=== PATIENT | female | born 1955 | race Caucasian/White ===

== ENCOUNTER 2020-01-03 10:16 | Outpatient (CLI) | payer MEDICARE, MEDICAID, SELFPAY ==
[2020-01-03 10:30] VITALS: PULSE 86; O2SAT 95
[2020-01-03 10:35] VITALS: PULSE 110; O2SAT 84
[2020-01-03 10:37] VITALS: O2SAT 85
[2020-01-03 10:39] VITALS: PULSE 103; O2SAT 87
[2020-01-03 10:42] VITALS: PULSE 100; O2SAT 93
[2020-01-03 10:55] VITALS: PULSE 82; O2SAT 93
--- NOTE | 2020-01-03 12:49 | HOMEO2EVAL ---
Home Oxygen Evaluation RC: Home Oxygen (O2) Evaluation Start: 01/03/20 12:32 Freq: Status: Active Protocol: RPE Activity Type Activity Date Activity User E-Sign Co-Sign Detail Recorded Client Recorded Date Recorded By Document 01/03/20 10:30 [email or web address] [email or web address] 01/03/20 12:41 DJO Document 01/03/20 10:35 [email or web address] [email or web address] 01/03/20 12:41 DJO Document 01/03/20 10:37 [email or web address] [email or web address] 01/03/20 12:41 DJO Document 01/03/20 10:39 DJO [email or web address] 01/03/20 12:41 DJO Document 01/03/20 10:42 [email or web address] [email or web address] 01/03/20 12:41 DJO Document 01/03/20 10:55 [email or web address] [email or web address] 01/03/20 12:41 DJO 01/03/20 01/03/20 01/03/20 10:30 10:35 10:37 Home O2 Evaluation Test Phase Resting Exercise Exercise Oxygen Delivery Room Air Room Air Nasal Cannula Oxygen Flow Rate (L/min) 1 Pulse Oximetry (90-100 %) 95 84 L 85 L Pulse Rate (60-100 beats/min) 86 110 H Activity Tolerance Fair Rating of Perceived Dyspnea (PD) +3 Moderate Difficulty, But Can Continue Rate of Perceived Exertion (PE) 13 Somewhat Hard Ambulation Distance (feet) 100 Treatment Charges O2 Evaluation 01/03/20 01/03/20 01/03/20 10:39 10:42 10:55 Home O2 Evaluation Test Phase Exercise Exercise Resting Oxygen Delivery Nasal Cannula Nasal Cannula Room Air Oxygen Flow Rate (L/min) 2 3 Pulse Oximetry (90-100 %) 87 L 93 93 Pulse Rate (60-100 beats/min) 103 H 100 82 Activity Tolerance Rating of Perceived Dyspnea (PD) Rate of Perceived Exertion (PE) Ambulation Distance (feet) Treatment Charges
== END 2020-01-03 10:17 | disposition home or self-care (01) ==
LOC: ANHPFT 10:19
PROVIDERS: PCP Internal Medicine; Visit Provider Nurse Practitioner Family
DX: J44.9 Chronic obstructive pulmonary disease, unspecified (principal)
CPT/HCPCS: 94618

== ENCOUNTER 2020-01-10 12:21 | Outpatient (CLI) | payer MEDICARE, MEDICAID, SELFPAY ==
--- NOTE | ~2020-01-10 | CT_ITS ---
EXAMINATION: CT lung screening EXAM DATE: 01/10/2020 12:42 INDICATION: Personal history of nicotine dependence. TECHNIQUE: Spiral low dose CT of the chest without contrast. Axial, coronal and sagittal images were reviewed. The dose-length product (DLP) for this examination was 172.74 mGy-cm. The exposure was t ailored according to patient size (auto mA exposure control), and iterative reconstruction (ASIR) was used as additional dose reduction technique. Comparison is made to prior examination from 12/26/2018. FINDINGS: Previously biopsied left upper lobe nodule has decreased in size, now measures about 1.0 c m. There is another 3 mm left upper lobe nodule also unchanged. Several other smaller left upper lobe nodules, one of which may be new. There is moderate to severe emphysema Tracheobronchial tree is pat ent. There is no mediastinal, hilar or axillary lymphadenopathy. There are no pleural or pericard ial effusions. There is no pneumothorax. Heart normal in size. There is mild coronary arterial calcification, arterial sclerosis. There is small to moderate sliding gastroesophageal hiatal hernia. Upper abdomen is unremarkable. There is thoracic spondylosis without osteoblastic or osteolytic l esions identified. IMPRESSION: Lung-RADS category 2, benign appearance or behavior (<1% chance of malignancy); recommend continued LDCT screening in 1 year. Reviewed, dictated and finalized at location A.
== END 2020-01-10 12:22 | disposition home or self-care (01) ==
PROVIDERS: Visit Provider Nurse Practitioner Family
DX: Z12.2 Encounter for screening for malignant neoplasm of respiratory organs (principal); Z87.891 Personal history of nicotine dependence
CPT/HCPCS: G0297

== ENCOUNTER 2020-08-20 15:05 | Outpatient (CLI) | payer MEDICARE, MEDICAID, SELFPAY | END 2020-08-20 15:06 | disposition home or self-care (01) | DX: Z23 Encounter for immunization (principal) | CPT/HCPCS: 0001A; 91300 ==

== ENCOUNTER 2020-09-10 14:55 | Outpatient (CLI) | payer MEDICARE, MEDICAID, SELFPAY | END 2020-09-10 14:56 | disposition home or self-care (01) | LOC: ANHCOVIDVC 14:55 | DX: Z23 Encounter for immunization (principal) | CPT/HCPCS: 0002A; 91300 ==

== ENCOUNTER 2021-01-30 12:59 | Outpatient (CLI) | payer MEDICARE, MEDICAID, SELFPAY ==
--- NOTE | ~2021-01-30 | CT_ITS ---
EXAMINATION: CT lung screening DATE: 01/30/2021 13:17 INDICATION: Personal history of tobacco dependence, prior smoker with 34 pack year history TECHNIQUE: Computed tomography (CT) of the chest was performed without intravenous contrast. The dose -length product (DLP) was 233.40 mGy-cm. Automated exposure control and iterative reconstruction tech [employer] were employed. COMPARISON: 01/10/2020 FINDINGS: There is moderate emphysema. There are multiple stable pulmonary nodules, the largest of wh ich measures 10 mm in the left upper lobe. No new pulmonary nodules are identified. The lungs are ashanti e of acute opacities. There is no pleural effusion or pneumothorax. No pathologically enlarged thorac ic lymph nodes are identified. The heart size is normal. There is a moderate-sized sliding hiatal her tobin. There is moderate thoracic spondylosis. IMPRESSION: 1. Lung-RADS category 2: Benign appearance or behavior. Continue annual screening with noncontrast lo w-dose chest CT in 12 months. Reviewed, dictated and finalized at location B. IMPRESSION: 1. Lung-RADS category 2: Benign appearance or behavior. Continue annual screeni ng with noncontrast low-dose chest CT in 12 months.
== END 2021-01-30 13:00 | disposition home or self-care (01) ==
LOC: ANHIMG 13:00
PROVIDERS: Visit Provider Nurse Practitioner Family
DX: Z87.891 Personal history of nicotine dependence (principal)
CPT/HCPCS: 71271

== ENCOUNTER 2021-04-01 10:44 | Outpatient (CLI) | payer MEDICARE, MEDICAID, SELFPAY ==
--- NOTE | ~2021-04-01 | MM_ITS ---
EXAMINATION: MM screening sara BI w keiry HISTORY: Screening TECHNIQUE: Craniocaudal and mediolateral oblique 3-D tomosynthesis images were obtained and synthetic 2-D images were generated. CAD analysis was submitted and interpreted. COMPARISON: No prior mammogram is available for comparison at this institution. BREAST PARENCHYMAL COMPOSITION: The breasts are almost entirely fatty. FINDINGS: There is no evidence of suspicious mass, calcification, or architectural distortion to sugg est malignancy in either breast. There has been no suspicious interval change. IMPRESSION: 1. No mammographic evidence of malignancy. 2. Recommend routine screening mammography in one year. BI-RADS Category 1: Negative Reviewed, dictated and finalized at location A.
== END 2021-04-01 10:45 | disposition home or self-care (01) ==
PROVIDERS: Visit Provider Internal Medicine
DX: Z12.31 Encounter for screening mammogram for malignant neoplasm of breast (principal)
CPT/HCPCS: 77063; 77067

== ENCOUNTER 2021-05-22 14:57 | Outpatient (CLI) | payer MEDICARE, MEDICAID, SELFPAY ==
--- NOTE | ~2021-05-22 | DEXA_ITS ---
Bone Density Report Name: Diamante Castro Age: 65 Sex: Female Ethnicity: White Date of : 1955 Indication: postmenopausal; height loss; prior fracture; asthma or emphysema; Referring Provider: IMELDA, NOLAN Callahan Study: Bone densitometry was performed. Exam Date: May 22, 2021 Accession number: [id number] Bone Density: Region BMD T-score Z-score Classification AP Spine (L1, L2, L3) 1.073 0.5 2.4 Normal Femoral Neck (Left) 0.529 -2.9 -1.2 Osteoporosis Total Hip (Left) 0.836 -0.9 0.5 Normal Total Hip Bilateral Avg 0.805 -1.1 0.3 Osteopenia Femoral Neck (Right) 0.588 -2.4 -0.7 Osteopenia Total Hip (Right) 0.773 -1.4 0.0 Osteopenia World Health Organization criteria for BMD impression classify patients as: Normal (T-score at or above -1.0), Osteopenia (T-score between -1.0 and -2.5), or Osteoporosis (T-score at or below -2.5). 10-year Fracture Risk: FRAX not reported because: Some T-score for Spine Total or Hip Total or Femoral Neck at or below -2.5 Treated for osteoporosis Clinical Information Provided by Patient: Has had a low trauma fracture Is being treated for osteoporosis Has used the following medications: Fosamax (i.e. alendronate), Vitamin D Has the following medical conditions: Asthma or Emphysema Patient maximum height was 65 Menopause Age: 48 No regular weight bearing exercise Onset of menses at age 13 Number of children 3 Impression: The patient has established osteoporosis, based on the Left Femoral Neck T-score and the existence of a prior fracture. The patient has risk factors, including: previous fracture. Discussion: It is important to ask patients whether they are taking their medications and to encourage continued and appropriate compliance with their osteoporosis therapies to reduce fracture risk. It is also important to review their risk factors and encourage appropriate calcium and vitamin D intakes, exercise, fall prevention and other lifestyle measures. Follow-Up: Consider a repeat BMD and Vertebral Fracture Assessment (VFA) exam in 2 years or sooner if medically necessary, to reassess this patient's status. Reported by: JAQUI on 05/22/2021 3:17:00 PM. Reviewed, dictated and finalized at location [facility]
== END 2021-05-22 14:58 | disposition home or self-care (01) ==
LOC: ANHIMG 14:59
PROVIDERS: Visit Provider Internal Medicine
DX: M81.0 Age-related osteoporosis without current pathological fracture (principal); M85.851 Other specified disorders of bone density and structure, right thigh
CPT/HCPCS: 77080

== ENCOUNTER 2022-01-22 09:59 | Outpatient (CLI) | payer MEDICARE, MEDICAID, SELFPAY ==
--- NOTE | ~2022-01-22 | CT_ITS ---
EXAMINATION: CT diagnostic chest wo con DATE: 01/22/2022 10:54 INDICATION: Lung nodule follow-up TECHNIQUE: Computed tomography (CT) of the chest was performed without intravenous contrast. Automate d exposure control and iterative reconstruction technique were employed. Exam dose: 223.18 mGy-cm to sia exam DLP. COMPARISON: 01/30/2021 CT lung screening FINDINGS: Prominent emphysematous changes of the lungs. No significant new or enlarging pulmonary mass since 01/30/2021 is detected. No pulmonary infiltrate o r consolidation. No hilar or mediastinal mass lesion or lymphadenopathy. Normal caliber of the thoracic aorta. Normal heart size. Coronary calcifications. Moderate size hiatal hernia. Prominent degenerative disc disease in the lower cervical spine. 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 No suspicious osteolytic or osteoblastic lesions. IMPRESSION: Prominent emphysematous changes of the lungs; no significant new or enlarging pulmonary mass lesion is noted since 01/30/2021 Reviewed, dictated and finalized at Location A. Reviewed, dictated and finalized at location B. IMPRESSION: Prominent emphysematous changes of the lungs; no significant new o r enlarging pulmonary mass lesion is noted since 01/30/2021
== END 2022-01-22 10:00 | disposition home or self-care (01) ==
PROVIDERS: Visit Provider Nurse Practitioner Family
DX: R91.8 Other nonspecific abnormal finding of lung field (principal)
CPT/HCPCS: 71250

== ENCOUNTER 2022-07-22 09:44 | Outpatient (CLI) | payer MEDICARE, MEDICAID, SELFPAY ==
--- NOTE | ~2022-07-22 | MM_ITS ---
EXAMINATION: MM screening sara BI w keiry HISTORY: Screening TECHNIQUE: Craniocaudal and mediolateral oblique 3-D tomosynthesis images were obtained and synthetic 2-D images were generated. CAD analysis was submitted and interpreted. COMPARISON: 04/01/2021 BREAST PARENCHYMAL COMPOSITION: The breasts are almost entirely fatty. FINDINGS: There is no evidence of suspicious mass, calcification, or architectural distortion to sugg est malignancy in either breast. There has been no suspicious interval change. IMPRESSION: 1. No mammographic evidence of malignancy. 2. Recommend routine screening mammography in one year. BI-RADS Category 1: Negative Reviewed, dictated and finalized at location A. [employer]
== END 2022-07-22 09:45 | disposition home or self-care (01) ==
PROVIDERS: Visit Provider Internal Medicine
DX: Z12.31 Encounter for screening mammogram for malignant neoplasm of breast (principal)
CPT/HCPCS: 77063; 77067

== ENCOUNTER 2023-02-02 10:59 | Outpatient (CLI) | payer MEDICARE, MEDICAID, SELFPAY ==
--- NOTE | ~2023-02-02 | XR_ITS ---
EXAMINATION: XR chest 2V DATE: 02/02/2023 11:27 INDICATION: Severe dyspnea with exertion TECHNIQUE: PA and lateral views of the chest were obtained. COMPARISON: Chest CT dated 01/22/2022 and chest radiograph dated 01/08/2019 FINDINGS: Pulmonary vascular congestion which accentuates some increased lucency and architectural distortion i n the upper lung zones consistent with emphysema better appreciated on prior CT. Mild increased inter stitial pattern with some bronchial wall thickening at the posterior lower lung zones. No focal airsp stevenson opacities, pleural effusion or pneumothorax. Heart size is normal. Small hiatal hernia. Moderate thoracic spondylosis. The cardiomediastinal silhouette is normal. Visualized bones and soft tissues a re unremarkable. IMPRESSION: 1. Emphysema with mild increased interstitial pattern and bronchial wall thickening without focal air space opacities in the posterior lower lung zones. Differential would include mild pulmonary edema, b ronchitis or reactive airway disease/asthma. 2. Small hiatal hernia. Reviewed, dictated and finalized at location A. IMPRESSION: 1. Emphysema with mild increased interstitial pattern and bronchial wall thicke baljeet without focal airspace opacities in the posterior lower lung zones. Differ ential would include mild pulmonary edema, bronchitis or reactive airway diseas e/asthma. 2. Small hiatal hernia.
== END 2023-02-02 11:00 | disposition home or self-care (01) ==
PROVIDERS: Visit Provider Nurse Practitioner Family
DX: R06.09 Other forms of dyspnea (principal); K44.9 Diaphragmatic hernia without obstruction or gangrene; J43.9 Emphysema, unspecified
CPT/HCPCS: 71046

== ENCOUNTER 2023-04-29 09:53 | Emergency (ER) | payer MEDICARE, MEDICAID, SELFPAY ==
--- NOTE | ~2023-04-29 | XR_ITS ---
AP view of the pelvis and AP and lateral views of the left hip Clinical history: Pain Findings: No acute fracture or dislocation is seen. Osseous alignment is anatomic. Bilateral hip and SI joint spaces are preserved. Soft tissues are unremarkable. Impression: No significant abnormality is seen. Reviewed, dictated and finalized at [facility]. [employer] Impression: No significant abnormality is seen.
[2023-04-29 10:01] VITALS: BP 161/98; PULSE 89; RESP 16; TEMP 36.8; O2SAT 100
[2023-04-29 10:06] VITALS: BP 161/98; PULSE 89; RESP 18; TEMP 36.8; O2SAT 100
--- NOTE | 2023-04-29 10:28 | ED.LOWEXIN ---
HPI - Extremity Injury (Lower) General Chief Complaint: Extremity Injury, Lower <Amna Walsh PA-C - Last Filed: 04/29/23 11:29> Stated Complaint: groin muscle pain <Amna Walsh PA-C - Last Filed: 04/29/23 11:29> Time Seen by Provider: 04/29/23 10:22 <Amna Walsh PA-C - Last Filed: 04/29/23 11:29> History of Present Illness HPI Narrative: 67-year-old female with a history of COPD who is on 4 L of oxygen via nasal cannula at baseline reports for evaluation for left groin pain x1 day. Patient states yesterday she was in the shower when she slipped, caught herself on the wall and splayed her left legs. States since then, she has had pain in her left groin that is worse with movement and ambulation and better when sitting. She states she did not have any pain in this area prior to the incident in the shower. She did not fall to the ground, hit her head or require any other injury. No redness or overlying rashes. No abdominal pain or back pain. Denies urinary frequency urgency, dysuria or hematuria. <Amna Walsh PA-C - Last Filed: 04/29/23 11:29> Related Data Home Medications: Home Medications Medication Instructions Recorded Confirmed aspirin 81 mg tablet,delayed 81 mg PO DAILY 05/09/19 08/05/22 release (Adult Low Dose Aspirin) atorvastatin 20 mg tablet 20 mg PO DAILY 05/09/19 08/05/22 bupropion HCl 100 mg tablet 100 mg PO BID 05/09/19 08/05/22 cetirizine 10 mg tablet (Zyrtec) 5 mg PO DAILY PRN 05/09/19 08/05/22 citalopram 40 mg tablet 20 mg PO DAILY 05/09/19 08/05/22 levothyroxine 112 mcg tablet 112 mcg PO DAILY 05/09/19 08/05/22 lisinopril 20 mg tablet 20 mg PO DAILY 05/09/19 08/05/22 omeprazole magnesium 20 mg 20 mg PO DAILY 05/09/19 08/05/22 capsule,delayed release tolterodine 4 mg capsule,extended 4 mg PO DAILY 05/09/19 08/05/22 release 24 hr pramipexole 1 mg tablet 1 mg PO TID 07/13/21 08/05/22 trazodone 100 mg tablet 100 mg PO QHS PRN 07/13/21 08/05/22 alendronate 70 mg tablet mg PO 02/02/23 02/02/23 ergocalciferol (vitamin D2) 1,250 1,250 mcg PO 2XW 02/02/23 02/02/23 mcg (50,000 unit) capsule <Amna Walsh PA-C - Last Filed: 04/29/23 11:29> Allergies/Adverse Reactions: Allergies Allergy/AdvReac Type Severity Reaction Status Date / Time No Known Allergies Allergy Verified 04/29/23 10:11 <Amna Walsh PA-C - Last Filed: 04/29/23 11:29> Review of Systems Review of Systems: CONSTITUTIONAL: Denies fever, chills EYES: Denies visual changes, redness, or discharge. ENT: Denies rhinorrhea, congestion, sore throat, or otalgia. CARDIOVASCULAR: Denies chest pain, palpitations, or edema. RESPIRATORY: Denies cough or dyspnea. GASTROINTESTINAL: Denies abdominal pain, nausea, vomiting, or diarrhea. GENITOURINARY: Denies dysuria or hematuria. SKIN: Denies rash or itching. MUSCULOSKELETAL: See HPI NEUROLOGIC: Denies headache, numbness, dizziness, or weakness. PSYCHIATRIC: Denies anxiety or depression. <Amna Walsh PA-C - Last Filed: 04/29/23 11:29> [facility] Surgical History Surgical History: Surgical History Bladder polyps Tonsillectomy planned <Amna Walsh PA-C - Last Filed: 04/29/23 11:29> Family History Family History: Family History Sibling Hypertension Grandparent Hypertension Mother Hypertension Father Hypertension Asthma Daughter Brain injury Malignant neoplastic disease <Amna Walsh PA-C - Last Filed: 04/29/23 11:29> Social History Social History: Social History Smoking packs per day: 1 Smoking cigarettes per day: 20.0 Years smoked: 34 Smoking pack-years: 34.00 Smoking status: Former smoker Tobacco type: cigarettes Smoking end date: 06/20/05 Alcohol intake: current <Amna Walsh
[2023-04-29] MEDS: ACETAMINOPHEN 500 MG TABLET 1000 MG PO (10:32)
[2023-04-29] MEDS: CYCLOBENZAPRINE HCL 10 MG TABLET PO (10:33)
[2023-04-29] MEDS: LIDOCAINE 5% PATCH 1 PATCH TRANSDERM (10:33)
[2023-04-29 11:12] VITALS: BP 159/87; PULSE 83; RESP 20; O2SAT 99
== END 2023-04-29 11:39 | disposition home or self-care (01) ==
PROVIDERS: Emergency Provider Physician Assistant; PCP Internal Medicine
DX: S76.212A Strain of adductor muscle, fascia and tendon of left thigh, initial encounter (principal); J44.9 Chronic obstructive pulmonary disease, unspecified; Z99.81 Dependence on supplemental oxygen; Z87.891 Personal history of nicotine dependence; W18.2XXA Fall in (into) shower or empty bathtub, initial encounter
CPT/HCPCS: 73502; 99283; A9270

== ENCOUNTER 2023-05-21 10:10 | Emergency (ER) | payer MEDICARE, MEDICAID, SELFPAY ==
--- NOTE | 2023-05-21 10:21 | PC.NURSE ---
in br to obtain ua spec.
[2023-05-21 10:30] VITALS: BP 158/90; PULSE 94; RESP 20; TEMP 37.4; O2SAT 96
--- NOTE | 2023-05-21 10:42 | ED.FEMALEGU ---
HPI - Female Genitourinary General Chief complaint: Urogenital-Female Stated complaint: Urinary issue Time Seen by Provider: 05/21/23 10:42 Source: patient Mode of arrival: ambulatory Limitations: no limitations History of Present Illness HPI Narrative: 67-year-old female presents a complaint decreased urine output starting yesterday. Reports she woke up at 2:00 a.m. today with dysuria, continues to have decreased urine output. Is having some mild incontinence. Afebrile. Denies abdominal and back pain. All systems reviewed and negative except as noted above. Related Data Home Medications Medication Instructions Recorded Confirmed aspirin 81 mg tablet,delayed 81 mg PO DAILY 05/09/19 08/05/22 release (Adult Low Dose Aspirin) atorvastatin 20 mg tablet 20 mg PO DAILY 05/09/19 08/05/22 bupropion HCl 100 mg tablet 100 mg PO BID 05/09/19 08/05/22 cetirizine 10 mg tablet (Zyrtec) 5 mg PO DAILY PRN 05/09/19 08/05/22 citalopram 40 mg tablet 20 mg PO DAILY 05/09/19 08/05/22 levothyroxine 112 mcg tablet 112 mcg PO DAILY 05/09/19 08/05/22 lisinopril 20 mg tablet 20 mg PO DAILY 05/09/19 08/05/22 omeprazole magnesium 20 mg 20 mg PO DAILY 05/09/19 08/05/22 capsule,delayed release tolterodine 4 mg capsule,extended 4 mg PO DAILY 05/09/19 08/05/22 release 24 hr pramipexole 1 mg tablet 1 mg PO TID 07/13/21 08/05/22 trazodone 100 mg tablet 100 mg PO QHS PRN 07/13/21 08/05/22 alendronate 70 mg tablet mg PO 02/02/23 02/02/23 ergocalciferol (vitamin D2) 1,250 1,250 mcg PO 2XW 02/02/23 02/02/23 mcg (50,000 unit) capsule 4 L 05/21/23 fluticasone fur. 100 mcg-umeclid inhalation 05/21/23 62.5 mcg-vilant 25 mcg inhalat.powder (Trelegy Ellipta) roflumilast 500 mcg tablet mcg 05/21/23 (Daliresp) Allergies Allergy/AdvReac Type Severity Reaction Status Date / Time No Known Allergies Allergy Verified 05/21/23 10:17 Review of Systems Review of Systems: CONSTITUTIONAL: Denies fever, chills, or sweats. EYES: Denies visual changes, redness, or discharge. ENT: Denies rhinorrhea, congestion, sore throat, or otalgia. CARDIOVASCULAR: Denies chest pain, palpitations, or edema. RESPIRATORY: Denies cough or dyspnea. GASTROINTESTINAL: Denies abdominal pain, nausea, vomiting, or diarrhea. GENITOURINARY: Reports dysuria, decreased urine output. SKIN: Denies rash or itching. MUSCULOSKELETAL: Denies back pain, joint pain, or myalgia. NEUROLOGIC: Denies headache, numbness, or weakness. PSYCHIATRIC: Denies anxiety or depression. All other systems reviewed are negative, except as documented in HPI. [facility] Surgical History Surgical History Bladder polyps Tonsillectomy planned Family History Family History Sibling Hypertension Grandparent Hypertension Mother Hypertension Father Hypertension Asthma Daughter Brain injury Malignant neoplastic disease Social History Social History Smoking packs per day: 1 Smoking cigarettes per day: 20.0 Years smoked: 34 Smoking pack-years: 34.00 Smoking status: Former smoker Tobacco type: cigarettes Smoking end date: 06/20/05 Alcohol intake: current Comments At time of signature, agree with nursing past medical, surgical, social and family history. There is no relevant family history pertinent to the presenting complaint. Exam Narrative: GENERAL: This is a well-nourished, well-developed patient, in no apparent distress. HEAD: normocephalic, atraumatic. EYES: PERRL. Sclera clear/white. Vision is grossly intact. EARS: External ears normal NOSE: External nose normal NECK: Neck supple, non-tender without lymphadenopathy, masses or thyromegaly. CARDIOVASCULAR: Regular rate and rhythm without murmurs, gallops, or rubs. RESPIRATORY: Clear to auscultation. Breath sounds equal b
[2023-05-21 10:45] VITALS: PULSE 92
== END 2023-05-21 10:52 | disposition home or self-care (01) ==
PROVIDERS: Emergency Provider Nurse Practitioner Family; PCP Internal Medicine
DX: N39.0 Urinary tract infection, site not specified (principal); Z87.891 Personal history of nicotine dependence; Z79.82 Long term (current) use of aspirin
CPT/HCPCS: 81003; 87086; 99213; G0463

== ENCOUNTER 2023-06-02 18:16 | Emergency (ER) | payer MEDICARE, MEDICAID, SELFPAY ==
--- NOTE | ~2023-06-02 | CT_ITS ---
EXAMINATION: CT abdomen pelvis wo con DATE: 06/02/2023 21:47 INDICATION: Urinary tract infection and left lower quadrant abdominal pain. TECHNIQUE: Computed tomography (CT) of the abdomen and pelvis was performed without intravenous contr ast. Automated exposure control and iterative reconstruction technique were employed. The dose-length product was 717.88 mGy-cm. COMPARISON: None FINDINGS: Moderate emphysema in the bilateral lower lungs. Discoid atelectasis at the lingula. Heart size is no rmal. Atherosclerotic coronary artery calcification. No pericardial or pleural effusion. Moderate-siz ed sliding-type hiatal hernia. 8 mm cyst in the right hepatic lobe. Gallbladder, spleen, pancreas and bilateral adrenal glands are normal. Kidneys and ureters are normal with no urolithiasis, hydrourete ronephrosis or perinephric/ureteral stranding. There is mild colonic diverticulosis with a sigmoid pr edominance. There is no adjacent inflammatory change to suggest diverticulitis. Bladder, anteverted uterus and bilateral adnexa are unremarkable. No free intraperitoneal gas or fluid. No pathologically enlarged abdominal or pelvic lymphadenopathy. Severe lumbar and lower thoracic spondylosis. Sclerosi s associated with healing subacute nondisplaced sagittal oriented fracture of the right sacral ala an d nondisplaced fracture of the left pubic body. IMPRESSION: 1. No urolithiasis or acute intra-abdominal/pelvic process. 2. Healing subacute appearing nondisplaced fractures of the right sacral ala and left pubic body. 3. Moderate-sized sliding-type hiatal hernia. 4. Mild diverticulosis. Reviewed, dictated and finalized at location A. [employer] IMPRESSION: 1. No urolithiasis or acute intra-abdominal/pelvic process. 2. Healing subacute appearing nondisplaced fractures of the right sacral ala an d left pubic body. 3. Moderate-sized sliding-type hiatal hernia. 4. Mild diverticulosis.
[2023-06-02 18:29] VITALS: BP 161/78; PULSE 96; RESP 20; TEMP 37.3; O2SAT 99
[2023-06-02 19:05] LABS: Basophils Absolute Auto 0.1 K/mm3 (0.0-0.1); Basophils Percent Auto 0.5 % (0.2-1.2); Eosinophils Absolute Auto 0.3 K/mm3 (0-0.3); Eosinophils Percent Auto 1.7 % (0-4.4); Hematocrit 36.3 % (37.0-47.0); Hemoglobin 10.3 g/dL (12.0-15.0); Immature Granulocyte Absolute 0.06 K/mm3 (0.00-0.031); Immature Granulocyte Percent A 0.4 % (0-0.5); Lymphocytes Absolute Auto 2.07 K/mm3 (0.9-3.2); Lymphocytes Percent Auto 13.3 % (18.3-44.2); Mean Corpuscular HGB Conc 28.4 g/dl (32-36); Mean Corpuscular Hemoglobin 22.7 pg (26-34); Mean Corpuscular Volume 80.1 fl (80-100); Mean Platelet Volume 9.7 fl (7.4-10.4); Monocytes Absolute Auto 0.7 K/mm3 (0.1-0.6); Monocytes Percent Auto 4.5 % (2.6-8.5); Neutrophils Absolute Auto 12.4 K/mm3 (1.3-6.7); Neutrophils Percent Auto 79.6 % (45.5-73.1); Platelet Count Result 449 k/mm3 (150-375); Red Blood Count 4.53 M/mm3 (4.2-5.4); Red Cell Distribution Width 16.1 % (11.5-14.5); White Blood Count 15.5 K/mm3 (4.5-10.0)
[2023-06-02 19:11] LABS: Appearance Urine Cloudy (Clear); Bacteria Urine None Seen /hpf; Bilirubin Urine Negative (Negative); Blood Urine 1+ (Negative); Color Urine Yellow (Yellow); Glucose Urine UA Negative (Negative); Ketones Urine Negative (Negative); Leukocyte Esterase Ur 3+ LEU/UL (Negative); Nitrate Urine Negative (Negative); Non Pathogenic Casts 0-2; Protein Urine Negative (Negative); Squamous Epithelial Cell Urine None seen /hpf (Few); Urobilinogen Urine 0.2 mg/dL (<2.0); WBC Urine >100 /hpf; pH Urine 6.5 (5.0-9.0)
[2023-06-02 19:14] LABS: Alanine Aminotransferase 16 U/L (6-35); Albumin Level 4.3 g/dL (3.5-5.1); Alkaline Phosphatase 138 U/L (38-126); Anion Gap 6 mmol/L (8-16); Aspartate Amino Transferase 21 U/L (14-36); Bilirubin,Total 0.4 mg/dL (0.2-1.3); Blood Urea Nitrogen 10 mg/dL (7-17); Calcium 9.7 mg/dL (8.4-10.2); Carbon Dioxide 31 mmol/L (22-30); Chloride 103 mmol/L (98-107); Estimated CRCL calculation 55 ml/min; Estimated Glomerular Filt Rate > 60; Glucose 97 mg/dL (65-110); Potassium 3.7 mmol/L (3.4-5.0); Sodium 140 mmol/L (137-145)
[2023-06-02 19:16] LABS: Add Urine Microscopic? YES
[2023-06-02 19:20] LABS: Hypochromasia 1+ (NORMAL); Ovalocytes 1+ (NORMAL); Platelet Estimate Increased (Adequate); Schistocytes None Seen (NORMAL)
[2023-06-02 21:22] VITALS: BP 171/89; PULSE 85; RESP 14; O2SAT 98
--- NOTE | 2023-06-02 22:22 | ED.GENADULT ---
HPI - General Adult General Chief complaint: Urogenital-Female Stated complaint: UTI unresolved Time Seen by Provider: 06/02/23 21:21 History of Present Illness HPI narrative: patient is a 67-year-old female who presents emerged from with a chief complaint of urinary frequency and left lower quadrant pain. He reports he was seen here recently diagnosed with the UTI started on Cipro. The patient reports she completed the Cipro reports she is still having symptoms at this time. Patient denies fever denies vomiting Related Data Home Medications Medication Instructions Recorded Confirmed aspirin 81 mg tablet,delayed 81 mg PO DAILY 05/09/19 08/05/22 release (Adult Low Dose Aspirin) atorvastatin 20 mg tablet 20 mg PO DAILY 05/09/19 08/05/22 bupropion HCl 100 mg tablet 100 mg PO BID 05/09/19 08/05/22 cetirizine 10 mg tablet (Zyrtec) 5 mg PO DAILY PRN 05/09/19 08/05/22 citalopram 40 mg tablet 20 mg PO DAILY 05/09/19 08/05/22 levothyroxine 112 mcg tablet 112 mcg PO DAILY 05/09/19 08/05/22 lisinopril 20 mg tablet 20 mg PO DAILY 05/09/19 08/05/22 omeprazole magnesium 20 mg 20 mg PO DAILY 05/09/19 08/05/22 capsule,delayed release tolterodine 4 mg capsule,extended 4 mg PO DAILY 05/09/19 08/05/22 release 24 hr pramipexole 1 mg tablet 1 mg PO TID 07/13/21 08/05/22 trazodone 100 mg tablet 100 mg PO QHS PRN 07/13/21 08/05/22 alendronate 70 mg tablet mg PO 02/02/23 02/02/23 ergocalciferol (vitamin D2) 1,250 1,250 mcg PO 2XW 02/02/23 02/02/23 mcg (50,000 unit) capsule 4 L 05/21/23 fluticasone fur. 100 mcg-umeclid inhalation 05/21/23 62.5 mcg-vilant 25 mcg inhalat.powder (Trelegy Ellipta) roflumilast 500 mcg tablet mcg 05/21/23 (Daliresp) Allergies Allergy/AdvReac Type Severity Reaction Status Date / Time No Known Allergies Allergy Verified 05/21/23 10:17 Review of Systems Review of Systems: A 10 system review of systems was completed on the patient and is negative except for what is stated in the HPI. Nursing and ancillary documentation was reviewed. PMFSH Surgical History Surgical History Bladder polyps Tonsillectomy planned Family History Family History Sibling Hypertension Grandparent Hypertension Mother Hypertension Father Hypertension Asthma Daughter Brain injury Malignant neoplastic disease Social History Social History Smoking packs per day: 1 Smoking cigarettes per day: 20.0 Years smoked: 34 Smoking pack-years: 34.00 Smoking status: Former smoker Tobacco type: cigarettes Smoking end date: 06/20/05 Alcohol intake: current Exam Narrative: GENERAL: Well-appearing, well-nourished, and in no acute distress. HEAD: Normocephalic, atraumatic. EYES: PERRLA and EOMI. ENT: Nares clear, no rhinorrhea or epistaxis. Mucous membranes moist. NECK: Supple. CHEST: Clear to auscultation. No respiratory distress. HEART: Regular rate and rhythm. No murmur heard. Normal peripheral pulses. ABDOMEN: Soft, mild tenderness to palpation in the left lower quadrant, nondistended, normal active bowel sounds. EXTREMITIES: Normal range of motion. No edema. SKIN: Warm, dry, no rash. NEURO: No focal deficits. Alert and oriented x3. PSYCH: Normal mood and affect. Course Vital Signs Vital signs: Vital Signs Temperature 37.3 C 06/02/23 18:29 Pulse Rate 96 06/02/23 18:29 Respiratory Rate 20 06/02/23 18:29 Blood Pressure 161/78 H 06/02/23 18:29 Pulse Oximetry 99 06/02/23 18:29 Oxygen Delivery Room Air 06/02/23 18:29 Temperature 37.3 C 06/02/23 18:29 Pulse Rate 85 06/02/23 21:22 Respiratory Rate 14 06/02/23 21:22 Blood Pressure 171/89 H 06/02/23 21:22 Pulse Oximetry 98 06/02/23 21:22 Oxygen Delivery Room Air 06/02/23 18:29 Medi
== END 2023-06-02 23:10 | disposition home or self-care (01) ==
PROVIDERS: Student in an Organized Health Care Education/Training Program; Emergency Provider Emergency Medicine; PCP Internal Medicine
DX: N39.0 Urinary tract infection, site not specified (principal); Z79.82 Long term (current) use of aspirin; Z87.891 Personal history of nicotine dependence
CPT/HCPCS: 36415; 74176; 80053; 81001; 85025; 87077; 87086; 87186; 96365; 99284; J0696

== ENCOUNTER 2023-09-07 12:38 | Outpatient (CLI) | payer MEDICARE, MEDICAID, SELFPAY ==
--- NOTE | ~2023-09-07 | DEXA_ITS ---
Bone Density Report Name: DEIDRA SHERIFF Age: 68 Sex: Female Ethnicity: White Date of : 1955 Indication: osteopenia; monitoring treatment; parental hip fracture; height loss; asthma or emphysema; Referring Provider: IMELDA, NOLAN Callahan Study: Bone densitometry was performed. Exam Date: September 07, 2023 Accession number: [id number] Bone Density: Region BMD T-score Z-score Classification AP Spine(L1, L2, L3) 0.891 -1.2 0.9 Osteopenia Femoral Neck (Left) 0.521 -3.0 -1.2 Osteoporosis Total Hip (Left) 0.848 -0.8 0.7 Normal Femoral Neck (Right) 0.567 -2.5 -0.7 Osteoporosis Total Hip (Right) 0.780 -1.3 0.2 Osteopenia Total Hip Mean 0.814 -1.1 0.5 Osteopenia World Health Organization criteria for BMD impression classify patients as: Normal (T-score at or above -1.0), Osteopenia (T-score between -1.0 and -2.5), or Osteoporosis (T-score at or below -2.5). 10-year Fracture Risk: FRAX not reported because: Some T-score for Spine Total or Hip Total or Femoral Neck at or below -2.5 Treated for osteoporosis Previous Exams: Region Exam Age BMD T-score BMD Change BMD Change Date g/cm2 vs Baseline vs Previous AP Spine (L1-L3) 09/07/2023 68 0.891 -1.2 -0.182 (-17.0% -0.182 (-17.0% 05/22/2021 65 1.073 0.5 Total Hip(Left) 09/07/2023 68 0.848 -0.8 0.012 (1.5%)# 0.012 (1.5%)# 05/22/2021 65 0.836 -0.9 Total Hip(Right) 09/07/2023 68 0.780 -1.3 0.007 (0.9%)# 0.007 (0.9%)# 05/22/2021 65 0.773 -1.4 *Denotes significance at 95% confidence level, LSC for AP Spine = 0.022 g/cm2, LSC for Total Hip = 0.027 g/cm2 # Denotes dissimilar scan types or analysis methods Clinical Information Provided by Patient: Parent has had a hip fracture Smokes Is being treated for osteoporosis Has used the following medications: Fosamax (i.e. alendronate), Vitamin D Has the following medical conditions: Asthma or Emphysema Patient maximum height was 65 Menopause Age: 48 No regular weight bearing exercise Drinks caffeinated beverages Onset of menses at age 11 Number of children 3 Impression: The patient has osteoporosis, based on the Left Femoral Neck T-score. The patient has risk factors, including: parental hip fracture, smoking. No significant bone loss was observed. Discussion: PATIENT UNDER TREATMENT WITH NO SIGNIFICANT BMD LOSS SINCE LAST EXAM. In an untreated patient, BMD typically declines with age. A lack of decline or gain is usua
--- NOTE | ~2023-09-07 | MM_ITS ---
EXAMINATION: MM screening sara BI w keiry HISTORY: Screening TECHNIQUE: Craniocaudal and mediolateral oblique 3-D tomosynthesis images were obtained and synthetic 2-D images were generated. CAD analysis was submitted and interpreted. COMPARISON: Comparison to multiple prior studies sequentially, with oldest reviewed study dated 03/20. BREAST PARENCHYMAL COMPOSITION: Not Dense: Breast are almost entirely fatty. FINDINGS: There is no evidence of suspicious mass, calcification, or architectural distortion to sugg est malignancy in either breast. There has been no suspicious interval change. IMPRESSION: 1. No mammographic evidence of malignancy. 2. Recommend routine screening mammography in one year. BI-RADS Category 1: Negative Reviewed, dictated and finalized at location A.
== END 2023-09-07 12:39 | disposition home or self-care (01) ==
LOC: ANHIMG 12:41
PROVIDERS: PCP Internal Medicine; Visit Provider Internal Medicine
DX: Z12.31 Encounter for screening mammogram for malignant neoplasm of breast (principal); Z78.0 Asymptomatic menopausal state; M85.88 Other specified disorders of bone density and structure, other site; M81.0 Age-related osteoporosis without current pathological fracture; M85.851 Other specified disorders of bone density and structure, right thigh
CPT/HCPCS: 77063; 77067; 77080

== ENCOUNTER 2023-09-29 13:26 | Outpatient (CLI) | payer MEDICARE, MEDICAID, SELFPAY ==
--- NOTE | 2023-09-29 13:41 | ECHO_ITS ---
Patient Info Name: Diamante Castro Age: 68 years : 1955 Gender: Female Ht: 63 in Wt: 178 lbs BSA: 1.92 m2 HR: 87 bpm BP: 178 / 106 mmHg Heart Rhythm: Sinus Rhythm Technical Quality: Fair Exam Date: 09/29/2023 1:56 PM Exam Location: Echo Lab Patient Status: Outpatient Admit Date: 09/29/2023 Staff Ordering Physician: Abdelrahman Melendrez APRN Fountain Operator: Dany Lou RDCS Attending Provider: Abdelrahman Melendrez APRN Referring Physician: Aneesh MENDOZA; Exam Type: CA echo doppler color flow Study Info Indications R60.9 - Edema, unspecified Complete two-dimensional, color flow and Doppler transthoracic echocardiogram is performed. Summary 1. Complete two-dimensional, color flow and Doppler transthoracic echocardiogram is performed. 2. Left ventricular chamber dimension is normal. 3. Left ventricular systolic function is normal, estimated at 60-65%. 4. The left ventricular diastolic function is grade I diastolic dysfunction. 5. Right ventricular systolic function is normal. 6. Left atrial chamber dimension is mildly enlarged. 7. There is mild mitral valve regurgitation. 8. There is mild tricuspid valve regurgitation. 9. Normal inferior vena cava with >50% collapse upon inspiration consistent with normal right atrial pressure, 3 mmHg. 10. There is small anterior pericardial effusion. Left Ventricle Left ventricular chamber dimension is normal. Left ventricular systolic function is normal, estimated at 60-65%. There is no increased left ventricular wall thickness. The left ventricular diastolic function is grade I diastolic dysfunction. Right Ventricle Right ventricular chamber dimension is normal. Right ventricular systolic function is normal. Left Atria Left atrial chamber dimension is mildly enlarged. Right Atria Right atrial chamber dimension is normal. Atrial Septum Intact interatrial septum visualized by color flow imaging. Aortic Valve The aortic valve is probable trileaflet. There is no aortic valve stenosis. There is no aortic valve regurgitation. There is mild aortic valve calcification. Pulmonic Valve The pulmonic valve is not well visualized. There is trace pulmonic regurgitation. Mitral Valve There is mild mitral valve regurgitation. The mitral valve annulus is mildly calcified. Tricuspid Valve There is mild tricuspid valve regurgitation. Pericardium/Pleural There is small anterior pericardial effusion. Inferior Vena Cava Normal inferior vena cava with >50% collapse upon inspiration consistent with normal right atrial pressure, 3 mmHg. Aorta The aortic root size at the sinus of Valsalva is normal. Left Ventricular Outflow Tract Name Value Normal LVOT 2D LVOT Diameter 1.9 cm LVOT Doppler LVOT Peak Gradient 5 mmHg LVOT Mean Gradient 3 mmHg LVOT VTI 24 cm LVOT VTI/AV VTI Ratio 0.8 LVOT Stroke Volume 69 ml LVOT CO 4.9 l/min LVOT CI 2.5 l/min/m2 Pulmonic Valve Name
== END 2023-09-29 13:27 | disposition home or self-care (01) ==
LOC: ANHCARD 13:28
PROVIDERS: PCP Internal Medicine; Visit Provider Nurse Practitioner Family
DX: R60.9 Edema, unspecified (principal); R06.09 Other forms of dyspnea; I34.0 Nonrheumatic mitral (valve) insufficiency; I36.1 Nonrheumatic tricuspid (valve) insufficiency
CPT/HCPCS: 93306

== ENCOUNTER 2024-05-14 09:43 | Outpatient (CLI) | payer MEDICARE, MEDICAID, SELFPAY ==
--- NOTE | 2024-05-14 09:55 | ECHO_ITS ---
Patient Info Name: Diamante Castro Age: 68 years : 1955 Gender: Female Ht: 64 in Wt: 171 lbs BSA: 1.90 m2 HR: 70 bpm Heart Rhythm: Sinus Rhythm Technical Quality: Good Exam Date: 05/14/2024 10:02 AM Exam Location: Echo Lab Patient Status: Outpatient Admit Date: 05/14/2024 Staff Ordering Physician: Alfonso Chun DO Agent Broker: Lauren Weinberg RDCS Attending Provider: Alfonso Chun DO Referring Physician: Adiel AUSTIN; Exam Type: CA echo doppler color flow Study Info Indications - palpatation, chest pain Complete two-dimensional, color flow and Doppler transthoracic echocardiogram is performed. Summary 1. Complete two-dimensional, color flow and Doppler transthoracic echocardiogram is performed. 2. Left ventricular chamber dimension is normal. 3. Left ventricular systolic function is normal, estimated at 60-65%. 4. The left ventricular diastolic function is grade I diastolic dysfunction. 5. E/e' 18 is elevated. 6. There is mild tricuspid valve regurgitation. 7. No pulmonary hypertension, estimated pulmonary arterial systolic pressure is 35 mmHg. Left Ventricle E/e' 18 is elevated. Left ventricular chamber dimension is normal. Left ventricular systolic function is normal, estimated at 60-65%. The left ventricular diastolic function is grade I diastolic dysfunction. Right Ventricle Right ventricular systolic function is normal and with normal TAPSE 3.5 cm. Right ventricular chamber dimension is normal. Left Atria Left atrial chamber dimension is normal. Right Atria Right atrial chamber dimension is normal. Aortic Valve The aortic valve is trileaflet. There is no aortic valve stenosis. There is no aortic valve regurgitation. Pulmonic Valve There is no pulmonic regurgitation. Mitral Valve There is no mitral valve stenosis. There is no mitral valve regurgitation. Tricuspid Valve There is mild tricuspid valve regurgitation. No pulmonary hypertension, estimated pulmonary arterial systolic pressure is 35 mmHg. Pericardium/Pleural There is no pericardial effusion. Inferior Vena Cava Normal inferior vena cava with >50% collapse upon inspiration consistent with normal right atrial pressure, 5 mmHg. Aorta The aortic root size at the sinus of Valsalva is normal. Left Ventricular Outflow Tract Name Value Normal LVOT 2D LVOT Diameter 1.9 cm LVOT Doppler LVOT Peak Gradient 5 mmHg LVOT Mean Gradient 3 mmHg LVOT VTI 24 cm LVOT VTI/AV VTI Ratio 0.8 LVOT Stroke Volume 70 ml LVOT CO 5.4 l/min LVOT CI 2.8 l/min/m2 Mitral Valve Name Value Normal MV Doppler MV Decel Holt 531 cm/s2 MV PHT 61 ms MV Area (PHT) 3.6 cm2 4.0-5.0 MV Diastolic Function MV E Peak Velocity 112 cm/s MV A Peak Velocity 132 cm/s MV E/A 0.8 MV Decel Time 210 ms MV Annular TDI MV E/e' (Septal) 17.3 <=8.0 MV E/e' (Lateral) 20.4 <=8.0 MV E/e' (Average) 18.9 Tricuspid Valve Name Value Normal TV Regurgitation Doppler TR Peak Velocity 273 cm/s TR Peak Gradient 10 mmHg Estimated PAP/RSVP RA Pressure 5 mmHg <=5 PA Systolic Pressure 35 mmHg <36 RV Systolic Pressure 35 mmHg <36 Aortic Valve Name Value Normal AV Doppler AV Peak Velocity 150 cm/s AV Peak Gradient 9 mmHg AV Mean Gradient 6 mmHg AV VTI 29 cm AV Area (Cont Eq VTI) 2.4 cm2 >=3.0 AV Area (Cont Eq Ryan) 2.2 cm2 AV Regurgitation 2D LVOT Area 2.9 cm2 Ventricles Name Value Normal LV Dimensions 2D/MM IVS Diastolic Thickness (2D) 1.0 cm 0.6-1.0 LVID Diastole (2D) 4.2 cm 3.8-5.2 LVIW Diastolic Thickness (2D) 1.0 cm 0.6-0.9 LVID Systole (2D) 2.9 cm 2.2-3.5 LVOT Diameter 1.9 cm LV Mass (2D Cubed) 130.17 g 67.00-162.00 LV Mass Index (2D Cubed) 69 g/m2 43-95 Relative Wall Thickness (2D) 0.47 LV Fractional Shortening/Ejection Fraction 2D/MM LV Fractional Shortening (2D) 30 % 27-45 LV EF (2D Teicholz) 58 % 54-74 LV Diastolic Volume (4C MOD) 52 ml LV EF (4C MOD) 67 % LV Diastolic Volume (2C MOD) 90 ml LV EF (2C MOD) 69 % LV Diastolic Volume (BP MOD) 72 ml 46-106 LV Diastolic Volume Index (BP MOD) 38 ml/m2 29-61 LV Systolic Volume (BP MOD) 22 ml 14-42 LV Systolic Volume Index (BP MOD) 12 ml/m2 8-24 LV EF (BP MOD) 70 % 54-74 LV Diastolic Length (4C) 6.7 cm LV Systolic Length (4C) 5.7 cm LV Stroke Volume (4C MOD) 35 ml Atria Name Value Normal LA Dimensions LA Volume (4C A-L) 32 ml LA Volume (BP A-L) 33 ml RA Dimensions RA Area (4C) 9.4 cm2 <=18.0 Report Signatures
== END 2024-05-14 09:44 | disposition home or self-care (01) ==
LOC: ANHCARD 09:43
PROVIDERS: PCP Internal Medicine; Visit Provider Internal Medicine Cardiovascular Disease
DX: I31.39 Other pericardial effusion (noninflammatory) (principal); I51.89 Other ill-defined heart diseases; I34.0 Nonrheumatic mitral (valve) insufficiency
CPT/HCPCS: 93306

== ENCOUNTER 2024-11-01 11:10 | Emergency (ER) | payer MEDICARE, MEDICAID, SELFPAY ==
[2024-11-01 11:22] VITALS: BP 146/68; PULSE 92; RESP 18; TEMP 36.2; O2SAT 97
[2024-11-01 11:33] LABS: EDUAAPPEAR Clear; EDUABILI Negative (Negative); EDUABLOOD Negative (Negative); EDUACOLOR1 Yellow; EDUAGLUCOSE Negative (Negative); EDUAKETONE Negative (Negative); EDUALEUKO Trace (Negative); EDUANITRATE Negative (Negative); EDUAPROTEIN Negative (Negative); EDUASPGRAVITY 1.015; EDUAUROBILI 0.2
--- NOTE | 2024-11-01 11:37 | ED_ITS ---
HPI - Female Genitourinary General Chief complaint: Urogenital-Female Stated complaint: UTI Time Seen by Provider: 11/01/24 11:10 Source: patient Mode of arrival: ambulatory Limitations: no limitations History of Present Illness HPI Narrative: Patient is a 69-year-old female who presents with 12 hours of urinary urgency, frequency and pressure. Patient reports burning with urination only as start and stop of stream. Patient has been taking Cystex. Last UTI was roughly 2 years ago. Denies any fever, chills, nausea, vomiting, diarrhea, low back pain, blood in urine. MD elicited complaint: dysuria Related Data Home Medications Medication Instructions Recorded Confirmed Last Taken Type aspirin 81 mg tablet,delayed 81 mg PO DAILY 05/09/19 06/28/24 Unknown History release (Adult Low Dose Aspirin) atorvastatin 20 mg tablet 20 mg PO DAILY 05/09/19 06/28/24 Unknown History bupropion HCl 100 mg tablet 100 mg PO BID 05/09/19 06/28/24 Unknown History cetirizine 10 mg tablet (Zyrtec) 5 mg PO DAILY PRN 05/09/19 06/28/24 Unknown History citalopram 40 mg tablet 20 mg PO DAILY 05/09/19 06/28/24 Unknown History levothyroxine 112 mcg tablet 112 mcg PO DAILY 05/09/19 06/28/24 Unknown History omeprazole magnesium 20 mg 20 mg PO DAILY 05/09/19 06/28/24 Unknown History capsule,delayed release tolterodine 4 mg capsule,extended 4 mg PO DAILY 05/09/19 06/28/24 Unknown History release 24 hr pramipexole 1 mg tablet 1 mg PO TID 07/13/21 06/28/24 Unknown History trazodone 100 mg tablet 100 mg PO QHS PRN 07/13/21 06/28/24 Unknown History alendronate 70 mg tablet mg PO 02/02/23 06/28/24 Unknown History lisinopril 20 mg tablet 40 mg PO DAILY 09/14/23 06/28/24 Unknown History amlodipine 5 mg tablet 5 mg PO DAILY 03/15/24 06/28/24 Unknown History buspirone 10 mg tablet 10 mg PO BID 03/15/24 06/28/24 Unknown History Allergies Allergy/AdvReac Type Severity Reaction Status Date / Time albuterol Allergy Mild Palpitation Verified 11/01/24 11:20 s Review of Systems Review of Systems: All systems reviewed & are unremarkable except as noted in HPI and below Constitutional: Constitutional: Denies chills, Denies fever(s), Denies headache(s), Denies malaise and Denies weakness Eyes: Eyes: Denies change in vision, Denies eye discharge and Denies irritation ENT: Denies otalgia, Denies headache(s), Denies nasal congestion, Denies nasal discharge, Denies sinus pain and Denies sore throat Cardiovascular: Cardiovascular: Denies chest pain, Denies edema, Denies palpitations and Denies dyspnea Respiratory: Respiratory: Denies cough and Denies dyspnea Gastrointestinal: Gastrointestinal: Denies abdominal pain, Denies diarrhea, Denies nausea and Denies vomiting Genitourinary: Genitourinary: Denies hematuria, Reports nocturia, Reports dysuria, Denies flank pain and Reports urinary urgency Musculoskeletal: Musculoskeletal: Denies back pain and Denies numbness Integumentary/Breasts: Skin/Breast: Denies pruritus and Denies rash Neurologic: Denies headache(s), Denies numbness and Denies weakness Psychiatric: Psychiatric: Reports no additional psychiatric complaints Endocrine: Endocrine: Denies palpitations PMFSH Surgical History Surgical History Bladder polyps Tonsillectomy planned Family History Family History Sibling Hypertension Grandparent Hypertension Mother Hypertension Father Hypertension Asthma Daughter Brain injury Malignant neoplastic disease Social History Social History Smoking packs per day: 2 Smoking cigarettes per day: 40.0 Years smoked: 33 Smoking pack-years: 66.00 Smoking status: Former smoker Tobacco type: cigarettes Smoking end date: 06/20/05 Alcohol intake: current Comments At time of signature, agree with nursing past medical, surgical, social and family history. There is no relevant family history pertinent to the presenting complaint. Exam Const: General: cooperative, healthy appearing, comfortable, no acute distress and well nourished Nutritional Appearance: well nourished Orientation/consciousness: patient oriented x3 HENMT: Head: normocephalic and atraumatic Ears: external ears normal Face/Nose/Sinus: Normal external nose present, Normal nares present and normal facial exam Face and sinus: normal facial exam Eyes: General: appearance normal, both eyes and all related structures Pupils: Equal, round and reactive pupils present EOM: EOMs intact bilaterally Neck: Neck: normal visual inspection, full ROM and supple Chest: Chest palpation & inspection: normal inspection of the chest Resp: Effort & Inspection: normal respiratory effort and able to speak in complete sentences Cardio: Rate: regular rate Rhythm: regular rhythm GI: Inspection: normal to inspection GI Palp: No abdominal tenderness and Yes Soft to palpation : General: Yes no CVA tenderness Back/Spine/Pelvis: Back: no CVA tenderness Skin: General skin exam: normal color and no rashes or lesions noted Neuro: General: patient oriented x3 and moves all extremities Cranial nerves: Yes Equal, round and reactive pupils present Extrem: General: normal to inspection and full ROM Psych: Appearance: grossly normal and well kempt Course Course Emergency Course: Patient is aware of diagnosis, understands and agrees to treatment plan. Anticipatory guidance given. Patient agrees to follow-up as directed and is aware of reasons to seek care at the emergency department. Portions of this record may have been created with voice recognition software Level of Care: Express Care Visit Vital Signs Vital signs: Vital Signs Temperature 36.2 C L 11/01/24 11:22 Pulse Rate 92 11/01/24 11:22 Respiratory Rate 18 11/01/24 11:22 Blood Pressure 146/68 H 11/01/24 11:22 Pulse Oximetry 97 11/01/24 11:22 Oxygen Delivery Nasal Cannula 11/01/24 11:22 Oxygen Flow Rate 11/01/24 11:22 Temperature 36.2 C L 11/01/24 11:22 Pulse Rate 92 11/01/24 11:22 Respiratory Rate 18 11/01/24 11:22 Blood Pressure 146/68 H 11/01/24 11:22 Pulse Oximetry 97 11/01/24 11:22 Oxygen Delivery Nasal Cannula 11/01/24 11:22 Oxygen Flow Rate 11/01/24 11:22 Reviewed MDM - Female Genitourinary MDM Narrative Medical decision making narrative: Exam findings and UA show probable UTI; patient is non-toxic appearing and is in no distress. Patient and son is adamant on needing antibiotic today despite having no nitrates. Patient has taken [id number] medication which may have altered results No CMT, adnexal tenderness, or evidence of pelvic etiology. Patient is appropriate for outpatient treatment and follow-up. Differential Diagnosis Differential diagnosis: Likely urinary tract infection, bacterial vaginosis, trichomoniasis, cervicitis, vaginitis and cystitis Medical Records Attestation: I reviewed the patient's medical records. Lab Data Attestation: I reviewed the patient's lab results. Labs: Lab Results 11/01/24 Range/Units 11:23 POC Urine Color Yellow POC Urine Clarity Clear POC Urine pH 7.0 POC Ur Specif [place] 1.015 POC Urine Protein Negative (Negative) POC Ur Glucose (UA) Negative (Negative) POC Urine Ketones Negative (Negative) POC Urine Blood Negative (Negative) POC Urine Nitrite Negative (Negative) POC Urine Bilirubin Negative (Negative) POC Urine Urobilinogen 0.2 POC U Leukocyte Esteras Trace (Negative) Discharge Plan Discharge Clinical Impression: Urinary tract infection Qualifiers: Urinary tract infection type: acute cystitis Hematuria presence: without hematuria Qualified Code(s): N30.00 - Acute cystitis without hematuria Patient Disposition: Home Condition: Stable Instructions: Urinary Tract Infection in Older Adults (ED) Additional Instructions: We will send a urine culture to the lab, based on your symptoms and urine dip we will start treatment today. If culture comes back and bacteria is not susceptible to antibiotic, your prescription may change. Your symptoms should improve within a day of starting antibiotics, but you should finish all the antibiotic pills you get. Otherwise your infection might come back Continue with increased water intake. Take Tylenol or ibuprofen as needed for pain or fever. Follow-up with primary care provider for urine recheck or see ER visit if condition worsens with high fever, nausea, vomiting, severe back pain Your blood pressure was elevated above 120/80 today at Urgent Care. This puts you above the threshold for follow up visit with a primary care provider. High blood pressure does not usually cause any symptoms, however it may lead to kidney failure, stroke, heart disease just to name a few if untreated . Many people are anxious when seeing a provider or nurse. As a result, you are not diagnosed with hypertension at this time unless your blood pressure is persistently high at two office visits at least one week apart. Some things that can help lower blood pressure are lifestyle modifications, such as light exercise, decreased salt in diet, and weight loss. It is important to follow up with a PCP about this within 1 week. Patient Language: Welsh Prescriptions: New cephalexin 500 mg capsule 500 mg PO Q12H 5 Days Qty: 10 0RF No Action lisinopril 20 mg tablet 40 mg PO DAILY amlodipine 5 mg tablet 5 mg PO DAILY buspirone 10 mg tablet 10 mg PO BID atorvastatin 20 mg tablet 20 mg PO DAILY cetirizine [Zyrtec] 10 mg tablet 5 mg PO DAILY PRN tolterodine 4 mg capsule,extended release 24hr 4 mg PO DAILY levothyroxine 112 mcg tablet 112 mcg PO DAILY omeprazole magnesium 20 mg capsule,delayed release(DR/EC) 20 mg PO DAILY citalopram 40 mg tablet 20 mg PO DAILY bupropion HCl 100 mg tablet 100 mg PO BID aspirin [Adult Low Dose Aspirin] 81 mg tablet,delayed release (DR/EC) 81 mg PO DAILY pramipexole 1 mg tablet 1 mg PO TID trazodone 100 mg tablet 100 mg PO QHS PRN alendronate 70 mg tablet PO levalbuterol HCl 1.25 mg/3 mL solution for nebulization See Rx Instructions .ROUTE .COMPLEX Qty: 270 5RF Dose Instruction: USE 1.25MG(3 ML) INHALATION THREE TIMES DAILY NEEDED FOR SHORTNESS OF BREATH OR WHEEZING Rx Instructions: USE 1.25MG(3 ML) INHALATION THREE TIMES DAILY NEEDED FOR SHORTNESS OF BREATH OR WHEEZING budesonide 0.25 mg/2 mL suspension for nebulization 0.25 mg inhalation BID Qty: 120 11RF Rx Instructions: rinse and spit azelastine 137 mcg (0.1 %) spray,non-aerosol 1 spray intranasal Q12H Qty: 30 5RF Rx Instructions: administer into each nostril fluticasone propionate 50 mcg/actuation spray,suspension See Rx Instructions .ROUTE .COMPLEX Qty: 16 11RF Dose Instruction: USE ONE SPRAY IN EACH NOSTRIL TWICE DAILY FOR 30 DAYS Rx Instructions: USE ONE SPRAY IN EACH NOSTRIL TWICE DAILY FOR 30 DAYS roflumilast 500 mcg tablet See Rx Instructions .ROUTE .COMPLEX Qty: 30 11RF Dose Instruction: TAKE 1 TABLET BY MOUTH DAILY Rx Instructions: TAKE 1 TABLET BY MOUTH DAILY arformoterol [Brovana] 15 mcg/2 mL solution for nebulization 2 ml inhalation BID Qty: 120 11RF Yupelri 175 mcg/3 mL solution for nebulization 175 mcg inhalation DAILY Qty: 90 11RF zafirlukast 20 mg tablet See Rx Instructions .ROUTE .COMPLEX Qty: 60 5RF Dose Instruction: TAKE 1 TABLET BY MOUTH EVERY 12 HOURS. WAIT 1 TO 2 HOURS AFTER FOOD Rx Instructions: TAKE 1 TABLET BY MOUTH EVERY 12 HOURS. WAIT 1 TO 2 HOURS AFTER FOOD revefenacin 175 mcg/3 mL solution for nebulization 175 mcg/3 mL solution for nebulization 0RF Follow-up/Referrals: Lisa,Naldo Callahan MD [Primary Care Provider] - 3 Days Time of Disposition: 12:13
== END 2024-11-01 12:20 | disposition home or self-care (01) ==
PROVIDERS: Emergency Provider Nurse Practitioner Family; PCP Internal Medicine
DX: N30.00 Acute cystitis without hematuria (principal); Z87.891 Personal history of nicotine dependence
CPT/HCPCS: 81003; 87077; 87086; 87186; 99213; G0463

== ENCOUNTER 2024-11-11 13:24 | Emergency (ER) | payer MEDICARE, MEDICAID, SELFPAY ==
[2024-11-11 13:25] VITALS: BP 124/65; PULSE 92; RESP 16; O2SAT 99
--- OUTSIDE RECORDS SUMMARY | 2024-11-11 13:26 | XMS_ITS | Data Portability ---
Author Organization [facility], Main Office Address [address] [place] [address] Care Team Providers Care Conveyor Tender [employer] Name Role Phone NOLAN GONZALEZ Internal Medicine ADRIAN ALBRIGHT Balancer NISA LUNA Excel Developer LISSETTE LARSEN Learning Services Coordinator Assessment No assessment recorded. Plan of Treatment Reminders Order Date Submit Date Provider Last Modified By Organization Details Last Modified Time Details Appointments Any 15 2024 10:15A M Nolan Gonzalez MD Not available Not available Not available Lab None recorded. Referral None recorded. Procedures None recorded. Surgeries None recorded. Imaging None recorded. Medication Orders amlodipin e 5 mg tablet 2023 024 [id number], [address] [facility], [place], [place], [id number], 01/25/2024 15:12:22 Patient Targets Encounter Date Encounter Id Patient Goals Patient Target Last Modified By Organization Details Last Modified Time Pt will check her BP same time every day relaxed in chair and keep a log of results to relay to care team.Pt will look up Chair [employer] to get some exercise due to limited mobility/MEDICAID SPECIALIST DWill get some [place] Dry Mouth [place] to help w/ dry mouth as she has limited fluid intake Not available 11/22/2023 12:24:55 New glasses on Not available 01/25/2024 15:33:02 Patient Instructions Encounter Date Encounter Id Patient Instructions Last Modified By Organization Details Last Modified Time 11/22/2023 [id number] Review of meds, when to take, Not available 11/22/2023 12:25:13 See above, reminded of next appt date/time Not available 11/22/2023 12:25:36 01/25/2024 [id number] Review of meds and when to take them Not available 01/25/2024 15:33:11 Reason for Referral None Reported. Results Created Date Observation Date Name Description Value Unit Range Abnormal Flag Note LastModifiedBy Organization Detail LastModifiedTime 11/16/19 24 11/16/2023 CBC/C OMPLE TE BLD COUNT W/DIF F white blood cells 10.6 x10'3 /uL 4.2-10 .8 Not Available [facility] (Lab) [address] [place], [address], 11/16/2023 20:31:24 11/16/19 24 11/16/2023 CBC/C OMPLE TE BLD COUNT W/DIF F red blood cells 4.61 x10'6 /uL 3.80-5 .20 Not Available [facility] (Lab) [address] [place], [address], 11/16/2023 20:31:24 11/16/19 24 11/16/2023 CBC/C OMPLE TE BLD COUNT W/DIF F hemoglobin 10.6 g/dL 12.0-1 5.6 low Not Available [facility] (Lab) [address] [place], [address], 11/16/2023 20:31:24 11/16/19 24 11/16/2023 CBC/C OMPLE TE BLD COUNT W/DIF F hematocrit 36.4 % 35.7-4 5.7 Not Available [facility] (Lab) [address] [place], [address], 11/16/2023 20:31:24 11/16/19 24 11/16/2023 CBC/C OMPLE TE BLD COUNT W/DIF F mean red cell volume 79.0 fL 82.0-9 9.0 low Not Available [facility] (Lab) [address] [place], [address], 11/16/2023 20:31:24 11/16/19 24 11/16/2023 CBC/C OMPLE TE BLD COUNT W/DIF F mean red cell hemoglobin 23.0 pg 27.0-3 3.0 low Not Available [facility] [address] [facility] [place], [address], 11/16/2023 20:31:24 11/16/19 24 11/16/2023 CBC/C OMPLE TE BLD COUNT W/DIF F mean RBC HGB concentratio n 29.1 g/dL 31.0-3 6.0 low Not Available [facility] (Lab) [address] [place], [address], 11/16/2023 20:31:24 11/16/19 24 11/16/2023 CBC/C OMPLE TE BLD COUNT W/DIF F red cell distribution width 16.3 % 11.8-1 5.5 high Not Available [facility] (Lab) [address] [place], [address], 11/16/2023 20:31:24 11/16/19 24 11/16/2023 CBC/C OMPLE TE BLD COUNT W/DIF F platelets 397 x10'3 /uL 150-40 0 Not Available [facility] (Lab) [address] [place], [address], 11/16/2023 20:31:24 11/16/19 24 11/16/2023 CBC/C OMPLE TE BLD COUNT W/DIF F mean platelet volume 10.6 fL 9.0-12 .4 Not Available [facility] (Lab) [address] [place], [address], 11/16/2023 20:31:24 11/16/19 24 11/16/2023 CBC/C OMPLE TE BLD COUNT W/DIF F neutrophils 73.6 % 39.0-7 2.0 high Not Available [facility] (Lab) [address] [place], [address], 11/16/2023 20:31:24 11/16/19 24 11/16/2023 CBC/C OMPLE TE BLD COUNT W/DIF F lymphocytes 17.9 % 16.0-4 7.0 Not Available [facility] (Lab) [address] [place], [address], 11/16/2023 20:31:24 11/16/19 24 11/16/2023 CBC/C OMPLE TE BLD COUNT W/DIF F monocytes 5.1 % 5.0-12 .0 Not Available [facility] (Lab) [address] [place], [address], 11/16/2023 20:31:24 11/16/19 24 11/16/2023 CBC/C OMPLE TE BLD COUNT W/DIF F eosinophils 2.3 % 1.0-7. 0 Not Available [facility] (Lab) [address] [place], [address], 11/16/2023 20:31:24 11/16/19 24 11/16/2023 CBC/C OMPLE TE BLD COUNT W/DIF F basophils 0.8 % 0.0-2. 0 Not Available [facility] (Lab) [address] [place], [address], 11/16/2023 20:31:24 11/16/19 24 11/16/2023 CBC/C OMPLE TE BLD COUNT W/DIF F immature granulocytes 0.3 % 0.00-0 .50 Not Available [facility] (Lab) [address] [place], [address], 11/16/2023 20:31:24 11/16/19 24 11/16/2023 CBC/C OMPLE TE BLD COUNT W/DIF F neutrophils, absolute count 7.77 x10'3 /uL 1.5-8. 0 Not Available [facility]Lab[facility] [address] [facility] [place], [address], 11/16/2023 20:31:24 11/16/19 24 11/16/2023 CBC/C OMPLE TE BLD COUNT W/DIF F lymphocytes, absolute count 1.89 x10'3 /uL 1.07-3 .43 Not Available [facility] (Lab) [address] [place], [address], 11/16/2023 20:31:24 11/16/19 24 11/16/2023 CBC/C OMPLE TE BLD COUNT W/DIF F monocytes, absolute count 0.54 x10'3 /uL 0.29-0 .99 Not Available [facility] (Lab) [address] [place], [address], 11/16/2023 20:31:24 11/16/19 24 11/16/2023 CBC/C OMPLE TE BLD COUNT W/DIF F eosinophils, absolute count 0.24 x10'3 /uL 0.02-0 .53 Not Available [facility] (Lab) [address] [place], [address], 11/16/2023 20:31:24 11/16/19 24 11/16/2023 CBC/C OMPLE TE BLD COUNT W/DIF F basophils, absolute count 0.08 x10'3 /uL 0.01-0 .08 Not Available [facility] (Lab) [address] [place], [address], 11/16/2023 20:31:24 11/16/19 24 11/16/2023 CBC/C OMPLE TE BLD COUNT W/DIF F immature granulocytes ,absolute 0.03 x10'3 /uL 0.00-0 .05 Not Available [facility] (Lab) [address] [place], [address], 11/16/2023 20:31:24 11/16/19 24 11/16/2023 CBC/C OMPLE TE BLD COUNT W/DIF F nucleated red blood cells 0.0 % -0 Not Available [facility] (Lab) [address] [place], [address], 11/16/2023 20:31:24 11/16/19 24 11/16/2023 CBC/C OMPLE TE BLD COUNT W/DIF F NRBC# 0.00 x10'3 /uL Not Available [facility] (Lab) [address] [place], [address], 11/16/2023 20:31:24 11/16/19 24 11/16/2023 CBC/C OMPLE TE BLD COUNT W/DIF F anisocytosis OCCASI ONAL Not Available [facility] (Lab) [address] [place], [address], 11/16/2023 20:31:24 11/16/19 24 11/16/2023 CBC/C OMPLE TE BLD COUNT W/DIF F hypochromia OCCASI ONAL Not Available [facility] (Lab) [address] [place], [address], 11/16/2023 20:31:24 11/16/19 24 11/16/2023 CBC/C OMPLE TE BLD COUNT W/DIF F microcytosis OCCASI ONAL Not Available [facility] (Lab) [address] [place], [address], 11/16/2023 20:31:24 11/16/19 24 11/16/2023 CBC/C OMPLE TE BLD COUNT W/DIF F polychromato philic RBCs OCCASI ONAL Not Available [facility] (Lab) [address] [place], [address], 11/16/2023 20:31:24 11/16/19 24 11/16/2023 COMPR EHENS TRISTON METAB OLIC PANEL sodium 137 mmol/ L 137-14 5 Not Available [facility] (Lab) [address] [place], [address], 11/16/2023 21:24:16 11/16/19 24 11/16/2023 COMPR EHENS TRISTON METAB OLIC PANEL potassium 4.3 mmol/ L 3.5-5. 1 Not Available [facility] (Lab) [address] [place], [address], 11/16/2023 21:24:16 11/16/19 24 11/16/2023 COMPR EHENS TRISTON METAB OLIC PANEL chloride 104 mmol/ L 98-107 Not Available [facility] (Lab) [address] [place], [address], 11/16/2023 21:24:16 11/16/19 24 11/16/2023 COMPR EHENS TRISTON METAB OLIC PANEL carbon dioxide 28 mmol/ L 22-30 Not Available [facility] (Lab) [address] [place], [address], 11/16/2023 21:24:16 11/16/19 24 11/16/2023 COMPR EHENS TRISTON METAB OLIC PANEL anion gap 9.3 mmol/ L 14-22 low Not Available [facility] (Lab) [address] [place], [address], 11/16/2023 21:24:16 11/16/19 24 11/16/2023 COMPR EHENS TRISTON METAB OLIC PANEL glucose 97 mg/dL 70-99 Not Available [facility] (Lab) [address] [place], [address], 11/16/2023 21:24:16 11/16/19 24 11/16/2023 COMPR EHENS TRISTON METAB OLIC PANEL BUN 13 mg/dL 8-19 Not Available [facility] (Lab) [address] [place], [address], 11/16/2023 21:24:16 11/16/19 24 11/16/2023 COMPR EHENS TRISTON METAB OLIC PANEL creatinine 0.84 mg/dL 0.66-1 .25 Not Available [facility] (Lab) [address] [place], [address], 11/16/2023 21:24:16 11/16/19 24 11/16/2023 COMPR EHENS TRISTON METAB OLIC PANEL GFR >60 Refer ence Range : [place] [facility] GFR Healt hy Adult : >60 mL/mi n/1.7 3 m2 Chron ic Kidne y Disea se: 15-60 mL/mi n/1.7 3 m2 Kidne y Failu re: <15/m L/min /1.73 m2 www.n iddk. nih.g ov The MDRD study equat ion has not been valid ated in child lluvia <18 years of age; pregn ant women ; the elder ly >85 years of age; or in some racia l or ethni c subgr oups, such as Hisne nics. Outsi de the valid ated yrn eters , estim ated GFR is less accur ate, requi ring clini yusuf judgm ent on a case- by-ca se basis . Clini yusuf inter preta tion for other races and ages must be made by the clini wallace. The MDRD study equat ion has not been valid ated for the evalu ation of serum creat inine relat ed to nutri khang l statu s or medic ation usage . For perso ns <18 years of age, a pedia tric GFR calcu lator is avail able on the [facility] websi te: https ://angie w.donovan hernandez.o rg/pr ofess ional s/kdo qi/gf r_cal culat or Not Available [facility] (Lab) [address] [place], [address], 11/16/2023 21:24:16 11/16/19 24 11/16/2023 COMPR EHENS TRISTON METAB OLIC PANEL alkaline phosphatase 123 U/L 38-126 Not Available [facility] (Lab) [address] [place], [address], 11/16/2023 21:24:16 11/16/19 24 11/16/2023 COMPR EHENS TRISTON METAB OLIC PANEL alanine aminotransfe rase 19 U/L 0-35 Not Available [facility] (Lab) [address] [place], [address], 11/16/2023 21:24:16 11/16/19 24 11/16/2023 COMPR EHENS TRISTON METAB OLIC PANEL aspartate aminotransfe rase 28 U/L 15-37 Not Available [facility] (Lab) [address] [place], [address], 11/16/2023 21:24:16 11/16/19 24 11/16/2023 COMPR EHENS TRISTON METAB OLIC PANEL bilirubin, total 0.60 mg/dL 0.20-1 .30 Not Available [facility] (Lab) [address] [place], [address], 11/16/2023 21:24:16 11/16/19 24 11/16/2023 COMPR EHENS TRISTON METAB OLIC PANEL calcium 10.1 mg/dL 8.4-10 .2 Not Available [facility] (Lab) [address] [place], [address], 11/16/2023 21:24:16 11/16/19 24 11/16/2023 COMPR EHENS TRISTON METAB OLIC PANEL total protein 7.2 g/dL 6.3-8. 2 Not Available [facility] (Lab) [address] [place], [address], 11/16/2023 21:24:16 11/16/19 24 11/16/2023 COMPR EHENS TRISTON METAB OLIC PANEL albumin 4.3 g/dL 3.0-4. 4 Not Available [facility] (Lab) [address] [place], [address], 11/16/2023 21:24:16 11/16/19 24 11/16/2023 COMPR EHENS TRISTON METAB OLIC PANEL globulin 2.9 g/dL 2.6-4. 2 Not Available [facility] (Lab) [address] [place], [address], 11/16/2023 21:24:16 11/16/19 24 11/16/2023 COMPR EHENS TRISTON METAB OLIC PANEL A/G ratio 1.5 ratio 1.0-2. 0 Not Available [facility] (Lab) [address] [place], [address], 11/16/2023 21:24:16 11/16/19 24 11/16/2023 VITAM IN D 25-HY DROXY vd25oh 26.8 NG/mL 30-100 low Vitam in D Statu s: Defic ient: <20 ng/mL Insuf ficie nt: 20-29 ng/mL Suffi cient : 30-10 0 ng/mL Not Available [facility] (Lab) [address] [place], [address], 11/16/2023 21:43:40 06/01/20 24 05/14/2024 , echo ardio gram No observ ation record ed. BARCODE Not Available 2023 18:19:51 Result Notes None recorded. Problems Name Problem SNOMED Code Status Onset Date Resolution Date Notes Provider Name and Address Organization Details Recorded Time Hearing loss 90066796 Active 2022 Nolan Gonzalez MD [address] [facility], [place], [address] , [place] [employer] 3 13:12:10 Essential hypertensi on 21228835 Active 2023 ANDERSON Castellano null, [employer] 5 07:56:29 Benign essential hypertensi on 4869147 Active Not Available [employer] 3 04:47:56 Chronic obstructiv e pulmonary disease 08827813 Active Not Available [facility] 3 04:47:56 History of transient ischemic attack 462174126 Active Not Available [facility] 3 04:47:56 Insomnia 825353038 Active 2021 Not Available [facility] 3 04:47:56 Acute exacerbati on of chronic obstructiv e pulmonary disease 260794259 Completed Not Available [facility] 3 04:47:56 Genuine stress incontinen ce 91837866 Completed Not Available [facility] 3 04:47:56 Screening mammograph y Completed 202101/08/2022 Not Available [facility] 3 04:47:56 Urinary symptoms 647756332 Completed 202106/16/2022 Not Available [facility] 3 04:47:57 Adult health examinatio n Active 2021 Nolan Gonzalez MD [address] [place] [address], [address] , [employer] 3 13:12:05 Eruption 826597803 Completed Not Available [facility] 3 04:47:57 Finding of body mass index 657948425 Completed 202106/16/2022 Not Available [facility] 3 04:47:57 Hypertrigl yceridemia 857045251 Active 2022 Becki tracey, Russ null, [employer] 3 07:58:49 Screening for disorder Completed 202101/08/2022 Not Available [facility] 3 04:47:57 Restless legs 87988844 Active Not Available [facility] 3 04:47:57 Vitamin D deficiency 77171525 Active Not Available [facility] 3 04:47:57 Depressive disorder 63968102 Active 2019 Not Available [facility] 3 04:47:57 Osteoarthr itis 833466220 Active 2019 Not Available [facility] 3 04:47:57 Hypothyroi dism 27903258 Active Not Available [facility] 3 04:47:57 Obesity 985296378 Active Not Available [facility] 3 04:47:58 Solitary nodule of lung 182842763 Active 2018 Not Available [facility] 3 04:47:58 Acute urinary tract infection 363679976 Completed 202106/16/2022 Not Available [facility] 3 04:47:58 Anxiety 41988484 Active Not Available [facility] 3 04:47:58 Hyperlipid emia 28993835 Active Not Available [facility] 3 04:47:58 Osteoporos is 73864348 Active 2018 Not Available [facility] 3 04:47:58 Sleep apnea 87101190 Active 2019 Not Available [facility] 3 04:47:58 Administra tion of influenza vaccine Completed 202101/08/2022 Not Available [facility] 3 04:47:58 Reactive depression (situation al) 58152522 Active Not Available [facility] 3 04:47:58 Problem Notes None recorded. Procedures Surgical History Date Name Laterality Status Provider Name and Address Organization Details Recorded Time 4 Chronic care management services completed JB Louie Yogesh [employer] [facility] 01/25/2024 15:42:31 4 Chronic care management services completed JB Louie Yogesh [employer] [facility] 12/27/2023 13:59:32 4 Chronic care management services completed JB Louie Yogesh [employer] [facility] 11/22/2023 12:22:25 4 Chronic care management services completed JB Louie Yogesh [place] [employer] [facility] 11/17/2023 12:04:02 4 Medicare Wellness CPT Code, subsequent completed JB Negrete Yogesh [place] [employer] [facility] 11/16/2023 12:47:26 4 Advanced Care Planning completed Tracey Khan RN [facility] [employer] 11/16/2023 12:51:06 4 Chronic care management services completed ROSALINE Godoy [address] [facility], [place], [address], [place] [facility] [employer] 11/10/2023 14:33:57 4 Cataract surg w/iol 1 stage completed Lissette Larsen RN [facility] [employer] 11/22/2023 11:58:56 Most Recent Bone Density completed Not Available [facility] 08/18/2022 04:41:46 Tubal Ligation completed Not Available [facility] 08/18/2022 04:41:48 Bladder completed Not Available [facility] 06/2022 04:41:48 Cataract surg w/iol 1 stage completed Lissette Larsen RN [facility] [employer] 11/22/2023 11:59:22 Imaging Results Imaging Date Name Status LastModified by Organization Details LastModified Time 05/14/2024 US, echocardiogram completed [facility] Inform ation not available 06/01/2024 18:19:51 Procedure Notes None recorded. Medical Equipment None Reported. Allergies Allergen ID Allergen Name Allergen Category Reaction Reaction Severity Criticality Documentation Date Start Date Code Code System Note Provider Name and Address Organization Details Recorded Time 7065 albuterol medicatio n Not available Not available Not available 08/18/2022 435 RxNorm PALPI TATIO NS Not Available [facility] 3 04:55:32 Medications Name Sig Start Date Stop Date Status Note LastModified by Organization Details LastModified Time pramipexo le 1 mg tablet TAKE 1 TABLET BY MOUTH EVERY 8 HOURS active Not Available Not Available No t Available prednison e 10 mg tablet predniso ne taper 11/16 completed Not Available Not Available Not Available doxycycli ne hyclate 100 mg capsule TAKE 1 CAPSULE BY MOUTH TWICE DAILY FOR 5 DAYS 11/16 completed Not Available Not Available Not Available atorvasta tin 20 mg tablet TAKE 1 TABLET BY MOUTH EVERY DAY active Not Available Not Available No t Available ropinirol e 1 mg tablet TAKE 1 TABLET BY MOUTH EVERY DAY active Not Available Not Available No t Available ipratropi um 0.5 mg-albute rol 3 mg (2.5 mg base)/3 mL nebulizat ion soln NEBULIZE 1 VIAL QID BY NEBULIZE R PRN 06/22 completed Not Available Not Available Not Available citalopra m 40 mg tablet TAKE 1 TABLET BY MOUTH EVERY DAY 2024 active SAMANTHA 04/12/24 NOV 12/06/24 ok to rf Not Available Not Available Not Available benzonata te 200 mg capsule TAKE 1 CAPSULE BY MOUTH THREE TIMES DAILY NEEDED FOR COUGH 08/11 completed Not Available Not Available Not Available tolterodi ne ER 4 mg capsule,e xtended release 24 hr TAKE 1 CAPSULE BY MOUTH EVERY DAY active Not Available Not Available No t Available lisinopri l 20 mg tablet TAKE 1 TABLET BY MOUTH TWICE DAILY 2024 active SAMANTHA 04/12/24 NOV 12/06/24 ok to rf Not Available Not Available Not Available alendrona te 70 mg tablet TAKE 1 TABLET BY MOUTH 1 TIME A WEEK DIRECTED 2024 active SAMANTHA 04/12/24 NOV 12/06/24 ok to rf Not Available Not Available Not Available Pyridium 200 mg tablet Take 1 tablet 3 times a day by oral route as needed for 2 days. 11/18 completed Not Available Not Available Not Available ciproflox acin 250 mg tablet TAKE 1 TABLET BY MOUTH TWICE DAILY FOR 5 DAYS active Not Available Not Available No t Available amlodipin e 5 mg tablet TAKE 1 TABLET BY MOUTH EVERY DAY 2024 active SAMANTHA 04/12/24 NOV 12/06/24 ok to rf Not Available Not Available Not Available ciproflox acin 500 mg tablet TAKE 1 TABLET BY MOUTH TWICE DAILY FOR 7 DAYS 11/16 completed Not Available Not Available Not Available triamcino lone acetonide 0.1 % topical cream APPLY A THIN LAYER TO THE AFFECTED AREA(S) TWICE DAILY active Not Available Not Available No t Available bupropion HCl SR 100 mg tablet,12 hr sustained -release TAKE 1 TABLET BY MOUTH TWICE DAILY active Not Available Not Available No t Available levothyro xine 100 mcg tablet TAKE 1 TABLET BY MOUTH EVERY DAY active Not Available Not Available No t Available levothyro xine 88 mcg tablet TAKE 1 TABLET BY MOUTH ONCE DAILY active Not Available Not Available No t Available citalopra m 20 mg tablet active Not Available Not Available Not Available trazodone 100 mg tablet TAKE 1 TABLET BY MOUTH EVERY DAY AT BEDTIME 2024 active SAMANTHA 04/12/25 NOV 12/06/24 ok to rf Not Available Not Available Not Available ropinirol e 2 mg tablet TAKE 1 TABLET BY MOUTH EVERY DAY AT BEDTIME active Not Available Not Available No t Available cephalexi n 500 mg capsule TAKE 1 CAPSULE BY MOUTH EVERY 8 HOURS FOR 7 DAYS 11/16 completed Not Available Not Available Not Available buspirone 10 mg tablet TAKE 1 TABLET BY MOUTH TWICE DAILY 2024 active SAMANTHA 04/12/24 NOV 11/01/24 ok to rf Not Available Not Available Not Available Advair Diskus 250 mcg-50 mcg/dose powder for inhalatio n INHALE ONE PUFF BY MOUTH TWICE DAILY 11/12 completed Not Available Not Available Not Available Advair Diskus 500 mcg-50 mcg/dose powder for inhalatio n USE 1 INHALATI ON BY MOUTH TWICE DAILY 02/07 completed Not Available Not Available Not Available zafirluka st 20 mg tablet TAKE 1 TABLET BY MOUTH EVERY 12 HOURS. WAIT 1 TO 2 HOURS AFTER FOOD active Not Available Not Available No t Available budesonid e 0.25 mg/2 mL suspensio n for nebulizat ion INHALE THE CONTENTS OF 1 VIAL VIA NEBULIZE R TWICE DAILY. RINSE AND SPIT AFTER USE. active Not Available Not Available No t Available budesonid e 0.5 mg/2 mL suspensio n for nebulizat ion INHALE 1 VIAL VIA NEBULIZE R DAILY DIRECTED . RINSE AND SPIT 11/21 completed Not Available Not Available Not Available monteluka st 10 mg tablet 11/18 completed Not Available Not Available Not Available magnesium 250 mg tablet Take 2 tablets by oral route at bedtime. 2020 active Not Available Not Available Not Avai lable ergocalci ferol (vitamin D2) 1,250 mcg (50,000 unit) capsule TAKE 1 CAPSULE BY MOUTH EVERY WEEK active Not Available Not Available No t Available levalbute rol 1.25 mg/3 mL solution for nebulizat ion INHALE THE CONTENTS OF 1 VIAL VIA NEBULIZE R THREE TIMES DAILY NEEDED FOR SHORTNES S OF BREATH OR WHEEZING . active Not Available Not Available No t Available azelastin e 137 mcg (0.1 %) nasal spray USE 1 SPRAY IN EACH NOSTRIL EVERY 12 HOURS active Not Available Not Available No t Available levofloxa maite 500 mg tablet TK 1 T PO Q 24 H FOR 7 DAYS 07/20 completed Not Available Not Available Not Available methylpre dnisolone 4 mg tablets in a dose pack TK UTD 07/20 completed Not Available Not Available Not Available albuterol sulfate HFA 90 mcg/actua tion aerosol inhaler INHALE 2 PUFFS BY MOUTH EVERY 4 HOURS NEEDED FOR SHORTNES S OF BREATH 2024 active SAMANTHA 04/12/24 NOV 12/06/24 ok to rf Not Available Not Available Not Available fluticaso ne propionat e 50 mcg/actua tion nasal spray,lissa pension SHAKE LIQUID AND USE 1 SPRAY IN EACH NOSTRIL TWICE DAILY active Not Available Not Available No t Available levothyro xine 112 mcg tablet TAKE 1 TABLET BY MOUTH EVERY DAY 2024 active SAMANTHA 04/12/25 NOV 12/06/24 ok to rf Not Available Not Available Not Available magnesium 250 mg (as magnesium oxide) tablet 500 mg by oral route. active Not Available Not Available No t Available cyclobenz aprine 5 mg tablet TAKE 1 TABLET BY MOUTH THREE TIMES DAILY NEEDED FOR MUSCLE SPASM 11/16 completed Not Available Not Available Not Available Crestor 20 mg tablet TAKE 1 TABLET BY MOUTH EVERY DAY 08/15 completed Not Available Not Available Not Available bupropion HCl XL 150 mg 24 hr tablet, extended release Take 150 mg by oral route. 05/10 completed Pt states she is not taking this dose. She is taking the 100 SR Q 12hrs only Not Available Not Available Not Available Spiriva with [employer] r 18 mcg and inhalatio n capsules INL CONTENTS OF 1 C ONCE DAILY USING HANDIHAL ER 02/07 completed Not Available Not Available Not Available nitrofura ntoin monohydra te/macroc rystals 100 mg capsule TAKE 1 CAPSULE BY MOUTH EVERY 12 HOURS FOR 5 DAYS 06/22 completed Not Available Not Available Not Available eszopiclo ne 3 mg tablet TK 1 T TO LAB WITH YOU ON NIGHT OF SLEEP STUDY TK T WHEN YOU ARE READY TO GO TO BED 06/22 completed Not Available Not Available Not Available Enablex 15 mg tablet,ex tended release active Not Available Not Available Not Available aspirin 81 mg delayed release active Pt has been taking this for many years. OTC Not Available Not Available Not Available cranberry 2020 active Not Available Not Available Not Avai lable vitamin B complex 11/21 completed Not Available Not Available Not Available omeprazol e 20 mg daily active Not Available Not Available No t Available Xopenex HFA 45 mcg/actua tion aerosol inhaler INHALE 2 PUFSS Q 4 H active Not Available Not Available No t Available arformote rol 15 mcg/2 mL solution for nebulizat ion USE 2 ML VIA NEBULIZE R TWICE DAILY active Not Available Not Available No t Available budesonid e 1 mg/2 mL suspensio n for nebulizat ion Inhale 2 mL every day by nebuliza tion route. active Not Available Not Available No t Available cholecalc iferol (vitamin D3) 50 mcg (2,000 unit) tablet Take 50 microgra ms by oral route. active on hold 90 days 02/17/24 Not Available Not Available Not Available roflumila st 500 mcg tablet TAKE 1 TABLET BY MOUTH DAILY active Not Available Not Available No t Available Fluvirin (PF) 45 mcg (15 mcg x3)/0.5 mL intramusc ular syringe INJECT 0.5 ML INTRAMUS CULARLY DIRECTED . active Not Available Not Available No t Available Pazeo 0.7 % eye drops INSTILL 1 GTT IN OU ONCE D 02/04 completed Not Available Not Available Not Available Fluvirin 45 mcg (15 mcg x 3)/0.5 mL intramusc ular suspensio n active Not Available Not Available Not Available Trelegy Ellipta 100 mcg-62.5 mcg-25 mcg powder for inhalatio n INHALE 1 PUFF BY MOUTH DAILY 11/21 completed Replaced w/ other nebulize rs, this med was causing nausea Not Available Not Available Not Available Daliresp 250 mcg tablet TAKE 1 TABLET BY MOUTH DAILY FOR 4 WEEKS 03/19 completed Not Available Not Available Not Available Yupelri 175 mcg/3 mL solution for nebulizat ion INHALE THE CONTENTS OF 1 VIAL VIA NEBULIZE R ONCE DAILY DIRECTED active Not Available Not Available No t Available Fluzone High-Dose 2018-20 (PF) 180 mcg/0.5 mL intramusc ular syringe ADMINIST ER 0.5ML IN THE MUSCLE DIRECTED 06/22 completed Not Available Not Available Not Available Vitals Date Recorded Body height Body mass index (BMI) Body weight Provider Name and Address Organization Details Last Updated DateTime 11/22/2023 162.56 cm 30 kg/m2 09174.66 g Lissette Larsen RN [facility] [employer] [facility] 11/22/2023 11:32:53 Date Recorded Body weight Body mass index (BMI) Body height Body temperature Heart rate Oxygen saturation Oxygen saturation in Arterial blood by Pulse oximetry Inhaled oxygen flow rate Systolic blood pressure Diastolic blood pressure Provider Name and Address Organization Details Last Updated DateTime 4 36210.0 7 g 29.9 kg/m2 162.56 cm 97.5 [degF] 94 /min 93 % 93 % 4 L/min 110 mm[Hg] 70 mm[Hg] ANDERSON Hernandez [facility] [employer] [facility] 4 12:39:59 Date Recorded Body height Body mass index (BMI) Body weight Heart rate Body height Heart rate Body mass index (BMI) Body weight Systolic blood pressure Diastolic blood pressure Systolic blood pressure Diastolic blood pressure Provider Name and Address Organization Details Last Updated DateTime 4 162.56 cm 29.9 kg/m2 68478.0 7 g 94 /min 162.56 cm 94 /min 29.9 kg/m2 71882.0 7 g 110 mm[Hg] 70 mm[Hg] 110 mm[Hg] 70 mm[Hg] Lissette Larsen RN [facility] [employer] [facility] 4 13:52:26 Date Recorded Body height Heart rate Systolic blood pressure Diastolic blood pressure Provider Name and Address Organization Details Last Updated DateTime 01/25/2024 162.56 cm 85 /min 130 mm[Hg] 74 mm[Hg] Joni Larsen RN [facility] [employer] [facility] 01/25/2024 15:09:56 Date Recorded Body height Body mass index (BMI) Body weight Body temperature Heart rate Oxygen saturation Oxygen saturation in Arterial blood by Pulse oximetry Inhaled oxygen flow rate Systolic blood pressure Diastolic blood pressure Provider Name and Address Organization Details Last Updated DateTime 4 162.56 cm 30.2 kg/m2 67613.2 6 g 98 [degF] 89 /min 96 % 96 % 4 L/min 120 mm[Hg] 74 mm[Hg] ANDERSON Hernandez [facility] [employer] [facility] 4 12:46:11 Social History Question Answer Notes LastModified by Organization Details LastModified Time Tobacco Smoking Status Former Smoker 2004 Lavern Eckert james [facility] [employer] [facility] 06/09/2023 12:16:07 Do You Have An Advance Directive? No Info Given [email or web address] Information not available 11/16/2023 Are You Blind Or Do You Have Difficulty Seeing? No Information not available 06/09/2023 Is Blood Transfusion Acceptable In An Emergency? Yes Information not available 11/22/2023 What Is Your Level Of Caffeine Consumption? Moderate [id number] Information not available 08/18/2022 How Much Tobacco Do You Chew? None [id number] Information not available 08/18/2022 In The 14 Days Before Symptom Onset, Have You Had Close Contact With A Laboratory-conf irmed COVID-19 While That Case Was Ill? No Information not available 06/09/2023 In The 14 Days Before Symptom Onset, Have You Had Close Contact With A Person Who Is Under Investigation For COVID-19 While That Person Was Ill? No Information not available 06/09/2023 Are You Deaf Or Do You Have Serious Difficulty Hearing? Yes Has Hearing Aids [email or web address] Information not available 11/16/2023 What Type Of Diet Are You Following? CARDIAC [id number] Information not available 08/18/2022 Which Illicit Or Recreational Drugs Have You Used? None Information not available 06/09/2023 Have There Been Any Changes To Your Family Or Social Situation? No [email or web address] Information not available 11/16/2023 What Is The Fluoride Status Of Your Home? Unknown Information not available 06/09/2023 When Did You Quit Smoking? 11-15yearssincelas [email or web address] Information not available 06/09/2023 Are There Any Guns Present In Your Home? No Information not available 06/09/2023 Do You Use Insect Repellent Routinely? No Information not available 06/09/2023 Where Do You Live? SingleLevelHouse [email or web address] Information not available 11/16/2023 Advance Directive- Providers Has Reviewed Directive And Consents To Follow Them (insert Provider Name With Any Objectives In Notes Field) No Pt Will Get This Done At December Appt Information not available 11/22/2023 Are You Able To Care For Yourself? No [email or web address] Information not available 11/16/2023 Are You Deaf Or Do You Have Serious Difficulty Hearing? Yes [email or web address] Information not available 11/16/2023 General Stress Level? Moderate Information not available 11/22/2023 Live Alone Of With Others? With Others [email or web address] Information not available 11/16/2023 Do You Have A Medical Power Of Assistant Vice President? No [email or web address] Information not available 11/16/2023 What Was The Date Of Your Most Recent Tobacco Screening? 11/16/2023 Information not available 11/16/2023 Do You Have Any Pets? Yes [email or web address] Information not available 11/16/2023 What Is Your Relationship Status? [id number] Information not available 08/18/2022 Do You Use Your Seat Belt Or Car Seat Routinely? Yes Information not available 06/09/2023 Do You Have Smoke And Carbon Monoxide Detectors In Your Home? Yes Information not available 06/09/2023 At What Age Did You Start Smoking Tobacco? 16 Information not available 06/09/2023 Are You Passively Exposed To Smoke? No Information not available 06/09/2023 Are There Any Smokers In Your House? No Information not available 06/09/2023 How Much Tobacco Do You Smoke? No [id number] Information not available 08/18/2022 Do You Use Sunscreen Routinely? No Information not available 06/09/2023 Have You Recently Traveled Abroad? No Information not available 06/09/2023 Do You Have Difficulty Walking Or Climbing Stairs? Yes Shortness Of Breath Information not available 06/09/2023 Sex: Female Functional Status Question Answer Note LastModified by Organization Details LastModified Time Do you use any illicit or recreational drugs? No Information not available 06/09/2023 Do you or have you ever used any other forms of tobacco or nicotine? No Information not available 06/09/2023 What is your level of alcohol consumption? None [id number] Information not available 08/18/2022 Do you have transportation difficulties? No Son is her transportation and help Information not available 11/22/2023 Are you able to walk? YESWOREST long distances uses wheelchair due to shortness of breath Information not available 06/09/2023 Do you have difficulty doing errands alone? Yes Information not available 06/09/2023 Are you able to care for yourself? Yes Information not available 06/09/2023 What is your occupation? n/a Information not available 06/09/2023 Do you have difficulty dressing or bathing? Yes has to sit down Information not available 06/09/2023 What is your exercise level? None [email or web address] Information not available 11/16/2023 Mental Status Question Answer Note LastModified by Organizat ion Details LastModified Time Do you feel stressed (tense, restless, nervous, or anxious, or unable to sleep at night)? [id number] Information not available 06/09/2023 Do you have difficulty concentrating, remembering or making decisions? No Information no t available 06/09/2023 Family History Relationship Description Onset Age of this Age Resolved Age Notes LastModified by Organization Details LastModified Time Mother Essential hypertension [id number] [id number] Not available 08/18/2022 04:41:52 Brother Essential hypertension [id number].626 [id number] Not available 08/18/2022 04:41:52 Father Essential hypertension MIGRATION.815 [id number] Not available 08/18/2022 04:41:52 Son Malignant neoplastic disease [id number].555 [id number] Not available 08/18/2022 04:41:52 Daughter Malignant neoplastic disease [id number].362 [id number] Not available 08/18/2022 04:41:52 Medical History Condition Response BLADDER PROBLEMS Y CHICKENPOX Y LUNG DISEASE/DISORDER Y HEARTBURN / REFLUX Y HYPERTENSION Y COPD Y HIGH CHOLESTEROL / HYPERLIPIDEMIA Y ANXIETY DISORDER Y MUMPS Y HYPOTHYROIDISM Y OSTEOPOROSIS Y CATARACTS Y SHINGLES N STROKE/TIA Y Do you have Advance directive? N Gynecological History Statement/Question Response Date of Last Mammogram 04/01/2021 Date of Last Colonoscopy Most Recent Bone Density 05/22/2021 Obstetrics History GPAL:G 0 P 0 0 0 0 Immunizations Vaccine Type Date Status Note Provider Nam e and Address Organization Details Recorded Time Influenza, adjuvanted, quadrivalent, PF 2 completed Lissette Larsen RN null, [facility] [employer] [facility] 01/25/2024 15:10:35 COVID-19, mRNA, LNP-S, PF, 30 mcg/0.3 mL dose 1 completed Lissette Larsen RN null, [facility] [employer] [facility] 01/25/2024 15:10:35 COVID-19, mRNA, LNP-S, PF, 30 mcg/0.3 mL dose, chelo-sucrose 2 completed JB Louie, [facility] [employer] [facility] 01/25/2024 15:10:35 COVID-19, mRNA, LNP-S, bivalent, PF, 30 mcg/0.3 mL dose 2 completed Lissette Larsen RN null, [facility] [employer] [facility] 01/25/2024 15:10:35 Influenza, high-dose, trivalent, PF 9 completed JB Louie, [facility] [employer] [facility] 01/25/2024 15:10:35 Influenza, split virus, trivalent, preservative 2 completed JB Louie, [facility] [employer] [facility] 01/25/2024 15:10:35 Influenza, split virus, trivalent, preservative 3 completed JB Louie, [facility] 01/25/2024 15:10:35 Influenza, split virus, trivalent, PF 5 completed Lissette Larsen RN null, [facility] 01/25/2024 15:10:35 Influenza, split virus, trivalent, PF 4 completed Lissette Larsen RN null, [facility] 01/25/2024 15:10:35 Influenza, split virus, quadrivalent, PF 8 completed Lissette Larsen RN null, [facility] 01/25/2024 15:10:35 COVID-19, mRNA, LNP-S, PF, 30 mcg/0.3 mL dose 1 completed Lissette Larsen RN null, [facility] 01/25/2024 15:10:35 COVID-19, mRNA, LNP-S, PF, 30 mcg/0.3 mL dose 1 completed Lissette Larsen RN null, [facility] 01/25/2024 15:10:35 Influenza, high-dose, trivalent, PF 5 completed Lissette Larsen RN null, [facility] 01/25/2024 15:10:35 Influenza, high-dose, trivalent, PF 3 completed Lissette Larsen RN null, [facility] 01/25/2024 15:10:35 Influenza, high-dose, trivalent, PF 1 completed Lissette Larsen RN null, [facility] 01/25/2024 15:10:35 COVID-19, mRNA, LNP-S, PF, 100 mcg/0.5mL dose or 50 mcg/0.25mL dose 2 completed Kalexaanum Larsen RN null, [facility] 01/25/2024 15:10:35 COVID-19, mRNA, LNP-S, PF, 100 mcg/0.5mL dose or 50 mcg/0.25mL dose 1 completed Lissette Larsen RN null, [facility] [employer] [facility] 01/25/2024 15:10:35 Influenza, split virus, quadrivalent, preservative 9 completed Lissette Larsen RN null, [facility] [employer] [facility] 01/25/2024 15:10:35 Influenza, high-dose, trivalent, PF 0 completed Lissette Larsen RN null, [facility] [employer] [facility] 01/25/2024 15:10:35 pneumococcal polysaccharide PPV23 8 completed Not Available [facility] 08/18/2022 04:55:22 Influenza, high-dose, quadrivalent, PF 1 completed Not Available [facility] 08/18/2022 04:55:22 Influenza, split virus, quadrivalent, preservative 6 completed Not Available [facility] 08/18/2022 04:55:22 Pneumococcal conjugate PCV 13 9 completed Not Available [facility] 08/18/2022 04:55:22 pneumococcal polysaccharide PPV23 4 completed Not Available [facility] 08/18/2022 04:55:22 Influenza, high-dose, quadrivalent, PF 3 completed Nolan Gonzalez MD [address] [place] [address], [place], [address], [facility] [employer] [facility] 06/09/2023 13:09:19 Past Encounters Encounter ID Performer Location Encounter Start Date Encounter Closed Date Diagnosis/Indication Diagnosis SNOMED-CT Code Diagnosis ICD10 Code Diagnosis Note [id number] MD ANGUS Marion_[facility] Internal Med [address] [place] [address] 11/13/2020 00:00:00 11/13/2020 13:03:07 [id number] MD ANGUS Marion_[facility] Internal Med [address] [place] [address] 03/19/2021 00:00:00 03/19/2021 13:32:43 [id number] Nolan Gonzalez MD S_[facility] Internal Med [address] [place] [address] 08/11/2021 00:00:00 08/11/2021 12:59:14 [id number] Nolan Gonzalez MD S_[facility] Internal Med [address] [place] [address] 01/14/2022 00:00:00 01/14/2022 12:18:04 [id number] Nolan Gonzalez MD S_[facility] Internal Med [address] [place] [address] 06/22/2022 00:00:00 06/22/2022 13:23:15 [id number] Nolan Gonzalez MD S_[facility] Internal Med [address] [place] [address] 11/25/2022 11:20:07 11/25/2022 12:15:51 Benign essential hypertension 9325179 I10 under control Osteoporosis 48920301 M8 1.0 on meds, Dexa 06/09 Anxiety 38200268 F41.9 meds help Depressive disorder 3548 9007 F32.9 stable with meds Hypothyroidism 82862120 E03.9 stable Hyperlipidemia 90285955 E78.5 stable Osteoarthritis 397358184 M19.90 under control Restless legs 30994823 G 25.81 better with meds Sleep apnea 74166676 G47 .30 On CPAP Chronic ob structive pulmonary disease 36031092 J44.9 stable Vitamin D deficiency 347 55827 E55.9 on OTC Insomnia 127369708 G47.0 0 better Hypertriglyceridemia 302 453080 E78.1 advised to lose weight watch and diet Adult heal th examination 787805603 Z00.00 Colonoscop y 04/03 at [facility] - report requested and no records was foundDexa- 05/2021Mam mo- 07/2022LDCT -01/2021, pulm nodulePneu movax 2007 and 2013Prevna r 09/2018FLU - 2021 (Caesar )COVID- 08/20/20, 09/10/20, 04/05/21, 11/25/21 Hearing loss 46447033 H9 1.93 Long-term drug therapy 828387311 Z79.195 [id number] Nolan Gonzalez MD [facility] Internal Med [address] [facility] [place] [address] 06/09/2023 12:15:54 06/09/2023 13:11:44 Benign essential hypertension 7901043 I10 not under control Osteoporosis 03615035 M8 1.0 on meds, Dexa next time Anxiety 18252730 F41.9 meds help Depressive disorder 3548 9007 F32.9 stable with meds Hypothyroidism 84101485 E03.9 stable Hyperlipidemia 76606845 E78.5 stable Osteoarthritis 512151426 M19.90 under control Restless legs 40117280 G 25.81 better with meds Sleep apnea 02515962 G47 .30 On CPAP Chronic ob structive pulmonary disease 14365974 J44.9 stable Vitamin D deficiency 347 99178 E55.9 on OTC Insomnia 254275283 G47.0 0 better Hypertriglyceridemia 302 845072 E78.1 advised to lose weight watch and diet Adult [facility] th examination 729720295 Z00.00 Colonoscop y 04/03 at [facility] - report requested and no records was foundDexa- 05/2021Mam mo- 07/2022LDCT -01/2021, pulm nodulePneu movax 2007 and 2013Prevna r 09/2018FLU - 06/09/2023 COVID- 08/20/20, 09/10/20, 04/05/21, 11/25/21 Administra tion of influenza vaccine 86899197 Z23 [id number] Nolan Gonzalez MD [facility] Internal Med [address] [facility] [place] [address] 08/24/2023 11:30:53 08/24/2023 12:35:24 Pre-surgery evaluation 671590602 Z01.818 no restrictio n Chronic ob structive pulmonary disease 69022738 J44.9 stable Essential hypertension 94989870 I10 under control [id number] Nolan Gonzalez MD [facility] Internal Med [address] [facility] [address] 09/30/2023 14:26:45 09/30/2023 15:19:10 Adult health examination 170269748 Z00.00 here for surgical clearancem ads reviewedec ho done at [facility] yesterday is reviewed and copy scanned to chart (ordered by pathology) she saw dr gonzalez in august for clearance but it was too soon and the eye surgeon wanted her to come packproble ms and meds reviewedsu rgical paperwork filled out and signed and faxed, copy given to patientlow risk for outpatient surgical procedure but she wears oxygen 4 L NC with activity and she may need to wear oxygen during the procedureI instructed her to use all her inhalers prior to the procedure as she is concerned about coughing during the procedure Essential hypertension 88531509 I10 Hyperlipidemia 69566124 E78.5 Chronic ob structive pulmonary disease 51712156 J44.9 Hypothyroidism 14876665 E03.9 [id number] ROSALINE Godoy [facility] Internal Med [facility] [address] [facility] [place] [address] 11/10/2023 13:45:55 11/10/2023 17:01:47 [id number] Nolan Gonzalez MD [facility] Internal Med [facility] [address] [facility] [place] [address] 11/16/2023 12:04:43 11/16/2023 12:46:03 Benign essential hypertension 4502299 I10 add amlodipine Osteoporosis 20881721 M8 1.0 on meds, Anxiety 79642045 F41.9 meds help Depressive disorder 3548 9007 F32.9 stable with meds Hypothyroidism 03959302 E03.9 stable Hyperlipidemia 23453427 E78.5 stable Osteoarthritis 822404620 M19.90 under control Restless legs 72711527 G 25.81 better with meds Sleep apnea 03862414 G47 .30 On CPAP Chronic ob structive pulmonary disease 46293840 J44.9 stable Vitamin D deficiency 347 99319 E55.9 on OTC Insomnia 925679468 G47.0 0 better Hypertriglyceridemia 302 595441 E78.1 advised to lose weight watch and diet Adult heal th examination 029266481 Z00.00 Colonoscop y 04/03 at [facility] - report requested and no records was foundDexa- 08/13Mammo- 09/07/2023 LDCT-02/06 21, pulm nodulePneu movax 2007 and 2013Prevna r 09/2018FLU - 06/09/2023 COVID- 08/20/20, 09/10/20, 04/05/21, 11/25/21 Screening for disorder 497182470 Z13.9 [id number] Nolan Gonzalez MD [facility] Internal Med [address] [place] [address] 7 11/17/2023 11:59:21 02/27/2024 17:59:27 Chronic obstructive pulmonary disease 24320889 J44.9 Benign ess ential hypertension 6905030 I10 Anxiety 29484663 F41.9 Osteoporosis 88464714 M8 1.0 [id number] Nolan Gonzalez MD [facility] Internal Med [place] [address] 11/22/2023 11:24:37 02/27/2024 18:27:14 Benign essential hypertension 4860987 I10 Chronic ob structive pulmonary disease 70056580 J44.9 Anxiety 81955407 F41.9 Osteoporosis 69598900 M8 1.0 [id number] Nolan Gonzalez MD [facility] Internal [address] [address] 12/26/2023 12:12:28 12/26/2023 12:46:57 Benign essential hypertension 4390923 I10 much better [id number] Nolan Gonzalez MD [facility] Internal Med [address] [address] 12/27/2023 13:51:05 02/29/2024 18:01:39 Benign essential hypertension 6196495 I10 Chronic ob structive pulmonary disease 61908365 J44.9 Anxiety 15253100 F41.9 [id number] Nolan Gonzalez MD [facility] Internal Med [address] [address] 01/25/2024 15:07:20 03/06/2024 13:09:37 Benign essential hypertension 4213555 I10 Chronic ob structive pulmonary disease 19250392 J44.9 Anxiety 67454786 F41.9 Osteoporosis 22596189 M8 1.0 [id number] Nolan Gonzalez MD [facility] Internal Med [address] [place] [address] 04/12/2024 12:22:32 04/12/2024 13:51:19 Benign essential hypertension 6787192 I10 better with addition of amlodipine Osteoporosis 52039246 M8 1.0 on meds, Anxiety 49547249 F41.9 under control Depressive disorder 3548 9007 F32.9 stable with meds Hypothyroidism 88588263 E03.9 stable with meds Hyperlipidemia 69443455 E78.5 under control Osteoarthritis 064078225 M19.90 under control Restless legs 43855962 G 25.81 better with meds Sleep apnea 21806258 G47 .30 On CPAP Chronic ob structive pulmonary disease 51213174 J44.9 stable Vitamin D deficiency 347 06299 E55.9 treated, now on OTC Insomnia 846436897 G47.0 0 better with meds Hypertriglyceridemia 302 263090 E78.1 advised to lose weight watch and diet Adult heal th examination 029517051 Z00.00 Colonoscop y 04/03 at [facility] - report requested and no records was foundDexa- 08/13Mammo- 09/07/2023 LDCT-02/06 21, pulm nodule , no nodule on CT 02/08Pneumo vax 2007 and 2013Prevna r - 09/2018 , 02[facility]2024[facility] [facility] VID- 08/20/20, 09/10/20, 04/05/21, 11/25/21, 02/2024 Goals Section Goal Description Progress Status Start Date LastModified by Organization Details LastModified Time Heart Healthy Diet Maintain a low sodium and low fat diet, restricting artificial sweetener use NoChange active 2023 Lissette Larsen RN Information not available 01/25/2024 19:36:29 Coping with Anxiety Patient verbalizes strategies for coping with anxiety NoChange active 2023 Lissette Larsen RN Information not available 01/25/2024 19:34:39 Blood Pressure Maintains blood pressure goal as defined by care team Progressing active 2023 Lissette Larsen RN Information not available 01/25/2024 19:35:31 Stress Manageme nt Reports effective management of [facility] Lissette Larsen RN Information not available 11/16/2023 15:05:07 Exercise Regularl y Follows a regular exercise regimen or instructed exercise plan as per care team recommendation (s) [facility] Lissette Larsen RN Information not available 11/17/2023 16:01:49 Medicati on Regimen Follows medication regimen as per care team recommendation (s) Progressing active 2023 Lissette Larsen RN Information not available 12/27/2023 17:34:02 COPD Pt follows care pathway as dictated by [facility] Lissette Larsen RN Information not available 11/16/2023 15:09:44 Respirat ory Health Patient is free from signs and symptoms of respiratory distress [facility] Lissette Larsen RN Information not available 11/16/2023 15:09:44 Managing Anxiety Patient demonstrates increased interest in diversional activities [facility] Lissette Larsen RN Information not available 11/16/2023 15:08:43 Pain Manageme nt Plan Reports satisfaction with current pain management plan (e.g., medication and non-medication pain relief interventions) [facility] Lissette Larsen RN Information not available 11/17/2023 16:02:33 Stress Manageme nt Reports effective management of stress [facility] active 2023 Lissette Larsen RN Information not available 12/27/2023 17:34:09 Quality of Life Reports satisfaction with quality of life Progressing active 2023 Lissette Larsen RN Information not available 12/27/2023 17:34:12 Recreati onal Activiti es Participates in recreational activities [facility] Lissette Larsen RN Information not available 11/22/2023 16:11:35 Exercise Regularl y Follows a regular exercise regimen or instructed exercise plan as per care team recommendation (s) [facility] active 2023 Lissette Larsen RN Information not available 11/22/2023 16:11:35 Activiti es of Daily Living Performs activities of daily living independently or with minimal assistance [facility] active 2023 Lissette Larsen RN Information not available 11/22/2023 16:11:35 Adequate Sleep Achieves adequate, well-rested sleep with minimal disruption [facility] active 2023 Lissette Larsen RN Information not available 12/27/2023 15:53:54 Medicati on Regimen Follows medication regimen as per care team recommendation (s) [facility] active 2023 Lissette Larsen RN Information not available 12/27/2023 17:34:18 Follow-u p Appointm ent(s) Attends referral and/or follow-up appointment(s) as per care team recommendation (s) [facility] Lissette Larsen RN Information not available 11/22/2023 16:11:35 Adequate Housing Conditio ns Maintains adequate housing with satisfactory living conditions [facility] Lissette Larsen RN Information not available 11/22/2023 16:11:35 Effectiv e Coping Manages life events with effective coping methods Progress[facility] active 2023 Lissette Larsen RN Information not available 12/27/2023 17:34:22 Family and Social Support Reports family and/or social support needs are met [facility] Lissette Larsen RN Information not available 11/22/2023 16:11:35 Food Security Reports ability to access and obtain foods to meet nutritional needs [facility] 20[facility] Lissette Larsen RN Information not available 11/22/2023 16:11:36 Diet Adherenc e Follows prescribed or recommended diet [facility] 2023 Lissette Larsen RN Information not available 11/22/2023 16:11:36 Knowledg e of Disease or Conditio n Demonstrates understanding of disease(s) or condition(s) [facility] Lissette Larsen RN Information not available 11/22/2023 16:11:36 Smoking Cessatio n Quits smoking [facility] Lissette Larsen RN Information not available 11/22/2023 16:11:36 Symptom Manageme nt Demonstrates ability to manage and/or control symptoms [facility]23 Lissette Larsen RN Information not available 11/22/2023 16:11:36 Financia l Stabilit y Reports financial status and/or income meets needs [facility] Lissette Larsen RN Information not available 11/22/2023 16:11:36 Chronic Conditio n Action Plan Follows action plan for any worsening of chronic condition(s) as per care team recommendation (s) [facility] active 2023 Lissette Larsen RN Information not available 12/27/2023 15:53:54 Lipid Levels Maintains normal lipid levels as defined by care team [facility] active 2023 Lissette Larsen RN Information not available 11/22/2023 16:11:37 Blood Pressure Maintains blood pressure goal as defined by care team [facility] active 2023 Lissette Larsen RN Information not available 12/27/2023 17:35:10 Weight Cherie nce Exhibits stable weight with normal fluctuation [facility] Lissette Larsen RN Information not available 11/22/2023 16:11:37 Mobility Maintains or improves baseline mobility and/or moves independently [facility] Lissette Larsen RN Information not available 11/22/2023 16:11:37 Healthy Weight Maintain a healthy body weight as recommended by your care team [facility] active 2023 Lissette Larsen RN Information not available 11/22/2023 16:11:37 Active Range of Motion Demonstrates normal or improved active range of motion as defined by care team [facility] active 2023 Lissette Larsen RN Information not available 11/22/2023 16:11:37 Decrease d Alcohol Consumpt ion Reports decreased alcohol consumption as per care team recommendation (s) [facility] active 2023 Lissette Larsen RN Information not available 11/22/2023 16:11:38 Home/Env ironment Safety Reports having a safe environment that promotes independence and prevents injury [facility] active 2023 Lissette Larsen RN Information not available 11/22/2023 16:11:38 Strength and Conditio baljeet Achieves improved strength and conditioning as defined by care team [facility] active 2023 Lissette Larsen RN Information not available 11/22/2023 16:11:38 Fall Safety Reports no recent falls and/or fall injuries [facility] active 2023 Lissette Larsen RN Information not available 11/22/2023 16:11:38 Assistiv e/Adapti ve Devices Uses assistive/adap tive devices properly and safely as per care team recommendation (s) [facility] active 2023 Lissette Larsen RN Information not available 11/22/2023 16:11:38 Effectiv e Pain Manageme nt Reports or exhibits adequate pain relief as determined by appropriate pain scale [facility] active 2023 Lissette Larsen RN Information not available 11/22/2023 16:11:38 Balance Maintains or improves baseline balance [facility] active 2023 Lissette Larsen RN Information not available 11/22/2023 16:11:38 Substanc e Cessatio n Reduces or avoids substance use [facility] active 2023 Lissette Larsen RN Information not available 11/22/2023 16:11:38 Health Concerns Section Related Observation LastModified by Organization Detai ls LastModified Time Not Available Not Available Not Available Not Availabl e Concern Status LastModified by Organization Details LastModified Time Chronic obstructive lung disease Active Lissette Larsen RN Not Available 11/16/2023 1 5:09:44 Anxiety Active Lissette Larsen RN Not Available 15:08:43 Osteoporosis Active Lissette Larsen RN Not Available 11/17/2023 16:02:33 Benign essential hypertension Active Lissette Larsen RN Not Available 12/27/2023 1 5:53:54 Advance Directives Directive N: Info given Payers Encounter Date Sequence Insurance Name Policy Number Policy Melchor Covered Member ID Melchor Member ID Guarantor Name 11/22/[address] [facility] (MEDICARE REPLACEMENT/ ADVANTAGE - PPO) [id number] Diamante A Standefer [id number] Diamante A Standefer 11/22/2023 2 [place] [facility] Diamante A Standefer [id number] Diamante A Standefer 12/26/[address] [facility] (MEDICARE REPLACEMENT/ ADVANTAGE - PPO) [id number] Diamante A Standefer [id number] Diamante A Standefer 12/26/2023 2 [place] [facility] Diamante A Standefer [id number] Diamante A Standefer 12/27/[address] [facility] (MEDICARE REPLACEMENT/ ADVANTAGE - PPO) [id number] Diamante A Standefer [id number] Diamante A Standefer 12/27/2023 2 [place] [facility] Diamante A Standefer [id number] Diamante A Standefer 01/25/[address] [facility] (MEDICARE REPLACEMENT/ ADVANTAGE - PPO) [id number] Diamante A Standefer [id number] Diamante A Standefer 01/25/2024 2 [place] [facility] Diamante A Standefer [id number] Diamante A Standefer 04/12/[address] [facility] (MEDICARE REPLACEMENT/ ADVANTAGE - PPO) [id number] Diamante A Standefer [id number] Diamante A Standefer 04/12/2024 2 [place] [facility] Diamante A Standefer [id number] Diamante A Standefer Notes Date Note Type Note Provider Name and Address Organization Details Recorded Time 12/26/2023 text/html Pt is here today for a 1 month follow up.Last month her b/p was 162/88 and Amlodipine 5mg was addedToday her b/p is 110/70.No complaints, no cp or sob Nolan Gonzalez MD [address] [place] [address], [address], [place], [address], [place] [employer] 12/26/2023 12:46:15 12/27/2023 text/html BP stable, Pt is A [employer], vision improved, COPD stable Therese ramirez, [employer] 02/29/2024 18:01:35 01/25/2024 text/html Pt doing well, t kallie she has HAM from the Cataracts surgery. She is getting her new glasses on Therese ramirez, [employer] 03/06/2024 13:06:01 04/12/2024 text/html Pt is here today for her routine follow up, She is compliant to all her medsPT IS FASTING Has hearing aids Had Cataract surgery on her left eye and is scheduled to have HTN- under controlMeds- Lisinopril 20mg bid, amlodipine 5 mg qd Went and seen Dr. Luna (Cardiology) and states that she has some fluid around the heart. Was told to watch her water intake. Does have a follow up appt in 6 months COPD is better with inhalers, spiriva and Advair was stopped in the past due to vomiting ,some times gets sob when weather changes, seeing Dr. Gerber, had PFT's.she is on o2 , usually 3.5 L while sitting and 4 L on walking.Meds- Trelegy Ellipta 1 puff daily, Levalbuterol 1.25mg/3ML for nebulizer, Ventolin inhaler as needed, o2, DalirespEx smoker-Last CT- chest- 01/2022 in chart, benignAnxiety and depression- mood is better,Meds- Citalopram 40 mg daily, Bupropion 100 mg BID , BupropionSleep apnea- on cpap, compliant, it helps Obesity- advised to lose more ,Hypothyroidism- On meds, labs good 12/10Meds- Levothyroxine 112 mcg dailyOveractive bladder- better with meds, some dry mouthMeds- Tolterodine 4 mg dailyHyperlipidemia-u nder controlMeds- Atorvastatin 20 mg dailyRLS - better with meds,Meds- Ropinirole 2 mg HSArthritis- mostly hands, no meds neededOsteoporosis- takes weekly med, dexa 08/12, no reportMeds- Alendronate 70 mg weeklyLeft lung nodule s/p neg biopsy, granulomaInsomnia- on Trazodone and better VIt D def- on otcNegative stress test 05/2019 Nolan Gonzalez MD [address] [facility], [facility] [address], [place], [address], [place] [facility] [place] [employer] 04/12/2024 13:11:41 OBGyn Episode No OBEpisode recorded.
--- NOTE | 2024-11-11 14:24 | ED_ITS ---
HPI - Female Genitourinary General Chief complaint: Urogenital-Female Stated complaint: uti Time Seen by Provider: 11/11/24 13:54 History of Present Illness HPI Narrative: Patient is a 69-year-old female who presents to the ER with urinary tract infection symptoms. She reports she went to urgent care last week and was placed on Keflex for 5 days. Patient reports she finished her prescription 2 days ago and continues to have symptoms. She reports she has a history of UTIs, COPD (4 L NC at baseline), tumor ligation, high blood pressure, hyperlipidemia. Patient denies any recent fevers, back pain, shortness of breath, or lower extremity swelling. She endorses symptoms including burning, urgency, and incomplete emptying. Related Data Home Medications ?Medication ?Instructions ?Recorded ?Confirmed ?Last Taken ?Type aspirin 81 mg tablet,delayed 81 mg PO DAILY 05/09/19 06/28/24 Unknown History release (Adult Low Dose Aspirin) atorvastatin 20 mg tablet 20 mg PO DAILY 05/09/19 06/28/24 Unknown History bupropion HCl 100 mg tablet 100 mg PO BID 05/09/19 06/28/24 Unknown History cetirizine 10 mg tablet (Zyrtec) 5 mg PO DAILY PRN 05/09/19 06/28/24 Unknown History citalopram 40 mg tablet 20 mg PO DAILY 05/09/19 06/28/24 Unknown History levothyroxine 112 mcg tablet 112 mcg PO DAILY 05/09/19 06/28/24 Unknown History omeprazole magnesium 20 mg 20 mg PO DAILY 05/09/19 06/28/24 Unknown History capsule,delayed release tolterodine 4 mg capsule,extended 4 mg PO DAILY 05/09/19 06/28/24 Unknown History release 24 hr pramipexole 1 mg tablet 1 mg PO TID 07/13/21 06/28/24 Unknown History trazodone 100 mg tablet 100 mg PO QHS PRN 07/13/21 06/28/24 Unknown History alendronate 70 mg tablet mg PO 02/02/23 06/28/24 Unknown History lisinopril 20 mg tablet 40 mg PO DAILY 09/14/23 06/28/24 Unknown History amlodipine 5 mg tablet 5 mg PO DAILY 03/15/24 06/28/24 Unknown History buspirone 10 mg tablet 10 mg PO BID 03/15/24 06/28/24 Unknown History Allergies Allergy/AdvReac Type Severity Reaction Status Date / Time albuterol Allergy Mild Palpitation Verified 11/01/24 11:20 s Review of Systems 2 Review of Systems: All systems reviewed & are unremarkable except as noted in HPI and below PMFSH Surgical History Surgical History Bladder polyps Tonsillectomy planned Family History Family History Sibling Hypertension Grandparent Hypertension Mother Hypertension Father Hypertension Asthma Daughter Brain injury Malignant neoplastic disease Social History Social History Smoking packs per day: 2 Smoking cigarettes per day: 40.0 Years smoked: 33 Smoking pack-years: 66.00 Smoking status: Former smoker Tobacco type: cigarettes Smoking end date: 06/20/05 Alcohol intake: current Exam 2 Narrative: GENERAL: Well appearing, well-nourished, non-toxic, in no acute distress. HEAD: Normocephalic, atraumatic. NECK: Supple. No adenopathy, no masses. RESPIRATORY: Airway patent, respirations nonlabored. Clear to auscultation bilaterally, no rales, rhonchi. + wheezing (baseline for pt, declining nebulizer treatment here in the ER) CARDIOVASCULAR: Regular rate and rhythm without murmurs, rubs, or gallops. Peripheral pulses 2+ and equal bilaterally. ABDOMINAL: Soft, nontender, nondistended, no hepatosplenomegaly. Normoactive BS. MUSCULOSKELETAL: Moves all extremities. Strength/ROM intact without gross deformities. SKIN: Warm, dry, normal color. No rashes. NEURO: A&O X3. Speech clear. Cranial nerves II-XII intact. No ataxic movements. PSYCHIATRIC: Appropriate mood and affect. Normal interaction. Course Vital Signs Vital signs: Vital Signs Pulse Rate 92 11/11/24 13:25 Respiratory Rate 16 11/11/24 13:25 Blood Pressure 124/65 11/11/24 13:25 Pulse Oximetry 99 11/11/24 13:25 Pulse Rate 88 11/11/24 14:49 Respiratory Rate 20 11/11/24 14:49 Blood Pressure 134/71 11/11/24 14:49 Pulse Oximetry 100 11/11/24 14:49 MDM - Female Genitourinary MDM Narrative Medical decision making narrative: Patient is a 69-year-old female who presents to the ER with urinary tract infection symptoms. She reports she went to urgent care last week and was placed on Keflex for 5 days. Patient reports she finished her prescription 2 days ago and continues to have symptoms. She reports she has a history of UTIs, COPD (4 L NC at baseline), tumor ligation, high blood pressure, hyperlipidemia. Patient denies any recent fevers, back pain, shortness of breath, or lower extremity swelling. She endorses symptoms including burning, urgency, and incomplete emptying. Labs Ordered: CBC, CMP, UA Imaging Ordered: None necessary Medications Ordered: 1 L normal saline IV bolus, Augmentin p.o., Toradol 15mg IV Results: Patient's urinalysis indicates leukocytes of 2+ and white blood cell count of 21-50. Her CBC indicates a white blood cell count of 13.4. Patient's kidney function is within normal limits. Diagnosis: Urinary tract infection Consults: urology (outpatient) Patient Education/Shared MDM: Results of lab work shared with patient. She endorses improvement of symptoms following medication administration. Patient s trongly advised to maintain hydration status upon discharge and follow-up with urology as soon as possible. She will be discharged home with a prescription for Augmentin. Strict return precautions provided. Patient verbalized understanding and is in agreement with plan. Vital signs stable at time of discharge. All questions answered. Differential Diagnosis Differential diagnosis: Likely urinary tract infection, cystitis and other (pyelonephritis, acute kidney injury) Lab Data Attestation: I reviewed the patient's lab results. 11/11/24 14:37 11/11/24 14:37 Labs: Lab Results 11/11/24 Range/Units 14:37 WBC 13.4 H (4.5-10.0) K/mm3 RBC 4.63 (4.2-5.4) M/mm3 Hgb 10.0 L (12.0-15.0) g/dL Hct 35.9 L (37.0-47.0) % MCV 77.5 L (80-100) fl MCH 21.6 L (26-34) pg MCHC 27.9 L (32-36) g/dl RDW 17.0 H (11.5-14.5) % Plt Count 443 H (150-375) k/mm3 MPV 10.0 (7.4-10.4) fl Immature Gran % (Auto) 0.4 (0-0.5) % Neut % (Auto) 72.5 (45.5-73.1) % Lymph % (Auto) 18.3 (18.3-44.2) % Lamb % (Auto) 5.5 (2.6-8.5) % Eos % (Auto) 2.6 (0-4.4) % Baso % (Auto) 0.7 (0.2-1.2) % Lymph # (Auto) 2.45 (0.9-3.2) K/mm3 Lamb # (Auto) 0.7 H (0.1-0.6) K/mm3 Eos # (Auto) 0.4 H (0-0.3) K/mm3 Baso # (Auto) 0.1 (0.0-0.1) K/mm3 Abs Immat Gran (auto) 0.05 H (0.00-0.031) K/mm3 Absolute Neuts (auto) 9.7 H (1.3-6.7) K/mm3 Absolute Nucleated RBC 0.000 (0.0-0.012) K/mm3 Band Neutrophils % Not Reportable Nucleated RBC % 0.0 (0.0-0.2) % Platelet Estimate Increased (Adequate) Hypochromasia 1+ Microcytosis 1+ (NORMAL) Ovalocytes 1+ Stomatocytes 1+ Schistocytes None seen Sodium 142 (137-145) mmol/L Potassium 4.0 (3.4-5.0) mmol/L Chloride 105 (98-107) mmol/L Carbon Dioxide 28 (22-30) mmol/L Anion Gap 9 (4-12) mmol/L BUN 15 D (7-17) mg/dL Creatinine 0.87 (0.7-1.0) mg/dL Estim Creat Clear Calc 52 ml/min Estimated GFR > 60 (59 - ) Glucose 97 (65-110) mg/dL Calcium 9.5 (8.4-10.2) mg/dL Total Bilirubin 0.3 (0.2-1.3) mg/dL AST 27 (14-36) U/L ALT 18 (6-35) U/L Alkaline Phosphatase 125 (38-126) U/L Total Protein 8.0 (6.3-8.2) g/dL Albumin 4.5 (3.5-5.1) g/dL Urine Color Yellow (Yellow) Urine Appearance Clear (Clear) Urine pH 6.5 (5.0-9.0) Ur Specific [place] 1.017 (1.001-1.035) Urine Protein Negative (Negative) mg/dL Urine Glucose (UA) Negative (Negative) mg/dL Urine Ketones Negative (Negative) mg/dL Ur Blood (Man) Negative (Negative) Urine Nitrate Negative (Negative) Urine Bilirubin Negative (Negative) Urine Urobilinogen 0.2 (<2.0) mg/dL Leukocyte Esterase Rfl 2+ H (Negative) YANIRA/UL Urine RBC 0-2 (0-2) /hpf Urine WBC 21-50 H (0-3) /hpf Ur Squamous Epith Cells None seen (Few) /hpf Urine Bacteria None seen /hpf Urine Casts 0-2 Discharge Plan Discharge Clinical Impression: Urinary tract infection COPD (chronic obstructive pulmonary disease) Qualifiers: COPD type: unspecified COPD Qualified Code(s): J44.9 - Chronic obstructive pulmonary disease, unspecified Patient Disposition: Home Condition: Stable Instructions: Antibiotic Form, Urinary Tract Infection in Women (ED) Additional Instructions: Please return to the ER with any worsening symptoms. Follow-up with urology as soon as possible since you have had multiple urinary tract infections. Take all medications as prescribed, including regularly scheduled medications. You may use Tylenol and/or ibuprofen for pain control at home. Patient Language: Paraguayan Prescriptions: New amoxicillin-pot clavulanate 875-125 mg tablet 1 tablet PO Q12H Qty: 14 0RF No Action cephalexin 500 mg capsule 500 mg PO Q12H 5 Days Qty: 10 0RF lisinopril 20 mg tablet 40 mg PO DAILY amlodipine 5 mg tablet 5 mg PO DAILY buspirone 10 mg tablet 10 mg PO BID atorvastatin 20 mg tablet 20 mg PO DAILY cetirizine [Zyrtec] 10 mg tablet 5 mg PO DAILY PRN tolterodine 4 mg capsule,extended release 24hr 4 mg PO DAILY levothyroxine 112 mcg tablet 112 mcg PO DAILY omeprazole magnesium 20 mg capsule,delayed release(DR/EC) 20 mg PO DAILY citalopram 40 mg tablet 20 mg PO DAILY bupropion HCl 100 mg tablet 100 mg PO BID aspirin [Adult Low Dose Aspirin] 81 mg tablet,delayed release (DR/EC) 81 mg PO DAILY pramipexole 1 mg tablet 1 mg PO TID trazodone 100 mg tablet 100 mg PO QHS PRN alendronate 70 mg tablet PO budesonide 0.25 mg/2 mL suspension for nebulization 0.25 mg inhalation BID Qty: 120 11RF Rx Instructions: rinse and spit azelastine 137 mcg (0.1 %) spray,non-aerosol 1 spray intranasal Q12H Qty: 30 5RF Rx Instructions: administer into each nostril fluticasone propionate 50 mcg/actuation spray,suspension See Rx Instructions .ROUTE .COMPLEX Qty: 16 11RF Dose Instruction: USE ONE SPRAY IN EACH NOSTRIL TWICE DAILY FOR 30 DAYS Rx Instructions: USE ONE SPRAY IN EACH NOSTRIL TWICE DAILY FOR 30 DAYS arformoterol [Brovana] 15 mcg/2 mL solution for nebulization 2 ml inhalation BID Qty: 120 11RF Yupelri 175 mcg/3 mL solution for nebulization 175 mcg inhalation DAILY Qty: 90 11RF revefenacin 175 mcg/3 mL solution for nebulization 175 mcg/3 mL solution for nebulization 0RF roflumilast 500 mcg tablet See Rx Instructions .ROUTE .COMPLEX Qty: 30 11RF Dose Instruction: TAKE 1 TABLET BY MOUTH DAILY Rx Instructions: TAKE 1 TABLET BY MOUTH DAILY zafirlukast 20 mg tablet See Rx Instructions .ROUTE .COMPLEX Qty: 60 11RF Dose Instruction: TAKE 1 TABLET BY MOUTH EVERY 12 HOURS. WAIT 1 TO 2 HOURS AFTER FOOD Rx Instructions: TAKE 1 TABLET BY MOUTH EVERY 12 HOURS. WAIT 1 TO 2 HOURS AFTER FOOD levalbuterol HCl 1.25 mg/3 mL solution for nebulization See Rx Instructions .ROUTE .COMPLEX Qty: 825 3RF Dose Instruction: INHALE THE CONTENTS OF 1 VIAL VIA NEBULIZER THREE TIMES DAILY NEEDED FOR SHORTNESS OF BREATH OR WHEEZING. Rx Instructions: INHALE THE CONTENTS OF 1 VIAL VIA NEBULIZER THREE TIMES DAILY NEEDED FOR SHORTNESS OF BREATH OR WHEEZING. Follow-up/Referrals: Lisa,Naldo Callahan MD [Primary Care Provider] - Devante Rojo MD [Physician] - (urology) Time of Disposition: 15:59
[2024-11-11 14:47] LABS: Basophils Absolute Auto 0.1 K/mm3 (0.0-0.1); Basophils Percent Auto 0.7 % (0.2-1.2); Eosinophils Absolute Auto 0.4 K/mm3 (0-0.3); Eosinophils Percent Auto 2.6 % (0-4.4); Hematocrit 35.9 % (37.0-47.0); Immature Granulocyte Absolute 0.05 K/mm3 (0.00-0.031); Immature Granulocyte Percent A 0.4 % (0-0.5); Lymphocytes Absolute Auto 2.45 K/mm3 (0.9-3.2); Lymphocytes Percent Auto 18.3 % (18.3-44.2); Mean Corpuscular HGB Conc 27.9 g/dl (32-36); Mean Corpuscular Hemoglobin 21.6 pg (26-34); Mean Corpuscular Volume 77.5 fl (80-100); Monocytes Absolute Auto 0.7 K/mm3 (0.1-0.6); Monocytes Percent Auto 5.5 % (2.6-8.5); Neutrophils Absolute Auto 9.7 K/mm3 (1.3-6.7); Neutrophils Percent Auto 72.5 % (45.5-73.1); Platelet Count Result 443 k/mm3 (150-375); Red Blood Count 4.63 M/mm3 (4.2-5.4); White Blood Count 13.4 K/mm3 (4.5-10.0)
[2024-11-11] MEDS: SODIUM CHLORIDE 0.9% IV 1,000 ML 999 ML IV CONT (14:48)
[2024-11-11 14:49] VITALS: BP 134/71; PULSE 88; RESP 20; O2SAT 100
[2024-11-11 14:50] LABS: Add Urine Microscopic? YES; Appearance Urine Clear (Clear); Bacteria Urine None Seen /hpf; Bilirubin Urine Negative (Negative); Blood Urine Negative (Negative); Color Urine Yellow (Yellow); Glucose Urine UA Negative (Negative); Ketones Urine Negative (Negative); Leukocyte Esterase Ur 2+ LEU/UL (Negative); Nitrate Urine Negative (Negative); Non Pathogenic Casts 0-2; Protein Urine Negative (Negative); RBC Urine 0-2 /hpf (0-2); Specific Grav Ur 1.017 (1.001-1.035); Squamous Epithelial Cell Urine None Seen /hpf (Few); Urobilinogen Urine 0.2 mg/dL (<2.0); WBC Urine 21-50 /hpf (0-3); pH Urine 6.5 (5.0-9.0)
[2024-11-11 15:00] LABS: Hypochromasia 1+; Microcytosis 1+ (NORMAL); Platelet Estimate Increased (Adequate)
[2024-11-11 15:01] LABS: Ovalocytes 1+; Schistocytes None Seen; Stomatocytes 1+
[2024-11-11 15:08] LABS: Alanine Aminotransferase 18 U/L (6-35); Albumin Level 4.5 g/dL (3.5-5.1); Alkaline Phosphatase 125 U/L (38-126); Anion Gap 9 mmol/L (4-12); Aspartate Amino Transferase 27 U/L (14-36); Bilirubin,Total 0.3 mg/dL (0.2-1.3); Blood Urea Nitrogen 15 mg/dL (7-17); Calcium 9.5 mg/dL (8.4-10.2); Carbon Dioxide 28 mmol/L (22-30); Chloride 105 mmol/L (98-107); Estimated CRCL calculation 52 ml/min; Estimated Glomerular Filt Rate > 60; Glucose 97 mg/dL (65-110); Sodium 142 mmol/L (137-145)
== END 2024-11-11 16:22 | disposition home or self-care (01) ==
PROVIDERS: Emergency Provider Registered Nurse; PCP Internal Medicine
DX: N39.0 Urinary tract infection, site not specified (principal); J44.9 Chronic obstructive pulmonary disease, unspecified; I10 Essential (primary) hypertension; E78.5 Hyperlipidemia, unspecified; Z99.81 Dependence on supplemental oxygen; Z87.891 Personal history of nicotine dependence; Z79.82 Long term (current) use of aspirin; Z79.899 Other long term (current) drug therapy
CPT/HCPCS: 36415; 80053; 81001; 85025; 87077; 87086; 87186; 96360; 99283; J7030

== ENCOUNTER 2024-12-25 15:53 | Outpatient (CLI) | payer MEDICARE, MEDICAID, SELFPAY ==
--- NOTE | ~2024-12-25 | MM_ITS ---
EXAMINATION: MM screening sara BI w keiry HISTORY: Screening TECHNIQUE: Craniocaudal and mediolateral oblique 3-D tomosynthesis images were obtained and synthetic 2-D images were generated. CAD analysis was submitted and interpreted. COMPARISON: Comparison to multiple prior studies sequentially, with oldest reviewed study dated 03/20. BREAST PARENCHYMAL COMPOSITION: Not dense: There are scattered areas of fibroglandular density. FINDINGS: There is no evidence of suspicious mass, calcification, or architectural distortion to sugg est malignancy in either breast. There has been no suspicious interval change. IMPRESSION: 1. No mammographic evidence of malignancy. 2. Recommend routine screening mammography in one year. BI-RADS Category 1: Negative Reviewed, dictated and finalized at location A.
--- OUTSIDE RECORDS SUMMARY | 2024-12-25 15:57 | XMS_ITS | Clinical Summary ---
Author Organization [facility] Address [address] [place] [address] Care Team Providers Care Covering Machine Operator Helper Name Role Phone Naldo Gonzalez MD Primary Care Provider [phone] Allergies No known active allergies Medications levothyroxine (SYNTHROID) 112 MCG tablet Take 1 tablet (112 mcg total) by mouth every morning. Active lisinopril (PRINIVIL) 20 MG tablet Take 1 tablet (20 mg total) by mouth daily. Active atorvastatin (LIPITOR) 20 MG tablet Take 1 tablet (20 mg total) by mouth nightly at bedtime. Active roflumilast (DALIRESP) 500 MCG Tab Take 1 tablet (0.5 mg total) by mouth daily. Active zafirlukast (ACCOLATE) 20 MG Tab Take 200 tablets (4,000 mg total) by mouth 2 (two) times daily. on an empty stomach. Active pramipexole (MIRAPEX) 1.5 MG tablet Take 1 mg by mouth 3 (three) times daily. Active tolterodine LA (DETROL LA) 4 MG 24 hr capsule Take 1 capsule (4 mg total) by mouth daily. Active citalopram (CELEXA) 40 MG tablet Take 1 tablet (40 mg total) by mouth daily. Active buPROPion XL (WELLBUTRIN XL) 150 MG 24 hr tablet Take 1 tablet (150 mg total) by mouth daily. Active traZODone (DESYREL) 150 MG tablet Take 100 mg by mouth nightly at bedtime. Active alendronate (FOSAMAX) 10 MG tablet Take 7 tablets (70 mg total) by mouth every morning before breakfast. Weekly Active Revefenacin (YUPELRI) 175 MCG/3ML Solution Inhale 175 mcg into the lungs daily. Active arformoterol (BROVANA) 15 MCG/2ML Nebu Soln Take 2 mLs (15 mcg total) by nebulization 2 (two) times a day. Active budesonide (PULMICORT) 0.25 MG/2ML nebulizer solution Take 2 mLs (0.25 mg total) by nebulization daily. Active albuterol sulfate HFA 108 (90 Base) MCG/ACT inhaler Inhale 2 puffs into the lungs every 6 (six) hours as needed for Wheezing. Active NON FORMULARY Cpap with O2 at HS. Active NON FORMULARY 4L with activity. Active aspirin 81 MG chewable tablet Chew 1 tablet (81 mg total) by mouth daily. Active Vitamin D3 (VITAMIN D) 50 mcg tablet Take 1 tablet (50 mcg total) by mouth daily. Active magnesium oxide (MAG-OX) 250 MG tablet Take 2 tablets (500 mg total) by mouth daily. Active Social History Tobacco Use Types Packs/Day Years Used Date Smoking Tobacco: Former Cigarettes Smokeless Tobacco: Never Alcohol Use Standard Drinks/Week Comments Never 0 (1 standard drink = 0.6 oz pur e alcohol) Comments No Sex and Gender Information Value Date Recorded Sex Assigned at Not on file Legal Sex Female 6:43 PM CDT Gender Identity Not on file Sexual Orientation Not on file Last Filed Vital Signs Vital Sign Reading Time Taken Comments Blood Pressure 126/73 12/12/2023 11:11 AM CDT Pulse 95 12/12/2023 11:11 AM CDT Temperature 36.6 C (97.9 F) 12/12/2023 10:14 AM CDT Respiratory Rate 20 12/12/2023 11:11 AM CDT Oxygen Saturation 93% 12/12/2023 11:11 AM CDT Inhaled Oxygen Concentration - - Weight 79.4 kg (175 lb) 12/05/2023 8:10 AM CDT Height 162.6 cm (5' 4) 12/05/2023 8:10 AM CDT Body Mass Index 30.04 12/05/2023 8:10 AM CDT Plan of Treatment Health Maintenance Due Date Last Done Comments Colorectal Cancer Screening Colonoscopy (10 Years) 1953 Hepatitis C 1971 DTaP, Tdap and Td Vaccines (1 - Tdap) 1972 Mammogram Screening 1993 Zoster Vaccines (1 of 2) 2003 Annual Medicare Wellness Visit 2018 Dexa Scan (General) 2018 Pneumococcal Vaccine: 50+ Years (3 of 3 - PCV20 or PCV21) 10/06/2023 10/05/2018, 10/09/2013, 08/06/2007 COVID-19 Vaccine ( season) 2024 07/07/2023, 04/20/2022, 11/25/2021, Additional history exists RSV Immunization or 60+ Years (1 - 1-dose 75+ series) 2028 Meningococcal B Vaccine Aged Out No l onger eligible based on patient's age to complete this topic Meningococcal Vaccine Aged Out No emy ibrahima eligible based on patient's age to complete this topic RSV Immunizations Under 20 Months Aged Out No longer eligible based on patient's age to complete this topic Medical Devices Implanted Type Area Senior Mechanical Project Manager Device Identifier Shelf Expiration Date Model / Serial / Lot Tecnis 1 Piece Iol Implanted:Qty: 1 on 10/17/2023 by Shlomo Gonsales MD at [facility] Left: Eye [employer] 02/08/2026 / [id number] / Tecnis 1-Piece Iol With Tecnis Simplicity Delivery System Implanted:Qty: 1 on 12/12/2023 by Shlomo Gonsales MD at [facility] 03/08/2026 / [id number] / [facility] [address] [place] [id number] Care Teams Covering Machine Operator Helper Relationship Specialty Start Date End Date Naldo Gonzalez MD PCP - General INTERNAL MEDICINE 10/17/23
--- OUTSIDE RECORDS SUMMARY | 2024-12-25 15:57 | XMS_ITS | Data Portability ---
Author Organization [place] - [facility], Main Office Address [address] [place] [address] Care Team Providers Care Puppet Developer Name Role Phone NOLAN GONZALEZ Internal Medicine ADRIAN ALBRIGHT Computer Graphic Designer NISA LUNA Horse Racetrack Manager LISSETTE LARSEN Contact Center Consultant Assessment No assessment recorded. Plan of Treatment Reminders Order Date Submit Date Provider Last Modified By Organization Details Last Modified Time Details Appointments Any 15 2024 11:30A M Nolan Gonzalez MD Not available Not available Not available Lab vitamin D, 25-hydrox y, total, serum 2024 025 [facility] (Lab), [address] [place] [address], [id number], 12/13/2024 04:05:43 CBC w/ auto diff 2024 025 [facility] (Lab), [address] [place] [address], [id number], 12/13/2024 04:05:43 CMP, serum or plasma 2024 025 [facility] (Lab), [address] [place] [address], [id number], 12/13/2024 04:05:43 lipid panel, serum 2024 025 [facility] (Lab), [address] [place] [address], [id number], 12/10/2024 14:20:07 TSH, serum or plasma 2024 025 [facility] (Lab), [address], [place], [address], 12/13/2024 04:05:43 Referral None recorded. Procedures None recorded. Surgeries None recorded. Imaging None recorded. Medication Orders amlodipin e 5 mg tablet 2023 024 [id number], [address] [facility], [place], [place], [id number], 01/25/2024 15:12:22 Patient Targets Encounter Date Encounter Id Patient Goals Patient Target Last Modified By Organization Details Last Modified Time 01/25/2024 [id number] New glasses on Not available 01/25/2024 15:33:02 Patient Instructions Encounter Date Encounter Id Patient Instructions Last Modified By Organization Details Last Modified Time 01/25/2024 [id number] Review of meds and when to take them Not available 01/25/2024 15:33:11 Reason for Referral None Reported. Results Created Date Observation Date Name Description Value Unit Range Abnormal Flag Note LastModifiedBy Organization Detail LastModifiedTime 06/01/20 24 05/14/2024 , [facility] ardio gram No observ ation record ed. BARCODE Not Available 2023 18:19:51 Result Notes None recorded. Problems Name Problem SNOMED Code Status Onset Date Resolution Date Notes Provider Name and Address Organization Details Recorded Time Hearing loss 67704592 Active 2022 Nolan Gonzalez MD [address], [place], [address] , [facility] 3 13:12:10 Essential hypertensi on 77801118 Active 2023 ANDERSON Castellano, [facility] 5 07:56:29 Benign essential hypertensi on 5927457 Active 2024 Nolan Gonzalez MD [address], [place], [address] , [facility] 5 11:18:45 Anemia 602471281 Active 2024 Brandi Troy MA null, [facility] 5 15:11:14 Chronic obstructiv e pulmonary disease 11383501 Active Not Available [facility] 3 04:47:56 History of transient ischemic attack 269983362 Active Not Available [facility] 3 04:47:56 Insomnia 106817498 Active 2021 Not Available [facility] 3 04:47:56 Acute exacerbati on of chronic obstructiv e pulmonary disease 168602848 Completed Not Available [facility] 3 04:47:56 Genuine stress incontinen ce 72191626 Completed Not Available [facility] 3 04:47:56 Screening mammograph y Completed 202101/08/2022 Not Available [facility] 3 04:47:56 Urinary symptoms 526776069 Completed 202106/16/2022 Not Available [facility] 3 04:47:57 Adult health examinatio n Active 2021 Nolan Gonzalez MD [address] [place] [address], [address] , [facility] [employer] 3 13:12:05 Eruption 342520765 Completed Not Available [facility] 3 04:47:57 Finding of body mass index 884282703 Completed 202106/16/2022 Not Available [facility] 3 04:47:57 Hypertrigl yceridemia 626050068 Active 2022 ANDERSON Castellano null, [place] [employer] [facility] 3 07:58:49 Screening for disorder Completed 202101/08/2022 Not Available [facility] 3 04:47:57 Restless legs 15297499 Active Not Available [facility] 3 04:47:57 Vitamin D deficiency 11772965 Active Not Available [facility] 3 04:47:57 Depressive disorder 82617420 Active 2019 Not Available [facility] 3 04:47:57 Osteoarthr itis 237222633 Active 2019 Not Available [facility] 3 04:47:57 Hypothyroi dism 48998958 Active Not Available [facility] 3 04:47:57 Obesity 558557973 Active Not Available [facility] 3 04:47:58 Solitary nodule of lung 406413717 Active 2018 Not Available [facility] 3 04:47:58 Acute urinary tract infection 791182739 Completed 202106/16/2022 Not Available [facility] 3 04:47:58 Anxiety 64778272 Active Not Available [facility] 3 04:47:58 Hyperlipid emia 17983723 Active Not Available [facility] 3 04:47:58 Osteoporos is 99428045 Active 2018 Not Available [facility] 3 04:47:58 Sleep apnea 94097117 Active 2019 Not Available [facility] 3 04:47:58 Administra tion of influenza vaccine Completed 202101/08/2022 Not Available [facility] 3 04:47:58 Problem Notes None recorded. Procedures Surgical History Date Name Laterality Status Provider Name and Address Organization Details Recorded Time 4 Chronic care management services completed JB Louie Yogesh [place] [employer] [facility] 01/25/2024 15:42:31 4 Chronic care management services completed JB Louie Yogesh [employer] [facility] 12/27/2023 13:59:32 4 Chronic care management services completed JB Louie Yogesh [place] [employer] [facility] 11/22/2023 12:22:25 4 Chronic care management services completed JB Louie Yogesh [place] [employer] [facility] 11/17/2023 12:04:02 4 Medicare Wellness CPT Code, subsequent completed Tracey Khan RN [facility] [employer] [facility] 11/16/2023 12:47:26 4 Advanced Care Planning completed Tracey Khan RN [facility] [employer] [facility] 11/16/2023 12:51:06 4 Chronic care management services completed Fabricio Corbett [employer] [address] [facility], [facility] [address], [place], [address], [facility] [employer] [facility] 11/10/2023 14:33:57 4 Cataract surg w/iol 1 stage completed Lissette Larsen RN [facility] [employer] [facility] 11/22/2023 11:58:56 1 Most Recent Bone Density completed Not Available [facility] 08/18/2022 04:41:46 Tubal Ligation completed Not Available [facility] 08/18/2022 04:41:48 Bladder completed Not Available [facility] 06/2022 04:41:48 Cataract surg w/iol 1 stage completed Lissette Larsen RN [facility] [employer] [facility] 11/22/2023 11:59:22 Imaging Results None recorded. Procedure Notes None recorded. Medical Equipment None Reported. Allergies Allergen ID Allergen Name Allergen Category Reaction Reaction Severity Criticality Documentation Date Start Date Code Code System Note Provider Name and Address Organization Details Recorded Time 7021 albuterol medicatio n Not available Not available Not available 08/18/2022 435 RxNorm PALPI TATIO NS Not Available [facility] 3 04:55:32 Medications Name Sig Start [...] TABLET BY MOUTH EVERY DAY 2024 active Not Available Not Available Not Avai lable ropinirol e 1 mg tablet TAKE 1 [...] BY MOUTH EVERY DAY 2024 active SAMANTHA 12/06/24 NOV 04/24/25 ok to rf Not Available Not Available [...] BY MOUTH TWICE DAILY 2024 active SAMANTHA 12/06/24 NOV 04/24/25 ok to rf Not Available Not Available Not Available alendrona te 70 mg tablet TAKE 1 TABLET BY MOUTH 1 TIME A WEEK DIRECTED active Not Available Not Available No t Available Pyridium 200 mg tablet Take 1 [...] Not Available No t Available ropinirol e 2 mg tablet TAKE 1 TABLET BY MOUTH EVERY DAY AT BEDTIME active Not Available Not Available No t Available cephalexi n 500 mg capsule TAKE 1 CAPSULE BY MOUTH EVERY 12 HOURS FOR 5 DAYS active Not Available Not Available No t Available buspirone 10 mg tablet TAKE 1 TABLET BY MOUTH TWICE DAILY active Not Available Not Available No t Available Advair Diskus 250 mcg-50 mcg/dose powder [...] mL suspensio n for nebulizat ion INHALE 2 ML VIA NEBULIZA TION TWICE DAILY. RINSE AND SPIT AFTER USE. [...] BY MOUTH EVERY DAY 2024 active SAMANTHA 12/06/24 NOV 04/24/25 ok to rf Not Available Not Available Not Available amoxicill in 875 mg-potass ium clavulana te 125 mg tablet TAKE 1 TABLET BY MOUTH EVERY 12 HOURS 12/04 completed Not Available Not Available Not Available [...] Not Available No t Available Fluzone High-Dose 2018- (PF) 180 mcg/0.5 mL intramusc ular syringe ADMINIST ER 0.5ML IN THE MUSCLE DIRECTED 06/22 completed Not Available Not Available Not Available Vitals Date Recorded Body height Body mass index (BMI) Body weight Respiratory rate Body temperature Oxygen saturation Oxygen saturation in Arterial blood by Pulse oximetry Heart rate Systolic And Diastolic Provider Name and Address Organization Details Last Updated DateTime 5 162.56 cm 30.9 kg/m2 73184.2 7 g 19 /min 98.1 [degF] 95 % 95 % 93 /min 128/78 mm[Hg] Jing Bergeron [facility] 5 11:14:56 Date Recorded Body weight Body mass index (BMI) Body height Body temperature Heart rate Oxygen saturation Oxygen saturation in Arterial blood by Pulse oximetry Inhaled oxygen flow rate Systolic And Diastolic Provider Name and Address Organization Details Last Updated DateTime 4 26177.0 7 g 29.9 kg/m2 162.56 cm 97.5 [degF] 94 /min 93 % 93 % 4 L/min 110/70 mm[Hg] ANDERSON Hernandez [facility] 4 12:39:59 Date Recorded Body height Body mass index (BMI) Body weight Heart rate Body height Heart rate Body mass index (BMI) Body weight Systolic And Diastolic Systolic And Diastolic Provider Name and Address Organization Details Last Updated DateTime 4 162.56 cm 29.9 kg/m2 62663.0 7 g 94 /min 162.56 cm 94 /min 29.9 kg/m2 86868.0 7 g 110/70 mm[Hg] 110/70 mm[Hg] Lissette Larsen RN [facility] 4 13:52:26 Date Recorded Body height Heart rate Systolic And Diastolic Provider Name and Address Organization Details Last Updated DateTime 01/25/2024 162.56 cm 85 /min 130/74 mm[Hg] Lissette Larsen RN [facility] 01/25/2024 15:09:56 Date Recorded Body height Body mass index (BMI) Body weight Body temperature Heart rate Oxygen saturation Oxygen saturation in Arterial blood by Pulse oximetry Inhaled oxygen flow rate Systolic And Diastolic Provider Name and Address Organization Details Last Updated DateTime 4 162.56 cm 30.2 kg/m2 92195.2 6 g 98 [degF] 89 /min 96 % 96 % 4 L/min 120/74 mm[Hg] Becki Winters ANDERSON smith [facility] [employer] [facility] 12:46:11 Social History Question Answer Notes LastModified by Organization Details LastModified Time Tobacco Smoking Status Former Smoker 2004 Lavern ramirez, [facility] [employer] [facility] 06/09/2023 12:16:07 Do You Have An Advance Directive? No Info Given [email or web address] Information not available 11/16/2023 Are You Blind Or Do You Have Difficulty Seeing? No Information not available 06/09/2023 Is Blood Transfusion Acceptable In An Emergency? Yes Information not available 11/22/2023 What Is Your Level Of Caffeine Consumption? Moderate [id number] [id number] Information not available 08/18/2022 How Much Tobacco Do You Chew? None MIGRATION.[id number] [id number] Information not available 08/18/2022 In The 14 [...] Serious Difficulty Hearing? Yes Has Hearing Aids [email or web address] Information not available 11/16/2023 What Type Of Diet Are You Following? CARDIAC MIGRATION.0301 [id number] Information not available 08/18/2022 Which Illicit Or Recreational Drugs Have You Used? None Information not available 06/09/2023 Have There Been Any Changes To Your Family Or Social Situation? No [email or web address] Information not available 11/16/2023 What Is The Fluoride Status Of Your Home? Unknown Information not available 06/09/2023 When Did You Quit Smoking? 11-15yearssincelas tcigarette Information not available 06/09/2023 Are There Any Guns Present In Your Home? No Information not available 06/09/2023 Do You Use Insect Repellent Routinely? No Information not available 06/09/2023 Where Do You Live? SingleLevelHouse [email or web address] Information not available 11/16/2023 Advance Directive- Providers Has Reviewed Directive And Consents To Follow Them (insert Provider Name With Any Objectives In Notes Field) No Pt Will Get This Done At December Appt Information not available 11/22/2023 Are You Able To Care For Yourself? No [email or web address] Information not available 11/16/2023 Are You Deaf Or Do You Have Serious Difficulty Hearing? Yes [email or web address] Information not available 11/16/2023 General Stress Level? Moderate Information not available 11/22/2023 Live Alone Of With Others? With Others [email or web address] Information not available 11/16/2023 Do You Have A Medical Power Of Operations Assistant? No [email or web address] Information not available 11/16/2023 What Was The Date Of Your Most Recent Tobacco Screening? 11/16/2023 [email or web address] Information not available 11/16/2023 Do You Have Any Pets? Yes [email or web address] Information not available 11/16/2023 What Is Your Relationship Status? MIGRATION.0301 [id number] Information not available 08/18/2022 Do You Use [...] Much Tobacco Do You Smoke? No MIGRATION.0301 [id number] Information not available 08/18/2022 Do You Use [...] your level of alcohol consumption? None MIGRATION.0301 [id number] Information not available 08/18/2022 Do you have [...] 06/09/2023 What is your exercise level? None [email or web address] Information not available 11/16/2023 Mental Status Question Answer Note LastModified by Organizat ion Details LastModified Time Do you feel stressed (tense, restless, nervous, or anxious, or unable to sleep at night)? [id number] Information not available 06/09/2023 Do you have difficulty concentrating, remembering or making decisions? No Information no t available 06/09/2023 Family History Relationship Description Onset Age of this Age Resolved Age Notes LastModified by Organization Details LastModified Time Mother Essential hypertension [id number].617 [id number] Not available 08/18/2022 04:41:52 Brother Essential hypertension [id number].049 [id number] Not available 08/18/2022 04:41:52 Father Essential hypertension MIGRATION.795 [id number] Not available 08/18/2022 04:41:52 Son Malignant neoplastic disease MIGRATION.444 [id number] Not available 08/18/2022 04:41:52 Daughter Malignant neoplastic disease [id number].262 [id number] Not available 08/18/2022 04:41:52 Medical History Condition Response BLADDER PROBLEMS Y LUNG DISEASE/DISORDER Y COPD Y MUMPS Y SHINGLES N STROKE/TIA Y Do you have Advance directive? N CATARACTS Y HYPERTENSION Y ANXIETY DISORDER Y CHICKENPOX Y HIGH CHOLESTEROL / HYPERLIPIDEMIA Y HYPOTHYROIDISM Y OSTEOPOROSIS Y HEARTBURN / REFLUX Y Gynecological History Statement/Question Response Date of Last Mammogram 04/01/2021 Date of Last Colonoscopy Most Recent Bone Density 05/22/2021 Obstetrics History GPAL:G 0 P 0 0 0 0 Immunizations Vaccine Type Date Status Note Provider Nam e and Address Organization Details Recorded Time Influenza, adjuvanted, quadrivalent, PF 2 completed Lissette Larsen RN null, [facility] [employer] [facility] 01/25/2024 15:10:35 COVID-19, mRNA, LNP-S, PF, 30 mcg/0.3 mL dose 1 completed JB Louie, [facility] [employer] [facility] 01/25/2024 15:10:35 COVID-19, mRNA, LNP-S, PF, 30 mcg/0.3 mL dose, chelo-sucrose 2 completed JB Louie, [facility] [employer] [facility] 01/25/2024 15:10:35 COVID-19, mRNA, LNP-S, bivalent, PF, 30 mcg/0.3 mL dose 2 completed JB Louie, [facility] [employer] [facility] 01/25/2024 15:10:35 Influenza, high-dose, trivalent, PF 9 completed Lissette Larsen RN null, [facility] [employer] [facility] 01/25/2024 15:10:35 Influenza, split virus, trivalent, preservative 2 completed JB Louie, [facility] [employer] [facility] 01/25/2024 15:10:35 Influenza, split virus, trivalent, preservative 3 completed JB Louie, [facility] [employer] [facility] 01/25/2024 15:10:35 Influenza, split virus, trivalent, PF 5 completed Lissette Larsen RN null, [facility] 01/25/2024 15:10:35 Influenza, split virus, trivalent, PF 4 completed Lissette Larsen RN null, [facility] 01/25/2024 15:10:35 Influenza, split virus, quadrivalent, PF 8 completed Lissette Larsen RN null, [facility] 01/25/2024 15:10:35 COVID-19, mRNA, LNP-S, PF, 30 mcg/0.3 mL dose 1 completed Lissette Larsen RN null, [facility] 01/25/2024 15:10:35 COVID-19, mRNA, LNP-S, PF, 30 mcg/0.3 mL dose 1 completed Lissette Larsen RN null, [facility] 01/25/2024 15:10:35 Influenza, high-dose, trivalent, PF 5 completed Lissette Larsen RN null, [facility] 01/25/2024 15:10:35 Influenza, high-dose, trivalent, PF 3 completed Lissette Larsen RN null, [facility] 01/25/2024 15:10:35 Influenza, high-dose, trivalent, PF 1 completed Lissette Larsen RN null, [facility] 01/25/2024 15:10:35 COVID-19, mRNA, LNP-S, PF, 100 mcg/0.5mL dose or 50 mcg/0.25mL dose 2 completed Kalexaanum Larsen RN null, [facility] 01/25/2024 15:10:35 COVID-19, mRNA, LNP-S, PF, 100 mcg/0.5mL dose or 50 mcg/0.25mL dose 1 completed Lissette Larsen RN null, [facility] 01/25/2024 15:10:35 Influenza, split virus, quadrivalent, preservative 9 completed Lissette Larsen RN null, [facility] 01/25/2024 15:10:35 Influenza, high-dose, trivalent, PF 0 completed Lissette Larsen RN null, [facility] 01/25/2024 15:10:35 pneumococcal polysaccharide PPV23 8 completed Not Available [facility] 08/18/2022 04:55:22 Influenza, high-dose, quadrivalent, PF 1 completed Not Available [facility] 08/18/2022 04:55:22 Influenza, split virus, quadrivalent, preservative 6 completed Not Available [facility] 08/18/2022 04:55:22 Pneumococcal conjugate PCV 13 9 completed Not Available [facility] 08/18/2022 04:55:22 pneumococcal polysaccharide PPV23 4 completed Not Available [facility] 08/18/2022 04:55:22 Influenza, high-dose, quadrivalent, PF 3 completed Nolan Gonzalez MD [address] [place] [address], [address], [facility] 06/09/2023 13:09:19 Past Encounters Encounter ID Performer Location Encounter Start Date Encounter Closed Date Diagnosis/Indication Diagnosis SNOMED-CT Code Diagnosis ICD10 Code Diagnosis Note [id number] MD ANGUS Marion[facility] [address] [place] [address] 11/13/2020 00:00:00 11/13/2020 13:03:07 [id number] MD ANGUS Marion_L[facility] Internal Med [facility] [address] [facility] [place] [address] 03/19/2021 00:00:00 03/19/2021 13:32:43 [id number] MD ANGUS [facility] [address] [facility] [place] [address] 08/11/2021 00:00:00 08/11/2021 12:59:14 [id number] Nolan Gonzalez MD [facility] [address] [facility] [place] [address] 01/14/2022 00:00:00 01/14/2022 12:18:04 [id number] Nolan Gonzalez MD [facility] [address] [facility] [place] [address] 06/22/2022 00:00:00 06/22/2022 13:23:15 [id number] Nolan Gonzalez MD [facility] [address] [facility] [place] [address] 11/25/2022 11:20:07 11/25/2022 12:15:51 Benign essential hypertension 4093254 I10 under control Osteoporosis 07494566 M8 1.0 on meds, Dexa 06/09 Anxiety 66675038 F41.9 meds help Depressive disorder 3548 9007 F32.9 stable with meds Hypothyroidism 24223083 E03.9 stable Hyperlipidemia 39065444 E78.5 stable Osteoarthritis 227718856 M19.90 under control Restless legs 55283229 G 25.81 better with meds Sleep apnea 76093873 G47 .30 On CPAP Chronic ob structive pulmonary disease 34376422 J44.9 stable Vitamin D deficiency 347 65502 E55.9 on OTC Insomnia 087120417 G47.0 0 better Hypertriglyceridemia 302 173860 E78.1 advised to lose weight watch and diet Adult [facility] th examination 738824507 Z00.00 Colonoscop y 04/03 at [facility] - report requested and no records was foundDexa- 05/2021Mam mo- 07/2022LDCT -01/2021, pulm nodulePneu movax 2007 and 2013Prevna r 09/2018FLU 2021 (Caesar )COVID- 08/20/20, 09/10/20, 04/05/21, 11/25/21 Hearing loss 64807336 H9 1.93 Long-term drug therapy 015369017 Z79.736 [id number] Nolan Gonzalez MD [facility] [address] [facility] [place] [address] 06/09/2023 12:15:54 06/09/2023 13:11:44 Benign essential hypertension 7159664 I10 not under control Osteoporosis 44874116 M8 1.0 on meds, Dexa next time Anxiety 87152202 F41.9 meds help Depressive disorder 3548 9007 F32.9 stable with meds Hypothyroidism 24825179 E03.9 stable Hyperlipidemia 05080820 E78.5 stable Osteoarthritis 679434591 M19.90 under control Restless legs 60322785 G 25.81 better with meds Sleep apnea 37291451 G47 .30 On CPAP Chronic ob structive pulmonary disease 67929377 J44.9 stable Vitamin D deficiency 347 84583 E55.9 on OTC Insomnia 519544910 G47.0 0 better Hypertriglyceridemia 302 719072 E78.1 advised to lose weight watch and diet Adult [facility] th examination 317531204 Z00.00 Colonoscop y 04/03 at [facility] - report requested and no records was foundDexa- 05/2021Mam mo- 07/2022LDCT -01/2021, pulm nodulePneu movax 2007 and 2013Prevna r 09/2018FLU - 06/09/2023 COVID- 08/20/20, 09/10/20, 04/05/21, 11/25/21 Administra tion of influenza vaccine 12597485 Z23 [id number] Nolan Gonzalez MD [facility] [address] [facility] [place] [address] 08/24/2023 11:30:53 08/24/2023 12:35:24 Pre-surgery evaluation 896073723 Z01.818 no restrictio n Chronic ob structive pulmonary disease 14958449 J44.9 stable Essential hypertension 67091621 I10 under control [id number] Nolan Gonzalez MD [facility] [address] [facility] [place] [address] 09/30/2023 14:26:45 09/30/2023 15:19:10 Adult health examination 669717961 Z00.00 here for surgical clearancem ads reviewedec ho done at [facility] yesterday is reviewed and copy scanned to [...] about coughing during the procedure Essential hypertension 79397678 I10 Hyperlipidemia 88608602 E78.5 Chronic ob structive pulmonary disease 42994271 J44.9 Hypothyroidism [id number] E03.[id number] [facility] Internal Med [facility] [address] [facility] [place] [address] 11/10/2023 13:45:55 11/10/2023 17:01:47 [id number] MD [facility] Internal Med [facility] [address] [facility] [place] [address] 11/16/2023 12:04:43 11/16/2023 12:46:03 Benign essential hypertension 6704454 I10 add amlodipine Osteoporosis 63618167 M8 1.0 on meds, Anxiety 76368821 F41.9 meds help Depressive disorder 3548 9007 F32.9 stable with meds Hypothyroidism 15005216 E03.9 stable Hyperlipidemia 48012073 E78.5 stable Osteoarthritis 550391716 M19.90 under control Restless legs 80556428 G 25.81 better with meds Sleep apnea 21449056 G47 .30 On CPAP Chronic ob structive pulmonary disease 20910453 J44.9 stable Vitamin D deficiency 347 39393 E55.9 on OTC Insomnia 948000178 G47.0 0 better Hypertriglyceridemia 302 322842 E78.1 advised to lose weight watch and diet Adult heal th examination 203637717 Z00.00 Colonoscop y 04/03 at [facility] - report requested and no records was foundDexa- 08/13Mammo- 09/07/2023 LDCT-08/20 21, pulm nodulePneu movax 2007 and 2013Prevna r 09/2018FLU - 06/09/2023 COVID- 08/20/20, 09/10/20, 04/05/21, 11/25/21 Screening for disorder 617490832 Z13.9 [id number] Nolan Gonzalez MD [facility] [place] [address] [facility] [place] [address] 11/17/2023 11:59:21 02/27/2024 17:59:27 Chronic obstructive pulmonary disease 87515976 J44.9 Benign ess ential hypertension 4217691 I10 Anxiety 04901670 F41.9 Osteoporosis 30681734 M8 1.0 [id number] Nolan Gonzalez MD [facility] [place] [address] [place] [address] 11/22/2023 11:24:37 02/27/2024 18:27:14 Benign essential hypertension 0347925 I10 Chronic ob structive pulmonary disease 55844545 J44.9 Anxiety 88641643 F41.9 Osteoporosis 66897277 M8 1.0 [id number] [address] Gonzalez MD [facility] Internal [address] [place] [address] 12/26/2023 12:12:28 12/26/2023 12:46:57 Benign essential hypertension 6844913 I10 much better [id number] Nolan Gonzalez MD [facility] Internal [address] [address] 12/27/2023 13:51:05 02/29/2024 18:01:39 Benign essential hypertension 9114967 I10 Chronic ob structive pulmonary disease 85489254 J44.9 Anxiety 47431124 F41.9 [id number] MD [facility] Internal Med [address] [place] [address] 01/25/2024 15:07:20 03/06/2024 13:09:37 Benign essential hypertension 1047148 I10 Chronic ob structive pulmonary disease 78191409 J44.9 Anxiety 05335844 F41.9 Osteoporosis 06842428 M8 1.0 [id number] Nolan Gonzalez MD [facility] [place] [address] [place] [address] 04/12/2024 12:22:32 04/12/2024 13:51:19 Benign essential hypertension 8357979 I10 better with addition of amlodipine Osteoporosis 28863034 M8 1.0 on meds, Anxiety 34054411 F41.9 under control Depressive disorder 3548 9007 F32.9 stable with meds Hypothyroidism 63619589 E03.9 stable with meds Hyperlipidemia 18453659 E78.5 under control Osteoarthritis 596918521 M19.90 under control Restless legs 94130374 G 25.81 better with meds Sleep apnea 71156479 G47 .30 On CPAP Chronic ob structive pulmonary disease 55523428 J44.9 stable Vitamin D deficiency 347 79791 E55.9 treated, now on OTC Insomnia 703413974 G47.0 0 better with meds Hypertriglyceridemia 302 334089 E78.1 advised to lose weight watch and diet Adult heal th examination 691771690 Z00.00 Colonoscop y 04/03 at [facility] - report requested and no records was foundDexa- 08/13Mammo- 09/07/2023 LDCT-02/06 21, pulm nodule , no nodule on CT 02/08Pneumo vax 2007 and 2013Prevna r 09/2018 , [place] VID- 08/20/20, 09/10/20, 04/05/21, 11/25/21, 02/2024 [id number] Nolan Gonzalez MD [facility] [place] [address] [place] [address] 12/06/2024 11:01:55 12/06/2024 12:31:35 Benign essential hypertension 1452408 I10 under control Osteoporosis 70830436 M8 1.0 on meds, Anxiety 32049070 F41.9 under control Depressive disorder 3548 9007 F32.9 stable with meds Hypothyroidism 97068047 E03.9 stable with meds Hyperlipidemia 17573144 E78.5 under control Osteoarthritis 552356980 M19.90 under control Restless legs 11195173 G 25.81 better with meds Sleep apnea 66081818 G47 .30 On CPAP Chronic ob structive pulmonary disease 43071358 J44.9 stable Vitamin D deficiency 347 10753 E55.9 treated, on OTC Insomnia 327271019 G47.0 0 better with meds Hypertriglyceridemia 302 049958 E78.1 advised to lose weight watch and diet Adult heal th examination 538361984 Z00.00 Colonoscop y 04/03 at [facility] - report requested and no records was foundDexa- 08/13Mammo- 09/07/2023 , already scheduledL DCT-, pulm nodule , no nodule on CT 02/08, DOES NOT QUALIFY ANY MOREPneumo vax 2007 and 2013Prevna r 09/2018 , [place]20[place]- [place] VID- 08/20/20, 09/10/20, 04/05/21, 11/25/21, 02/2024 Goals Section Goal Description Progress Status Start Date LastModified by Organization Details LastModified Time Heart Healthy Diet Maintain a low sodium and low fat diet, restricting artificial sweetener use NoCjero active 2023 Lissette Larsen RN Information not available 01/25/2024 19:36:29 Coping with Anxiety Patient verbalizes strategies for coping with anxiety NoChange active 2023 Lissette Larsen RN Information not available 01/25/2024 19:34:39 Blood Pressure Maintains blood pressure goal as defined by care team Progressing active 2023 Lissette Larsen RN Information not available 01/25/2024 19:35:31 Stress Manageme nt Reports effective management of stress NoCsae[facility] active 2023 Lissette Larsen RN Information [...] care pathway as dictated by provider team [facility] Lissette Larsen RN Information not available 11/16/2023 15:09:44 Respirat ory Health Patient is free from signs and symptoms of respiratory distress [facility]Change active 2023 Lissette Larsen RN Information not available 11/16/2023 15:09:44 Managing Anxiety Patient demonstrates increased interest in diversional activities [facility] Lissette Larsen RN Information not available 11/16/2023 15:08:43 Pain Manageme nt Plan Reports satisfaction with current pain management plan (e.g., medication and non-medication pain relief interventions) [facility] Lissette Larsen RN Information not available 11/17/2023 16:02:33 Stress Manageme nt Reports effective management of stress Progressing active 2023 Lissette Larsen RN Information not available 12/27/2023 17:34:09 Quality of Life Reports satisfaction with quality of life Progressing active 2023 Lissette Larsen RN Information not available 12/27/2023 17:34:12 Recreati onal Activiti es Participates in recreational activities [facility] Lissette Larsen RN Information not available 11/22/2023 16:11:35 Exercise Regularl y Follows a regular exercise regimen or instructed exercise plan as per care team recommendation (s) [facility] Lissette Larsen RN Information not available 11/22/2023 16:11:35 Activiti es of Daily Living Performs activities of daily living independently or with minimal assistance [facility]23 Lissette Larsen RN Information [...] appointment(s) as per care team recommendation (s) [facility] 2023 Lissette Larsen RN Information not available 11/22/2023 16:11:35 Adequate Housing Conditio ns Maintains adequate housing with satisfactory living conditions NoChange active 2023 Lissette Larsen RN Information not available 11/22/2023 16:11:35 Effectiv e Coping Manages life events with effective coping methods Progressing active 2023 Lissette Larsen RN Information not available 12/27/2023 17:34:22 Family and Social Support Reports family and/or social support needs are met NoChange active 2023 Lissette Larsen RN Information not available 11/22/2023 16:11:35 Food Security Reports ability to access and obtain foods to meet nutritional needs NoChange active 2023 Lissette Larsen RN Information not available 11/22/2023 16:11:36 Diet Adherenc e Follows prescribed or recommended diet [facility] 2023 Lissette Larsen RN Information not available 11/22/2023 16:11:36 Knowledg e of Disease or Conditio n Demonstrates understanding of disease(s) or condition(s) NoChange active 2023 Lissette Larsen RN Information not available 11/22/2023 16:11:36 Smoking Cessatio n Quits smoking NoChange active 2023 Lissette Larsen RN Information not available 11/22/2023 16:11:36 Symptom Manageme nt Demonstrates ability to manage and/or control symptoms No[facility] active 2023 Lissette Larsen RN Information not available 11/22/2023 16:11:36 Financia l Stabilit y Reports financial status and/or income meets needs NoChange active 2023 Lissette Larsen RN Information not available 11/22/2023 16:11:36 Chronic Conditio n Action Plan Follows action plan for any worsening of chronic condition(s) as per care team recommendation (s) [facility] active 2023 Lissette Larsen RN Information not available 12/27/2023 15:53:54 Lipid Levels Maintains normal lipid levels as defined by care team Letitia active 2023 Lissette Larsen RN Information not available 11/22/2023 16:11:37 Blood Pressure Maintains blood pressure goal as defined by care team Progressing active 2023 Lissette Larsen RN Information not available 12/27/2023 17:35:10 Weight Mainaiden nce Exhibits stable weight with normal fluctuation [facility] active 2023 Lissette Larsen RN Information not available 11/22/2023 16:11:37 Mobility Maintains or improves baseline mobility and/or moves independently [facility] Lissette Larsen RN Information [...] consumption as per care team recommendation (s) [facility] active 2023 Lissette Larsen RN Information not available 11/22/2023 16:11:38 Home/Env ironment Safety Reports having a safe environment that promotes independence and prevents injury [facility] active 2023 Lissette Larsen RN Information not available 11/22/2023 16:11:38 Strength and Conditio baljeet Achieves improved strength and conditioning as defined by care team Letitia active 2023 Lissette Larsen RN Information not available 11/22/2023 16:11:38 Fall Safety Reports no recent falls and/or fall injuries NoChange active 2023 Lissette Larsen RN Information not available 11/22/2023 16:11:38 Assistiv e/Adapti ve Devices Uses assistive/adap tive devices properly and safely as per care team recommendation (s) NoChange active 2023 Lissette Larsen RN Information [...] LastModified by Organization Detai ls LastModified Time General health good Not Available Not Available Not Av ailable Concern Status LastModified by Organization Details LastModified Time Chronic obstructive lung disease Active Lissette Larsen RN Not Available 11/16/2023 1 5:09:44 Anxiety Active Lissette Larsen RN Not Available 15:08:43 Osteoporosis Active Lissette Larsen RN Not Available 11/17/2023 16:02:33 Benign essential hypertension Active Lissette Larsen RN Not Available 12/27/2023 1 5:53:54 Advance Directives Directive N: Info given Payers Insurance Date Sequence Insurance Name Policy Number Policy Melchor Covered Member ID Melchor Member ID Guarantor Name 12/06/2024 1 [facility] (MEDICARE REPLACEMENT/ ADVANTAGE - PPO) [id number] Diamante Castro [id number] Diamante Castro 12/06/2024 2 [place] Diamante Castro [id number] Diamante A Standefer Notes Date Note Type Note Provider Name and Address Organization Details Recorded Time 12/26/2023 text/html Pt is here today for a 1 month follow up.Last month her b/p was 162/88 and Amlodipine 5mg was addedToday her b/p is 110/70.No complaints, no cp or sob Nolan Gonzalez MD [address], [place], [address], [place] Brown 12/26/2023 12:46:15 12/27/2023 text/html BP stable, Pt is A [employer], vision improved, COPD stable Therese ramirez, [place] 02/29/2024 18:01:35 01/25/2024 text/html Pt doing well, t kallie she has HAM from the Cataracts surgery. She is getting her new glasses on Therese ramirez, [place] Brown 03/06/2024 13:06:01 04/12/2024 text/html Pt is here [...] stress test 05/2019 Nolan Gonzalez MD [address] [facility], [facility] [address], [place], [address], [facility] 04/12/2024 13:11:41 12/06/2024 text/html Pt is here today for her routine follow up, She is compliant to all her medsPT IS FASTING Has hearing aids Had Cataract surgery on her left eye and is scheduled to have HTN- under controlMeds- Lisinopril 20mg bid, amlodipine 5 mg qd COPD is better with inhalers, spiriva and Advair was stopped in the past due to vomiting ,some times gets sob when weather changes, seeing Dr. Gerber, had PFT's.she is on o2 , usually 3.5 L while sitting and 4 L on walking.Meds- Trelegy Ellipta 1 puff daily, Levalbuterol 1.25mg/3ML for nebulizer, Ventolin inhaler as needed, o2, DalirespEx smoker-Last CT- chest- 01/2022 in chart, benign, quit smokig in 2004, DOES NOT QUALIFY FOR LDCT any moreAnxiety and depression- mood is better,Meds- Citalopram 40 mg daily, Bupropion 100 mg BID , BupropionSleep apnea- on cpap, compliant, some times feels like too much pressure and has discussed it with her sleep specialist Obesity- advised to lose more ,Hypothyroidism- On meds, labs dueMeds- Levothyroxine 112 mcg dailyOveractive bladder- better with [...] stress test 05/2019 Nolan Gonzalez MD [address] [facility], [facility] [address], [place], [address], [place] [facility] [employer] 12/06/2024 11:31:36 OBGyn Episode No OBEpisode recorded.
== END 2024-12-25 15:54 | disposition home or self-care (01) ==
LOC: ANHIMG 15:55
PROVIDERS: PCP Internal Medicine; Visit Provider Internal Medicine
DX: Z12.31 Encounter for screening mammogram for malignant neoplasm of breast (principal)
CPT/HCPCS: 77063; 77067

== ENCOUNTER 2025-03-03 05:00 | Inpatient (IN) | payer MEDICARE, MEDICAID, SELFPAY ==
[2025-03-03] VITALS (26 sets, daily range): BP systolic 100–142; BP diastolic 39–92; PULSE 88–103; RESP 14–26; TEMP 36.3–37; O2SAT 90–99; BMI 32.1
--- NOTE | ~2025-03-03 | CT_ITS ---
EXAMINATION: CT chest abdomen wo con DATE: 03/03/2025 05:31 INDICATION: Chest pain. TECHNIQUE: Computed tomography (CT) of the chest and abdomen was performed without intravenous contrast. Automated exposure control and iterative reconstruction technique were employed. The dose-length product was 981.86 mGy-cm. COMPARISON: CT abdomen and pelvis 06/02/2023 FINDINGS: CHEST CT: There is severe emphysema. There is mild atelectasis bilaterally. Calcified pulmonary nodules are consistent with old granulomatous disease. No pleural effusion. The heart size is normal. There are coronary artery calcifications. No pericardial effusion. There is a moderate-sized sliding hernia. There is a nondisplaced comminuted fracture of the sternum. There is severe thoracic spondylosis. ABDOMEN CT: There is an 11 mm cyst in the liver. The gallbladder, spleen, pancreas, and adrenal glands are normal. There is cortical thinning of the kidneys. There is no urolithiasis. There is diverticulosis of the colon without evidence of diverticulitis. There are no dilated loops of bowel. The appendix is not v isualized. There are no pathologically enlarged lymph nodes. There is no free intraperitoneal fluid. There is severe lumbar spondylosis. IMPRESSION: 1. Nondisplaced comminuted fracture of the sternum. 2. Severe emphysema. 3. Moderate-sized sliding hiatal hernia. Reviewed, dictated and finalized at location K.
--- NOTE | 2025-03-03 05:01 | ECG_ITS ---
Test Date: 2025-03-03 05:04:29 Measurements Intervals [place] Rate: 97 P: 64 ND: 135 QRS: 35 QRSD: 86 T: 36 QT: 334 QTc: 424 Interpretive Statements SINUS RHYTHM LOW QRS VOLTAGE IN PRECORDIAL LEADS [QRS DEFLECTION < 1.0 mV IN CHEST LEADS] MINIMAL ST DEPRESSION [0.025+ mV ST DEPRESSION] ARTIFACT LIMITS INTERPRETATION ABNORMAL ECG No previous ECG available for comparison Electronically Signed On 03-03-2025 09:48:30 CDT by Rafy Goodman M.D.
--- NOTE | 2025-03-03 05:09 | PC.NURSE ---
4L via [place] is pt baseline O2.
[2025-03-03 05:36] LABS: Hematocrit 31.8 % (37.0-47.0); Hemoglobin 8.6 g/dL (12.0-15.0); Immature Granulocyte Percent A 0.7 % (0-0.5); Lymphocytes Absolute Auto 1.51 K/mm3 (0.9-3.2); Mean Corpuscular HGB Conc 27.0 g/dl (32-36); Mean Corpuscular Hemoglobin 20.1 pg (26-34); Mean Corpuscular Volume 74.5 fl (80-100); Nucleated Red Blood Cells Absolute Auto 0.000 K/mm3 (0.0-0.012); Nucleated Red Blood Cells Perc 0.0 % (0.0-0.2); Platelet Count Result 407 k/mm3 (150-375); Red Blood Count 4.27 M/mm3 (4.2-5.4); White Blood Count 14.4 K/mm3 (4.5-10.0)
[2025-03-03] MEDS: MORPHINE SULFATE (*CRX) 4 MG/ML INJ IV PUSH (05:41)
[2025-03-03] MEDS: ONDANSETRON INJ 4 MG/2 ML VIAL IV PUSH ×2 (05:41→13:23)
[2025-03-03 05:49] LABS: Alanine Aminotransferase 17 U/L (6-35); Albumin Level 4.0 g/dL (3.5-5.1); Alkaline Phosphatase 132 U/L (38-126); Anion Gap 5 mmol/L (4-12); Aspartate Amino Transferase 24 U/L (14-36); Bilirubin,Total 0.3 mg/dL (0.2-1.3); Blood Urea Nitrogen 12 mg/dL (7-17); Calcium 9.4 mg/dL (8.4-10.2); Carbon Dioxide 29 mmol/L (22-30); Chloride 102 mmol/L (98-107); Estimated CRCL calculation 52 ml/min; Estimated Glomerular Filt Rate > 60; Glucose 113 mg/dL (65-110); Lipase 33 U/L (23-300); Potassium 4.0 mmol/L (3.4-5.0); Sodium 136 mmol/L (137-145); Total Protein 7.0 g/dL (6.3-8.2)
[2025-03-03 05:53] LABS: INR 1.0; Prothrombin Time 13.1 Seconds (11.1-14.7)
[2025-03-03 05:54] LABS: Partial Thromboplastin Time 27.2 Seconds (22.3-36.8)
[2025-03-03 05:59] LABS: Anisocytosis 1+
[2025-03-03 06:00] LABS: Hypochromasia 1+; Microcytosis 1+ (NORMAL); Poikilocytosis 1+; Target Cells Occasional; Troponin I < 0.012 ng/mL (0.000-0.034)
[2025-03-03 06:01] LABS: Ovalocytes 2+; Schistocytes None Seen
[2025-03-03] MEDS: MORPHINE SULFATE (*CRX) 2 MG/ML INJ IV PUSH (06:58)
--- NOTE | 2025-03-03 07:13 | ED.FALL ---
HPI - Fall General Chief Complaint: Fall Stated Complaint: CP ON INSPIRATION S/P ROLLING OUT OFBED ONTO CHEST Time Seen by Provider: 03/03/25 07:04 Source: patient, family and RN notes reviewed Mode of arrival: EMS Limitations: no limitations History of Present Illness HPI Narrative: Patient presents after an accidental fall out of bed. She was seated at the end of the bed and fell asleep sitting up and rolled out of the bed landing on her chest. She now has chest pain on inspiration. She has a history of COPD/emphysema for which she is chronically on 4 L supplemental oxygen via nasal cannula. EMS reported that she was 80% on the settings upon their arrival with wheezes on auscultation. Patient is concerned she has broken ribs. EMS administered a DuoNeb. She states she heard a pop. She received no pain medications prior to arrival but overnight ED doctor had ordered 2 doses of analgesic medication. Family member with her notes that ironically her oxygenation is maintained after her doses of morphine but it seems like when the morphine doses wear off is when her SpO2 goes down. She has not recently been on steroids, it is been approximately 1 year since oral steroids. Her pain is at the front of her chest/sternum as well as on the right, at breast line. She has both a primary care physician, Dr. Felder in [place], and veneer sample maker Abdelrahman Melendrez. Related Data Home Medications ?Medication ?Instructions ?Recorded ?Confirmed ?Last Taken ?Type aspirin 81 mg tablet,delayed 81 mg PO DAILY 05/09/19 02/27/25 Unknown History release (Adult Low Dose Aspirin) atorvastatin 20 mg tablet 20 mg PO DAILY 05/09/19 02/27/25 Unknown History bupropion HCl 100 mg tablet 100 mg PO BID 05/09/19 02/27/25 Unknown History cetirizine 10 mg tablet (Zyrtec) 5 mg PO DAILY PRN allergy symptoms 05/09/19 02/27/25 Unknown History citalopram 40 mg tablet 20 mg PO BID 05/09/19 02/27/25 Unknown History levothyroxine 112 mcg tablet 112 mcg PO DAILY 05/09/19 02/27/25 Unknown History omeprazole magnesium 20 mg 20 mg PO DAILY 05/09/19 02/27/25 Unknown History capsule,delayed release tolterodine 4 mg capsule,extended 4 mg PO DAILY 05/09/19 02/27/25 Unknown History release 24 hr pramipexole 1 mg tablet 1 mg PO TID 07/13/21 02/27/25 Unknown History trazodone 100 mg tablet 100 mg PO QHS PRN sleep 07/13/21 02/27/25 Unknown History alendronate 70 mg tablet 70 mg PO WEEKLY 02/02/23 02/27/25 02/14/25 History lisinopril 20 mg tablet 20 mg PO BID 09/14/23 02/27/25 Unknown History amlodipine 5 mg tablet 5 mg PO DAILY 03/15/24 02/27/25 Unknown History buspirone 10 mg tablet 10 mg PO BID 03/15/24 02/27/25 Unknown History ensifentrine 3 mg/2.5 mL 2.5 ml inhalation QAM AND QPM 02/27/25 02/27/25 Unknown History suspension for nebulization (Ohtuvayre) Allergies Allergy/AdvReac Type Severity Reaction Status Date / Time albuterol Allergy Mild Palpitation Verified 02/27/25 09:38 s PMFSH Past Medical History Medical History Supplemental oxygen dependent COPD with emphysema Surgical History Surgical History Bladder polyps Tonsillectomy planned Family History Family History Sibling Hypertension Grandparent Hypertension Mother Hypertension Father Hypertension Asthma Daughter Brain injury Malignant neoplastic disease Social History Social History Smoking packs per day: 2 Smoking cigarettes per day: 40.0 Years smoked: 33 Smoking pack-years: 66.00 Smoking status: Former smoker Tobacco type: cigarettes Smoking end date: 06/20/05 Alcohol intake: current Living arrangements: with family Spiritual care concerns: No Exam Narrative: GENERAL: Well-appearing, well-nourished, HEAD: Normocephalic, atraumatic. EYES: Non injected, non icteric ENT: Nares clear, no rhinorrhea or epistaxis. Gross auditory acuity intact. NECK: Supple. No meningismus. CHEST: Speaking in full sentences. No respiratory distress. Poor air movement but without appreciable wheezes at this time. Saturating 95-96% on 4LPM NC. Mild TTP of sternum. Not reproducible with left anterior rib palpation though breast tissue in the way. No obvious bony deformity or subcutaneous emphysema/crepitus. HEART: Regular rate and rhythm. . ABDOMEN: Soft, nondistended. No rigidity or guarding. Not peritoneal EXTREMITIES: Normal range of motion. SKIN: Warm, dry, no rash. NEURO: No focal deficits. Alert and oriented. Answering questions. Following commands. Normal speech without aphasia or dysarthria. PSYCH: Normal mood and affect. Course Vital Signs Vital signs: Vital Signs Temperature 98 F 03/03/25 04:55 Pulse Rate 103 H 03/03/25 04:55 Respiratory Rate 25 H 03/03/25 04:55 Blood Pressure 134/92 H 03/03/25 04:55 Pulse Oximetry 91 03/03/25 04:55 Oxygen Delivery Nasal Cannula 03/03/25 04:55 Oxygen Flow Rate 4 03/03/25 04:55 Temperature 98 F 03/03/25 04:55 Pulse Rate 101 H 03/03/25 08:18 Respiratory Rate 26 H 03/03/25 08:18 Blood Pressure 129/69 03/03/25 08:18 Pulse Oximetry 91 03/03/25 08:19 Oxygen Delivery Nasal Cannula 03/03/25 08:19 Oxygen Flow Rate 5 03/03/25 08:19 MDM - Fall MDM Narrative Medical decision making narrative: Patient presents after an accidental fall from bed. She has a history of COPD/emphysema for which she is on 4 L nasal cannula supplemental oxygen at baseline. Landed on her chest and is concerned for rib fractures as she is having pain on inspiration. In the emergency department she is afebrile with vital signs that initially show mild elevation in diastolic blood pressure, mild tachycardia, tachypnea with a rate of 25 respirations per minute, and hypoxic at 91% on nasal cannula. Not on anticoagulation per review of medication list. She has a leukocytosis, microcytic anemia, thrombocytosis. Leukocytosis and thrombocytosis have been chronic per review of the EMR although the hemoglobin does represent a drop of greater than 1 g since previous in October. She received DuoNeb in route with EMS. Another DuoNeb is ordered. She received a total of 6 mg morphine thus far in the ED (2 + 4). Acetaminophen ordered. Awaiting CT scan; I did call to ask CT to process this to stat rad as a Trauma given mechanism and this is done. No acute traumatic findings as below. Evidence of a hiatal hernia but patient already on omeprazole. Patient otherwise saturating appropriately on her home settings. There is notation of atelectasis and likely consolidation within the left lower lobe. Given the leukocytosis and this finding, will treat as pneumonia. Initial plan was to discharge on azithromycin and Augmentin based on comorbidities but CURB-65 score Confusion (No 0, Yes +1): 0 BUN >19mg/dl (No 0, Yes +1): 0 RR >/= 30 (No 0, Yes +1): 0 SBP <90mmHg or DBP </=60mmHg (No 0, Yes +1): 0 Age >/=65 (No 0, Yes +1) 1 Result 1?points Low risk group: 2.7% 30-day mortality. Consider outpatient treatment. == Suspect/probable simple pneumonia [versus complex = aspiration, gram negative, staphylococcal, legionnaire's, TB, fungal, empyema, abscess] However, upon reassessment, patient is not maintaining her saturations on home setting. She is saturating 86% with a good waveform when assessed on fingers on both sides of the body. Oxygen up titrated to 6Lwith better results. Will give ceftriaxone azithromycin as well as obtaining COVID swab. She does state that she has been coughing recently. Given the new O2 requirement, I do believe she would benefit from observation admission. Patient amenable with the plan. She confirms full code status. Discussed with on-call hospitalist Dr. Ann. Differential Diagnosis Differential diagnosis: Likely other (Rib fractures, pulmonary contusion, cardiac contusion, sternal fracture, pneumothorax, hemothorax, hemopneumothorax.; bony contusion) Lab Data Attestation: I reviewed the patient's lab results. 03/03/25 05:32 03/03/25 05:32 Labs: Lab Results 03/03/25 Range/Units 05:32 WBC 14.4 H (4.5-10.0) K/mm3 RBC 4.27 (4.2-5.4) M/mm3 Hgb 8.6 L (12.0-15.0) g/dL Hct 31.8 L (37.0-47.0) % MCV 74.5 L (80-100) fl MCH 20.1 L (26-34) pg MCHC 27.0 L (32-36) g/dl RDW 16.3 H (11.5-14.5) % Plt Count 407 H (150-375) k/mm3 MPV 9.3 (7.4-10.4) fl Immature Gran % (Auto) 0.7 H (0-0.5) % Neut % (Auto) 80.5 H (45.5-73.1) % Lymph % (Auto) 10.5 L (18.3-44.2) % Whiteside % (Auto) 5.7 (2.6-8.5) % Eos % (Auto) 2.2 (0-4.4) % Baso % (Auto) 0.4 (0.2-1.2) % Lymph # (Auto) 1.51 (0.9-3.2) K/mm3 Whiteside # (Auto) 0.8 H (0.1-0.6) K/mm3 Eos # (Auto) 0.3 (0-0.3) K/mm3 Baso # (Auto) 0.1 (0.0-0.1) K/mm3 Abs Immat Gran (auto) 0.10 H (0.00-0.031) K/mm3 Absolute Neuts (auto) 11.6 H (1.3-6.7) K/mm3 Absolute Nucleated RBC 0.000 (0.0-0.012) K/mm3 Band Neutrophils % Not Reportable Nucleated RBC % 0.0 (0.0-0.2) % Platelet Estimate Increased (Adequate) Hypochromasia 1+ Poikilocytosis 1+ Anisocytosis 1+ Microcytosis 1+ (NORMAL) Target Cells Occasional Ovalocytes 2+ Schistocytes None seen PT 13.1 (11.1-14.7) Seconds INR 1.0 APTT 27.2 (22.3-36.8) Seconds Sodium 136 L (137-145) mmol/L Potassium 4.0 (3.4-5.0) mmol/L Chloride 102 (98-107) mmol/L Carbon Dioxide 29 (22-30) mmol/L Anion Gap 5 (4-12) mmol/L BUN 12 (7-17) mg/dL Creatinine 0.85 (0.7-1.0) mg/dL Estim Creat Clear Calc 52 ml/min Estimated GFR > 60 (59 - ) Glucose 113 H (65-110) mg/dL Calcium 9.4 (8.4-10.2) mg/dL Total Bilirubin 0.3 (0.2-1.3) mg/dL AST 24 (14-36) U/L ALT 17 (6-35) U/L Alkaline Phosphatase 132 H (38-126) U/L Troponin I < 0.012 (0.000-0.034) ng/mL Total Protein 7.0 (6.3-8.2) g/dL Albumin 4.0 (3.5-5.1) g/dL Lipase 33 (23-300) U/L Imaging Data Attestation: I personally reviewed and interpreted this imaging study as follows: My impression: No oralia PTX/IDA on my independent interpretation; No anterior pulmonary contusions appreciated. There does appear to be some ground glass opacities Radiologist's impression: CT Stat Rad w/o contrast Chest: Bilateral emphysematous changes. Atelectasis and likely consolidation is seen within the left lower lobe. Otherwise no acute finding seen within the chest. CT abdomen Stat Rad : Hiatal hernia containing the proximal portion of the stomach with question of a proximal gastric wall thickening. Otherwise no acute intra-abdominal findings. ECG Data EKG #1: Attestation: I personally reviewed and interpreted this ECG as follows: ECG completion date: 03/03/25 ECG completion time: 05:04 Interpretation: Normal sinus rhythm at a rate of 97 beats per minute. MO interval 135. QRS 86. QT/QTC 334/424. Good R-wave progression across the precordial leads. Significant baseline artifact limits full interpretation although no oralia/obvious ST segment elevations. Discharge Plan Discharge Clinical Impression: Leukocytosis, Thrombocytosis, Microcytic anemia, Inspiratory pain, Emphysema, unspecified, Left lower lobe consolidation, Hernia, hiatal, Anterior chest wall pain Fall from bed Qualifiers: Encounter type: initial encounter Qualified Code(s): W06.XXXA - Fall from bed, initial encounter Patient Disposition: Still a Patient Condition: Stable Instructions: Antibiotic Form, Hiatal Hernia (ED), Fall Prevention for Older Adults (ED), Emphysema (DC), COPD (Chronic Obstructive Pulmonary Disease) (DC), Anemia (ED), Pneumonia (ED), Chest Wall Pain (ED) Patient Language: Telugu Prescriptions: No Action lisinopril 20 mg tablet 20 mg PO BID amlodipine 5 mg tablet 5 mg PO DAILY buspirone 10 mg tablet 10 mg PO BID budesonide 0.5 mg/2 mL suspension for nebulization 0.5 mg inhalation DAILY Qty: 60 5RF Rx Instructions: rinse and spit Ohtuvayre 3 mg/2.5 mL suspension for nebulization 2.5 ml inhalation QAM AND QPM atorvastatin 20 mg tablet 20 mg PO DAILY cetirizine [Zyrtec] 10 mg tablet 5 mg PO DAILY PRN (Reason: allergy symptoms) tolterodine 4 mg capsule,extended release 24hr 4 mg PO DAILY levothyroxine 112 mcg tablet 112 mcg PO DAILY omeprazole magnesium 20 mg capsule,delayed release(DR/EC) 20 mg PO DAILY citalopram 40 mg tablet 20 mg PO BID bupropion HCl 100 mg tablet 100 mg PO BID aspirin [Adult Low Dose Aspirin] 81 mg tablet,delayed release (DR/EC) 81 mg PO DAILY pramipexole 1 mg tablet 1 mg PO TID trazodone 100 mg tablet 100 mg PO QHS PRN (Reason: sleep) alendronate 70 mg tablet 70 mg PO WEEKLY Patient Comments: azelastine 137 mcg (0.1 %) spray,non-aerosol 1 spray intranasal Q12H Qty: 30 5RF Rx Instructions: administer into each nostril fluticasone propionate 50 mcg/actuation spray,suspension See Rx Instructions .ROUTE .COMPLEX Qty: 16 11RF Dose Instruction: USE ONE SPRAY IN EACH NOSTRIL TWICE DAILY FOR 30 DAYS Rx Instructions: USE ONE SPRAY IN EACH NOSTRIL TWICE DAILY FOR 30 DAYS arformoterol [Brovana] 15 mcg/2 mL solution for nebulization 2 ml inhalation BID Qty: 120 11RF Yupelri 175 mcg/3 mL solution for nebulization 175 mcg inhalation DAILY Qty: 90 11RF roflumilast 500 mcg tablet See Rx Instructions .ROUTE .COMPLEX Qty: 30 11RF Dose Instruction: TAKE 1 TABLET BY MOUTH DAILY Rx Instructions: TAKE 1 TABLET BY MOUTH DAILY zafirlukast 20 mg tablet See Rx Instructions .ROUTE .COMPLEX Qty: 60 11RF Dose Instruction: TAKE 1 TABLET BY MOUTH EVERY 12 HOURS. WAIT 1 TO 2 HOURS AFTER FOOD Rx Instructions: TAKE 1 TABLET BY MOUTH EVERY 12 HOURS. WAIT 1 TO 2 HOURS AFTER FOOD levalbuterol HCl 1.25 mg/3 mL solution for nebulization See Rx Instructions .ROUTE .COMPLEX Qty: 825 3RF Dose Instruction: INHALE THE CONTENTS OF 1 VIAL VIA NEBULIZER THREE TIMES DAILY NEEDED FOR SHORTNESS OF BREATH OR WHEEZING. Rx Instructions: INHALE THE CONTENTS OF 1 VIAL VIA NEBULIZER THREE TIMES DAILY NEEDED FOR SHORTNESS OF BREATH OR WHEEZING. Sutab 1.479-0.188- 0.225 gram tablet See Rx Instructions PO PER PKG DIR Qty: 24 0RF Rx Instructions: PO PER PKG DIR Follow-up/Referrals: Lisa,Naldo Callahan MD [Primary Care Provider, Unknown] Time of Disposition: 09:01
--- NOTE | 2025-03-03 07:15 | PC.NURSE ---
Assumed care of pt. Pt resting quietly
[2025-03-03] MEDS: IPRATROPIUM 0.5 MG/ALBUTEROL SULFATE 2.5 MG AMPUL.NEB 3 ML INHALATION (07:41)
[2025-03-03] MEDS: ACETAMINOPHEN 500 MG TABLET 1000 MG PO (08:06)
[2025-03-03] MEDS: LIDOCAINE 5% PATCH 1 PATCH TRANSDERM (08:11)
[2025-03-03] MEDS: KETOROLAC 15 MG/ML VIAL (*BKC) IV PUSH (08:11)
--- NOTE | 2025-03-03 08:58 | PM.IMHP ---
H&P: HPI History of Present Illness Date/Time: 03/03/25 08:58 Chief Complaint: Cough and fall Narrative: Patient is a 69-year-old female with a past medical history of hypertension, dyslipidemia, COPD, former smoker, TEJINDER, anxiety visited ER due to fall and cough. Patient had a accident fall out of the bed today.She was seated at the end of the bed and fell asleep sitting up and rolled out of the bed landing on her chest. In the ED patient had chest pain on inspiration. CT chest was performed and preliminary report shows bilateral emphysematous changes, likely consolidation in the left lower lobe and no evidence of fracture. Initially patient was about discharge with oral antibiotic for pneumonia but unfortunately her oxygen need has been increased before discharge. Patient baseline 4 L nasal cannula at rest but currently she is on 6 L. patient is admitted in the setting of pneumonia. Patient quit smoking 2004. Patient ambulates by wheelchair due to chronic emphysema. Patient was on chronic steroid but stopped about a year ago. Review of Systems Review of Systems: Except as documented, all other systems were reviewed and are negative. [facility] Past Medical History Medical History Supplemental oxygen dependent COPD with emphysema Surgical History Surgical History Bladder polyps Tonsillectomy planned Family History Family History Sibling Hypertension Grandparent Hypertension Mother Hypertension Father Hypertension Asthma Daughter Brain injury Malignant neoplastic disease Social History Social History Smoking packs per day: 2 Smoking cigarettes per day: 40.0 Years smoked: 33 Smoking pack-years: 66.00 Smoking status: Former smoker Tobacco type: cigarettes Smoking end date: 06/20/05 Alcohol intake: never Substance use: never Lack of Transportation: No Lack of Food: Never True Current Housing: I Have Housing Concerned About Future Housing: No Difficulty Paying Gas/Electric Bills: No Difficulty Paying for Meds: No Currently Unemployed: No Education: High School Diploma/GED Difficulty w/ Childcare or Family Care: No Living arrangements: with family Spiritual care concerns: No Meds Home Medications and Allergies Home Medications ?Medication ?Instructions ?Recorded ?Confirmed ?Type aspirin 81 mg tablet,delayed 81 mg PO DAILY 05/09/19 03/03/25 History release (Adult Low Dose Aspirin) atorvastatin 20 mg tablet 20 mg PO DAILY 05/09/19 03/03/25 History bupropion HCl 100 mg tablet 100 mg PO BID 05/09/19 03/03/25 History cetirizine 10 mg tablet (Zyrtec) 5 mg PO DAILY PRN allergy symptoms 05/09/19 03/03/25 History citalopram 40 mg tablet 20 mg PO BID 05/09/19 03/03/25 History levothyroxine 112 mcg tablet 112 mcg PO DAILY 05/09/19 03/03/25 History omeprazole magnesium 20 mg 20 mg PO DAILY 05/09/19 03/03/25 History capsule,delayed release tolterodine 4 mg capsule,extended 4 mg PO DAILY 05/09/19 03/03/25 History release 24 hr pramipexole 1 mg tablet 1 mg PO TID 07/13/21 03/03/25 History trazodone 100 mg tablet 100 mg PO QHS PRN sleep 07/13/21 03/03/25 History alendronate 70 mg tablet 70 mg PO WEEKLY 02/02/23 03/03/25 History lisinopril 20 mg tablet 20 mg PO BID 09/14/23 03/03/25 History azelastine 137 mcg (0.1 %) nasal 1 spray intranasal Q12H #30 mL 02/09/24 03/03/25 Rx spray amlodipine 5 mg tablet 5 mg PO DAILY 03/15/24 03/03/25 History buspirone 10 mg tablet 10 mg PO BID 03/15/24 03/03/25 History fluticasone propionate 50 See Rx Instructions .Route 05/07/24 03/03/25 Rx mcg/actuation nasal .COMPLEX #16 grams spray,suspension arformoterol 15 mcg/2 mL solution 2 ml inhalation BID #120 mL 07/16/24 03/03/25 Rx for nebulization (Brovana) revefenacin 175 mcg/3 mL solution 175 mcg (3 mL) inhalation DAILY 07/16/24 03/03/25 Rx for nebulization (Yupelri) #90 mL roflumilast 500 mcg tablet See Rx Instructions .Route 11/05/24 03/03/25 Rx .COMPLEX #30 tabs zafirlukast 20 mg tablet See Rx Instructions .Route 11/05/24 03/03/25 Rx .COMPLEX #60 tabs levalbuterol HCl 1.25 mg/3 mL See Rx Instructions .Route 11/07/24 03/03/25 Rx solution for nebulization .COMPLEX #825 mL sodium sul 1.479 gram-potas ch See Rx Instructions PO PER PKG DIR 12/18/24 03/03/25 Rx 0.188 gram-magnes sul 0.225 gram #24 tabs tablet (Sutab) budesonide 0.5 mg/2 mL suspension 0.5 mg (2 mL) inhalation DAILY #60 02/27/25 03/03/25 Rx for nebulization mL albuterol sulfate 90 mcg/actuation 2 puff inhalation Q4H PRN 03/03/25 03/03/25 History aerosol inhaler shortness of breath or wheezing budesonide 0.25 mg/2 mL suspension 0.25 mg inhalation Q12H 03/03/25 03/03/25 History for nebulization Allergies Allergy/AdvReac Type Severity Reaction Status Date / Time albuterol Allergy Mild Palpitation Verified 02/27/25 09:38 s Vital Signs Vital Signs - 24 hr 03/03/25 04:55 03/03/25 05:03 03/03/25 06:27 Temperature 98 F Pulse Rate 103 H 96 Respiratory Rate 25 H 16 Blood Pressure 134/92 H 142/82 H Pulse Oximetry 91 95 92 Oxygen Delivery Nasal Cannula Nasal Cannula Oxygen Flow Rate 4 4 03/03/25 07:41 03/03/25 08:18 03/03/25 08:19 Temperature Pulse Rate 102 H 101 H Respiratory Rate 20 26 H Blood Pressure 113/39 L 129/69 Pulse Oximetry 99 90 91 Oxygen Delivery Nasal Cannula Oxygen Flow Rate 5 Exam Narrative: GENERAL: Well-appearing, well-nourished, HEAD: Normocephalic, atraumatic. EYES: Non injected, non icteric ENT: Nares clear, no rhinorrhea or epistaxis. Gross auditory acuity intact. NECK: Supple. No meningismus. CHEST: Speaking in full sentences. No respiratory distress. Poor air movement but without appreciable wheezes at this time. Saturating 95-96% on 4LPM NC. Mild TTP of sternum. Not reproducible with left anterior rib palpation though breast tissue in the way. No obvious bony deformity or subcutaneous emphysema/crepitus. HEART: Regular rate and rhythm. . ABDOMEN: Soft, nondistended. No rigidity or guarding. Not peritoneal EXTREMITIES: Normal range of motion. SKIN: Warm, dry, no rash. NEURO: No focal deficits. Alert and oriented. Answering questions. Following commands. Normal speech without aphasia or dysarthria. PSYCH: Normal mood and affect. H&P: Results Labs Labs: Short CBC 03/03/25 Range/Units 05:32 WBC 14.4 H (4.5-10.0) K/mm3 Hgb 8.6 L (12.0-15.0) g/dL Hct 31.8 L (37.0-47.0) % Plt Count 407 H (150-375) k/mm3 BMP 03/03/25 05:32 Sodium 136 L Potassium 4.0 Chloride 102 Carbon Dioxide 29 BUN 12 Creatinine 0.85 Glucose 113 H Calcium 9.4 Cardiac Enzymes 03/03/25 Range/Units 05:32 Troponin I < 0.012 (0.000-0.034) ng/mL Liver Function 03/03/25 Range/Units 05:32 Total Bilirubin 0.3 (0.2-1.3) mg/dL AST 24 (14-36) U/L ALT 17 (6-35) U/L Alkaline Phosphatase 132 H (38-126) U/L Albumin 4.0 (3.5-5.1) g/dL Assessment and Plan Assessment and plan (1) Left lower lobe consolidation: Code(s): J18.1 - Lobar pneumonia, unspecified organism Status: Acute Assessment and Plan: Patient found to be hypercapnic on his ABG Chronic leukocytosis Currently on 4 L nasal cannula with no respiratory distress Reviewed chest CT Quad screen negative Continue bronchodilators Monitor vitals Monitor culture Vital signs improved and stable Guaifenesin 600 mg p.o. b.i.d. Started on levofloxacin encourage oral intake (2) COPD (chronic obstructive pulmonary disease): Qualifiers: COPD type: unspecified COPD Qualified Code(s): J44.9 - Chronic obstructive pulmonary disease, unspecified Code(s): J44.9 - Chronic obstructive pulmonary disease, unspecified Status: Acute Assessment and Plan: Same as above (3) Emphysema, unspecified: Code(s): J43.9 - Emphysema, unspecified Status: Acute Assessment and Plan: Same as above (4) Anxiety: Code(s): F41.9 - Anxiety disorder, unspecified Status: Acute Assessment and Plan: Continue BuSpar 10 mg p.o. b.i.d. (5) TEJINDER (obstructive sleep apnea): Code(s): G47.33 - Obstructive sleep apnea (adult) (pediatric) Status: Acute (6) Inspiratory pain: Code(s): R07.1 - Chest pain on breathing Status: Acute Assessment and Plan: Acute due to fall Multimodal pain management PT OT Call if any changes in Motor/Sensory exam Waiting for final report to rule definitely rule out rib fracture (7) Anterior chest wall pain: Code(s): R07.89 - Other chest pain Status: Acute Assessment and Plan: Same as above Plan Code status full code DVT prophylaxis Lovenox 40 mg subQ Hospitalist MIPS Advance Care Plan I have confirmed that the patient's Advanced Care Plan is present, code status is documented, or surrogate decision maker is listed in patient medical record.: Yes Medication Reconciliation I have utilized all available resources to obtain, update and review the patients current medications (includes all prescriptions, OTC, herbals, cannabis, and nutritional supplements).: Yes
--- NOTE | 2025-03-03 09:12 | ECG_ITS ---
Test Date: 2025-03-03 09:18:07 Measurements Intervals [place] Rate: 91 P: 46 WI: 141 QRS: 27 QRSD: 82 T: 46 QT: 364 QTc: 450 Interpretive Statements SINUS RHYTHM LOW QRS VOLTAGE IN PRECORDIAL LEADS [QRS DEFLECTION < 1.0 mV IN CHEST LEADS] NONSPECIFIC ST AND T-WAVE ABNORMALITY ABNORMAL ECG Compared to ECG 03/03/2025 05:04:29 ST (T wave) deviation no longer present Electronically Signed On 03-03-2025 09:49:59 CDT by Rafy Goodman M.D.
[2025-03-03] MEDS: cefTRIAXone 1 GM in SODIUM CHLORIDE 0.9% IV 50 ML 100 ML IVPB (09:24)
[2025-03-03] MEDS: AZITHROMYCIN 500 MG TABLET PO (09:37)
[2025-03-03 10:03] LABS: Troponin I < 0.012 ng/mL (0.000-0.034)
[2025-03-03 10:13] LABS: Influenza A QL RT-PCR Negative (Negative); Influenza B QL RT-PCR Negative (Negative); RSV RNA, RT-PCR Negative (Negative); SARS-CoV-2 RNA PCR Negative (Negative)
--- NOTE | 2025-03-03 10:36 | ADMGEN ---
This patient, Diamante Castro, was admitted to [facility] Surg Room 301-01. Patient/family oriented to hospital policies and general routines including ID bracelet, bed and alarms, visiting hours, pain management, procedures, bathroom and other care routines, personal items, smoking policy, room service/diet, and visiting hours. Information on how to activate the Rapid Response Team has been discussed. Patient/Family are encouraged to report perceived risks to care and to ask questions if they do not understand what they are told or what they should do.
[2025-03-03 11:41] LABS: Troponin I < 0.012 ng/mL (0.000-0.034)
[2025-03-03] MEDS: HYDROcodone/acetaminophen (*CRX) 5-325 MG TABLET 1 TAB PO ×3 (13:22→23:57)
[2025-03-03] MEDS: LEVOTHYROXINE SODIUM 112 MCG TABLET PO (16:16)
[2025-03-03] MEDS: PRAMIPEXOLE 1 MG TABLET PO (16:16)
[2025-03-03] MEDS: ASPIRIN 81 MG ENTERIC TABLET PO (16:16)
[2025-03-03] MEDS: CITALOPRAM HYDROBROMIDE 20 MG TABLET PO (16:16)
[2025-03-03] MEDS: ATORVASTATIN 20 MG TABLET PO (16:16)
[2025-03-03] MEDS: TOLTERODINE TARTRATE LA 4 MG CAP.ER.24H PO (16:17)
[2025-03-03] MEDS: ROFLUMILAST 500 MCG TABLET BY MOUTH (16:17)
[2025-03-03] MEDS: levoFLOXacin 750 MG/D5W 150 ML 750 MG/150 ML BAG 100 MG IVPB (16:18)
[2025-03-03] MEDS: BUDESONIDE RESPULE NEB 0.5 MG/2 ML AMP 0.25 MG INHALATION (19:54)
[2025-03-03] MEDS: ZAFIRLUKAST 20 MG TABLET BY MOUTH (20:10)
[2025-03-03] MEDS: guaiFENesin 12 HR 600 MG TABCR PO (20:13)
[2025-03-04] VITALS (11 sets, daily range): BP systolic 100–140; BP diastolic 58–71; PULSE 90–99; RESP 16–22; TEMP 36.3–36.9; O2SAT 90–94
[2025-03-04] MEDS: HYDROcodone/acetaminophen (*CRX) 5-325 MG TABLET 1 TAB PO ×4 (05:03→20:12)
[2025-03-04] MEDS: LEVOTHYROXINE SODIUM 112 MCG TABLET PO (05:58)
--- NOTE | 2025-03-04 07:21 | P.PNIM_ITS ---
Progress Note: A&P Assessment and Plan (1) Left lower lobe consolidation: Code(s): J18.1 - Lobar pneumonia, unspecified organism Status: Acute Assessment and Plan: * Patient found to be hypercapnic on his ABG * Chronic leukocytosis * Currently on 4 L nasal cannula with no respiratory distress * Reviewed chest CT - still pending result * Quad screen negative * Continue bronchodilators * Monitor vitals, cultures * Vital signs improved and stable * Guaifenesin 600 mg p.o. b.i.d. * Started on levofloxacin * Encourage oral intake * WBC downtrending, 14.4 -> 11.0 (2) COPD (chronic obstructive pulmonary disease): Qualifiers: COPD type: unspecified COPD Qualified Code(s): J44.9 - Chronic obstr uctive pulmonary disease, unspecified Code(s): J44.9 - Chronic obstructive pulmonary disease, unspecified Status: Acute Assessment and Plan: * Same as above (3) Emphysema, unspecified: Code(s): J43.9 - Emphysema, unspecified Status: Acute Assessment and Plan: * Same as above (4) Anxiety: Code(s): F41.9 - Anxiety disorder, unspecified Status: Acute Assessment and Plan: * Continue BuSpar 10 mg p.o. b.i.d. (5) TEJINDER (obstructive sleep apnea): Code(s): G47.33 - Obstructive sleep apnea (adult) (pediatric) Status: Acute (6) Inspiratory pain: Code(s): R07.1 - Chest pain on breathing Status: Acute Assessment and Plan: * Acute due to fall * Multimodal pain management * PT OT * Call if any changes in Motor/Sensory exam * Waiting for final report to rule definitely rule out rib fracture - still pending (7) Anterior chest wall pain: Code(s): R07.89 - Other chest pain Status: Acute Assessment and Plan: * Same as above Plan Code status full code DVT prophylaxis Lovenox 40 mg subQ Subjective Date/time seen: 03/04/25 07:21 Interval history: Patient is a 69-year-old female with a past medical history of hypertension, dyslipidemia, COPD, former smoker, TEJINDER, anxiety visited ER due to fall and cough. Patient had a accident fall out of the bed today.She was seated at the end of the bed and fell asleep sitting up and rolled out of the bed landing on her chest. 03/04/2025 Patient sitting comfortably in bed at time of exam. Denies any chest pain, shortness of breath, n/v or abd pain. On 4L NC which is her baseline. Leukocytosis improving, blood cultures pending. Otherwise has no complaints or concerns at this time. Review of Systems Review of Systems: Except as documented, all other systems were reviewed and are negative. Exam Narrative: GENERAL: Well-appearing, well-nourished, HEAD: Normocephalic, atraumatic. EYES: Non injected, non icteric ENT: Nares clear, no rhinorrhea or epistaxis. Gross auditory acuity intact. NECK: Supple. No meningismus. CHEST: Speaking in full sentences. No respiratory distress. Poor air movement but without appreciable wheezes at this time. Saturating 95-96% on 4LPM NC. Mild TTP of sternum. Not reproducible with left anterior rib palpation though breast tissue in the way. No obvious bony deformity or subcutaneous emphysema/crepitus. HEART: Regular rate and rhythm. . ABDOMEN: Soft, nondistended. No rigidity or guarding. Not peritoneal EXTREMITIES: Normal range of motion. SKIN: Warm, dry, no rash. NEURO: No focal deficits. Alert and oriented. Answering questions. Following commands. Normal speech without aphasia or dysarthria. PSYCH: Normal mood and affect. Objective Data Vital Signs Vital Signs: Vital Signs - 24 hr 03/03/25 07:41 03/03/25 08:18 03/03/25 08:19 Temperature Pulse Rate 102 H 101 H Respiratory Rate 20 26 H Blood Pressure 113/39 L 129/69 Pulse Oximetry 99 90 91 Oxygen Delivery Nasal Cannula Oxygen Flow Rate 5 03/03/25 08:30 03/03/25 08:31 03/03/25 08:45 Temperature Pulse Rate 96 96 101 H Respiratory Rate 16 16 17 Blood Pressure 100/65 Pulse Oximetry 94 94 93 Oxygen Delivery Oxygen Flow Rate 03/03/25 09:00 03/03/25 09:01 03/03/25 09:15 Temperature Pulse Rate 95 99 96 Respiratory Rate 14 14 19 Blood Pressure 123/68 Pulse Oximetry 93 93 94 Oxygen Delivery Oxygen Flow Rate 03/03/25 09:30 03/03/25 09:31 03/03/25 09:32 Temperature Pulse Rate 91 94 91 Respiratory Rate 14 16 16 Blood Pressure 134/71 Pulse Oximetry 94 93 92 Oxygen Delivery Oxygen Flow Rate 03/03/25 09:45 03/03/25 10:00 03/03/25 10:01 Temperature Pulse Rate 98 96 95 Respiratory Rate 19 16 17 Blood Pressure 124/68 Pulse Oximetry 95 92 94 Oxygen Delivery Oxygen Flow Rate 03/03/25 10:15 03/03/25 11:36 03/03/25 12:07 Temperature 98.6 F Pulse Rate 88 91 Respiratory Rate 14 20 Blood Pressure 125/57 L Pulse Oximetry 95 95 90 Oxygen Delivery Nasal Cannula Oxygen Flow Rate 4 03/03/25 19:55 03/03/25 20:01 03/03/25 20:05 Temperature Pulse Rate 99 99 95 Respiratory Rate 24 H 24 H Blood Pressure Pulse Oximetry 92 Oxygen Delivery Nasal Cannula Oxygen Flow Rate 4 03/03/25 20:13 03/03/25 20:54 03/04/25 04:37 Temperature 97.3 F L 97.4 F L Pulse Rate 97 95 Respiratory Rate 16 22 H Blood Pressure 123/63 140/71 Pulse Oximetry 90 90 94 Oxygen Delivery Nasal Cannula Oxygen Flow Rate 6 Intake/Output Intake/Output: Intake & Output 03/01/25 03/02/25 03/03/25 03/04/25 23:59 23:59 23:59 23:59 Intake Total 120 550 Balance 120 550 Meds/Results Medications: Active Medications Generic Name Dose Route Start Last Admin Trade Name Freq PRN Reason Stop Dose Admin Acetaminophen 650 mg 03/03/25 08:58 Acetaminophen 325 Mg Tablet PO Q4H PRN Mild Pain (1-3) or Fever Hydrocodone Bitart/Acetaminophen 1 tab 03/03/25 08:58 03/04/25 05:03 Hydrocodone/Acetaminophen (*Crx) 5-325 Mg Tablet PO 1 tab Q4H PRN Administration Pain Rated 4-6 Hydrocodone Bitart/Acetaminophen 1 tab 03/03/25 14:41 Hydrocodone/Acetaminophen (*Crx) 5-325 Mg Tablet PO Q4H PRN Pain Rated 4-6 Alendronate Sodium 70 mg 03/07/25 06:30 Alendronate Sodium 70 Mg Tablet PO Th@0630 [facility] Amlodipine Besylate 5 mg 03/03/25 14:30 03/03/25 16:16 Amlodipine Besylate 5 Mg Tablet PO 5 mg DAILY JANESSA Administration Aspirin 81 mg 03/03/25 14:30 03/03/25 16:16 Aspirin 81 Mg Enteric Tablet PO 81 mg DAILY JANESSA Administration Atorvastatin Calcium 20 mg 03/03/25 14:30 03/03/25 16:16 Atorvastatin 20 Mg Tablet PO 20 mg DAILY JANESSA Administration Budesonide 0.25 mg 03/03/25 20:00 03/03/25 19:54 Budesonide Respule Neb 0.5 Mg/2 Ml Amp INHALATION 0.25 mg Q12HRT JANESSA Administration Bupropion HCl 100 mg 03/03/25 17:00 03/03/25 16:16 Bupropion Hcl 100 Mg Tablet PO 100 mg BID JANESSA Administration Buspirone HCl 10 mg 03/03/25 17:00 03/03/25 16:16 Buspirone Hcl 10 Mg Tablet PO 10 mg BID JANESSA Administration Citalopram Hydrobromide 20 mg 03/03/25 17:00 03/03/25 16:16 Citalopram Hydrobromide 20 Mg Tablet PO 20 mg BID JANESSA Administration Guaifenesin 600 mg 03/03/25 21:00 03/03/25 20:13 Guaifenesin 12 Hr 600 Mg Tabcr PO 600 mg Q12HR JANESSA Administration Levofloxacin/Dextrose 750 mg in 150 mls @ 100 mls/hr 03/03/25 15:00 03/03/25 16:18 Levaquin 750 Mg/D5w 150 Ml IVPB 100 mls/hr Q24H JANESSA Administration Levalbuterol HCl 1.25 mg 03/03/25 14:25 03/03/25 19:55 Levalbuterol Neb 1.25 Mg/3 Ml INHALATION 1.25 mg TID PRN Administration SOB/WHEEZING Levothyroxine Sodium 112 mcg 03/03/25 14:30 03/04/25 05:58 Levothyroxine Sodium 112 Mcg Tablet PO 112 mcg DAILY@0630 JANESSA Administration Lisinopril 20 mg 03/03/25 17:00 03/03/25 16:16 Lisinopril 20 Mg Tablet PO 20 mg BID JANESSA Administration Miscellaneous Information 1 each 03/04/25 00:01 Yupelri Is Nonform; Can Pt Use From Home? XX 04/03/25 00:00 CLARIFY JANESSA Miscellaneous Information 1 each 03/04/25 00:01 Sutab Is Nonform; Can Pt Use From Home? XX 04/03/25 00:00 CLARIFY JANESSA Non-Formulary Medication 175 mcg 03/04/25 09:00 Revefenacin [Yupelri] INHALATION 04/03/25 08:59 DAILY JANESSA Non-Formulary Medication 0 tablet 03/03/25 14:30 Sod Sulf-Pot Chloride-Mag Sulf [Sutab] PO 04/02/25 14:29 PER PKG DIR JANESSA Ondansetron HCl 4 mg 03/03/25 08:58 03/03/25 13:23 Ondansetron Inj 4 Mg/2 Ml Vial IV PUSH 4 mg Q4H PRN Administration Nausea Pramipexole Dihydrochloride 1 mg 03/03/25 17:00 03/03/25 16:16 Pramipexole 1 Mg Tablet PO 1 mg TID JANESSA Administration Roflumilast 500 mcg 03/03/25 14:25 03/03/25 16:17 Roflumilast 500 Mcg Tablet BY MOUTH 500 mcg DAILY JANESSA Administration Tolterodine Tartrate 4 mg 03/03/25 14:35 03/03/25 16:17 Tolterodine Tartrate La 4 Mg Cap.Er.24h PO 4 mg DAILY JANESSA Administration Trazodone HCl 100 mg 03/03/25 14:21 03/03/25 23:57 Trazodone Hcl 50 Mg Tablet PO 100 mg QHS PRN Administration Sleep Zafirlukast 20 mg 03/03/25 21:00 03/03/25 20:10 Zafirlukast 20 Mg Tablet BY MOUTH 20 mg Q12HR JANESSA Administration Labs Labs: Laboratory Results - last 24 hr 03/03/25 03/03/25 03/03/25 09:13 09:22 11:00 Troponin I < 0.012 < 0.012 Influenza A (RT-PCR) Negative Influenza B (RT-PCR) Negative RSV (RT-PCR) Negative SARS-CoV-2 RNA (RT-PCR) Negative
[2025-03-04 07:46] LABS: Hematocrit 31.4 % (37.0-47.0); Hemoglobin 8.5 g/dL (12.0-15.0); Immature Granulocyte Percent A 0.4 % (0-0.5); Lymphocytes Absolute Auto 0.90 K/mm3 (0.9-3.2); Mean Corpuscular HGB Conc 27.1 g/dl (32-36); Mean Corpuscular Hemoglobin 20.3 pg (26-34); Mean Corpuscular Volume 75.1 fl (80-100); Nucleated Red Blood Cells Absolute Auto 0.000 K/mm3 (0.0-0.012); Nucleated Red Blood Cells Perc 0.0 % (0.0-0.2); Platelet Count Result 334 k/mm3 (150-375); Red Blood Count 4.18 M/mm3 (4.2-5.4); White Blood Count 11.0 K/mm3 (4.5-10.0)
[2025-03-04 08:05] LABS: Anisocytosis 1+; Hypochromasia Occasional; Ovalocytes 1+
[2025-03-04 08:06] LABS: Schistocytes None Seen
[2025-03-04 08:14] LABS: Alanine Aminotransferase 14 U/L (6-35); Albumin Level 3.6 g/dL (3.5-5.1); Alkaline Phosphatase 116 U/L (38-126); Anion Gap 2 mmol/L (4-12); Aspartate Amino Transferase 22 U/L (14-36); Bilirubin,Total 0.4 mg/dL (0.2-1.3); Blood Urea Nitrogen 10 mg/dL (7-17); Calcium 8.9 mg/dL (8.4-10.2); Carbon Dioxide 33 mmol/L (22-30); Chloride 99 mmol/L (98-107); Estimated CRCL calculation 58 ml/min; Estimated Glomerular Filt Rate > 60; Glucose 93 mg/dL (65-110); Potassium 4.4 mmol/L (3.4-5.0); Sodium 134 mmol/L (137-145); Total Protein 6.6 g/dL (6.3-8.2)
[2025-03-04] MEDS: ATORVASTATIN 20 MG TABLET PO (08:24)
[2025-03-04] MEDS: ASPIRIN 81 MG ENTERIC TABLET PO (08:24)
[2025-03-04] MEDS: TOLTERODINE TARTRATE LA 4 MG CAP.ER.24H PO (08:25)
[2025-03-04] MEDS: ROFLUMILAST 500 MCG TABLET BY MOUTH (08:25)
[2025-03-04] MEDS: ZAFIRLUKAST 20 MG TABLET BY MOUTH ×2 (08:25→20:12)
[2025-03-04] MEDS: PRAMIPEXOLE 1 MG TABLET PO ×3 (08:25→16:12)
[2025-03-04] MEDS: guaiFENesin 12 HR 600 MG TABCR PO ×2 (08:25→20:12)
[2025-03-04] MEDS: CITALOPRAM HYDROBROMIDE 20 MG TABLET PO ×2 (08:25→16:12)
[2025-03-04] MEDS: BUDESONIDE RESPULE NEB 0.5 MG/2 ML AMP 0.25 MG INHALATION ×2 (10:00→20:45)
[2025-03-04] MEDS: levoFLOXacin 750 MG/D5W 150 ML 750 MG/150 ML BAG 100 MG IVPB (14:55)
[2025-03-05] MEDS: HYDROcodone/acetaminophen (*CRX) 5-325 MG TABLET 1 TAB PO ×3 (03:08→13:55)
[2025-03-05] MEDS: LEVOTHYROXINE SODIUM 112 MCG TABLET PO (05:33)
[2025-03-05 06:00] VITALS: BP 127/64; PULSE 99; RESP 16; TEMP 36.6; O2SAT 91
[2025-03-05 06:21] LABS: Hematocrit 29.6 % (37.0-47.0); Hemoglobin 8.0 g/dL (12.0-15.0); Immature Granulocyte Percent A 0.6 % (0-0.5); Lymphocytes Absolute Auto 1.00 K/mm3 (0.9-3.2); Mean Corpuscular HGB Conc 27.0 g/dl (32-36); Mean Corpuscular Hemoglobin 20.6 pg (26-34); Mean Corpuscular Volume 76.1 fl (80-100); Nucleated Red Blood Cells Absolute Auto 0.000 K/mm3 (0.0-0.012); Nucleated Red Blood Cells Perc 0.0 % (0.0-0.2); Platelet Count Result 340 k/mm3 (150-375); Red Blood Count 3.89 M/mm3 (4.2-5.4); White Blood Count 10.9 K/mm3 (4.5-10.0)
[2025-03-05 06:49] LABS: Alanine Aminotransferase 12 U/L (6-35); Albumin Level 3.3 g/dL (3.5-5.1); Alkaline Phosphatase 113 U/L (38-126); Anion Gap 3 mmol/L (4-12); Aspartate Amino Transferase 24 U/L (14-36); Bilirubin,Total 0.2 mg/dL (0.2-1.3); Blood Urea Nitrogen 11 mg/dL (7-17); Calcium 8.6 mg/dL (8.4-10.2); Carbon Dioxide 30 mmol/L (22-30); Chloride 99 mmol/L (98-107); Estimated CRCL calculation 59 ml/min; Estimated Glomerular Filt Rate > 60; Glucose 120 mg/dL (65-110); Potassium 4.2 mmol/L (3.4-5.0); Sodium 132 mmol/L (137-145); Total Protein 6.0 g/dL (6.3-8.2)
--- NOTE | 2025-03-05 07:00 | PM.IMPN ---
Progress Note: A&P Assessment and Plan (1) Left lower lobe consolidation: Code(s): J18.1 - Lobar pneumonia, unspecified organism Status: Acute Assessment and Plan: Patient found to be hypercapnic on his ABG Chronic leukocytosis Currently on 4 L nasal cannula with no respiratory distress Reviewed chest CT - still pending result Quad screen negative Continue bronchodilators Monitor vitals, cultures Vital signs improved and stable Guaifenesin 600 mg p.o. b.i.d. Started on levofloxacin Encourage oral intake WBC downtrending, 14.4 -> 11.0 (2) COPD (chronic obstructive pulmonary disease): Qualifiers: COPD type: unspecified COPD Qualified Code(s): J44.9 - Chronic obstructive pulmonary disease, unspecified Code(s): J44.9 - Chronic obstructive pulmonary disease, unspecified Status: Acute Assessment and Plan: Same as above (3) Emphysema, unspecified: Code(s): J43.9 - Emphysema, unspecified Status: Acute Assessment and Plan: Same as above (4) Anxiety: Code(s): F41.9 - Anxiety disorder, unspecified Status: Acute Assessment and Plan: Continue BuSpar 10 mg p.o. b.i.d. (5) TEJINDER (obstructive sleep apnea): Code(s): G47.33 - Obstructive sleep apnea (adult) (pediatric) Status: Acute (6) Inspiratory pain: Code(s): R07.1 - Chest pain on breathing Status: Acute Assessment and Plan: Acute due to fall Multimodal pain management PT OT Call if any changes in Motor/Sensory exam Waiting for final report to rule definitely rule out rib fracture - still pending (7) Anterior chest wall pain: Code(s): R07.89 - Other chest pain Status: Acute Assessment and Plan: Same as above Plan Code status full code DVT prophylaxis Lovenox 40 mg subQ Subjective Date/time seen: 03/05/25 07:00 Interval history: Patient is a 69-year-old female with a past medical history of hypertension, dyslipidemia, COPD, former smoker, TEJINDER, anxiety visited ER due to fall and cough. Patient had a accident fall out of the bed today.She was seated at the end of the bed and fell asleep sitting up and rolled out of the bed landing on her chest. 03/05/2025 Patient sitting comfortably in bed at time of exam. Review of Systems Review of Systems: Except as documented, all other systems were reviewed and are negative. Exam Narrative: GENERAL: Well-appearing, well-nourished, HEAD: Normocephalic, atraumatic. EYES: Non injected, non icteric ENT: Nares clear, no rhinorrhea or epistaxis. Gross auditory acuity intact. NECK: Supple. No meningismus. CHEST: Speaking in full sentences. No respiratory distress. Poor air movement but without appreciable wheezes at this time. Saturating 95-96% on 4LPM NC. Mild TTP of sternum. Not reproducible with left anterior rib palpation though breast tissue in the way. No obvious bony deformity or subcutaneous emphysema/crepitus. HEART: Regular rate and rhythm. . ABDOMEN: Soft, nondistended. No rigidity or guarding. Not peritoneal EXTREMITIES: Normal range of motion. SKIN: Warm, dry, no rash. NEURO: No focal deficits. Alert and oriented. Answering questions. Following commands. Normal speech without aphasia or dysarthria. PSYCH: Normal mood and affect. Objective Data Vital Signs Vital Signs: Vital Signs - 24 hr 03/04/25 08:00 03/04/25 10:00 03/04/25 10:00 Temperature Pulse Rate 90 Respiratory Rate 20 Blood Pressure Pulse Oximetry 94 90 Oxygen Delivery Nasal Cannula Nasal Cannula Oxygen Flow Rate 4 4 03/04/25 10:15 03/04/25 13:49 03/04/25 16:14 Temperature 97.4 F L Pulse Rate 92 99 Respiratory Rate 20 16 Blood Pressure 100/63 124/66 Pulse Oximetry 90 Oxygen Delivery Oxygen Flow Rate 03/04/25 20:16 03/04/25 20:40 03/04/25 20:53 Temperature Pulse Rate 96 Respiratory Rate 20 Blood Pressure Pulse Oximetry 90 92 Oxygen Delivery Nasal Cannula Nasal Cannula Oxygen Flow Rate 4 4 03/04/25 21:00 03/04/25 21:18 03/05/25 06:00 Temperature 98.4 F 97.8 F Pulse Rate 94 94 99 Respiratory Rate 20 16 16 Blood Pressure 104/58 L 127/64 Pulse Oximetry 90 91 Oxygen Delivery Oxygen Flow Rate Intake/Output Intake/Output: Intake & Output 03/02/25 03/03/25 03/04/25 03/05/25 23:59 23:59 23:59 23:59 Intake Total 270 1270 400 Output Total 400 Balance 270 870 400 Meds/Results Medications: Active Medications Generic Name Dose Route Start Last Admin Trade Name Freq PRN Reason Stop Dose Admin Acetaminophen 650 mg 03/03/25 08:58 Acetaminophen 325 Mg Tablet PO Q4H PRN Mild Pain (1-3) or Fever Hydrocodone Bitart/Acetaminophen 1 tab 03/03/25 08:58 03/05/25 03:08 Hydrocodone/Acetaminophen (*Crx) 5-325 Mg Tablet PO 1 tab Q4H PRN Administration Pain Rated 4-6 Hydrocodone Bitart/Acetaminophen 1 tab 03/03/25 14:41 Hydrocodone/Acetaminophen (*Crx) 5-325 Mg Tablet PO Q4H PRN Pain Rated 4-6 Alendronate Sodium 70 mg 03/07/25 06:30 Alendronate Sodium 70 Mg Tablet PO Th@0630 JANESSA Amlodipine Besylate 5 mg 03/03/25 14:30 03/04/25 08:24 Amlodipine Besylate 5 Mg Tablet PO 5 mg DAILY JANESSA Administration Aspirin 81 mg 03/03/25 14:30 03/04/25 08:24 Aspirin 81 Mg Enteric Tablet PO 81 mg DAILY JANESSA Administration Atorvastatin Calcium 20 mg 03/03/25 14:30 03/04/25 08:24 Atorvastatin 20 Mg Tablet PO 20 mg DAILY JANESSA Administration Budesonide 0.25 mg 03/03/25 20:00 03/04/25 20:45 Budesonide Respule Neb 0.5 Mg/2 Ml Amp INHALATION 0.25 mg Q12HRT JANESSA Administration Bupropion HCl 100 mg 03/03/25 17:00 03/04/25 16:12 Bupropion Hcl 100 Mg Tablet PO 100 mg BID JANESSA Administration Buspirone HCl 10 mg 03/03/25 17:00 03/04/25 16:12 Buspirone Hcl 10 Mg Tablet PO 10 mg BID JANESSA Administration Citalopram Hydrobromide 20 mg 03/03/25 17:00 03/04/25 16:12 Citalopram Hydrobromide 20 Mg Tablet PO 20 mg BID JANESSA Administration Guaifenesin 600 mg 03/03/25 21:00 03/04/25 20:12 Guaifenesin 12 Hr 600 Mg Tabcr PO 600 mg Q12HR JANESSA Administration Levofloxacin/Dextrose 750 mg in 150 mls @ 100 mls/hr 03/03/25 15:00 03/04/25 14:55 Levaquin 750 Mg/D5w 150 Ml IVPB 100 mls/hr Q24H JANESSA Administration Levalbuterol HCl 1.25 mg 03/03/25 14:25 03/04/25 10:34 Levalbuterol Neb 1.25 Mg/3 Ml INHALATION 1.25 mg TID PRN Administration SOB/WHEEZING Levothyroxine Sodium 112 mcg 03/03/25 14:30 03/05/25 05:33 Levothyroxine Sodium 112 Mcg Tablet PO 112 mcg DAILY@0630 JANESSA Administration Lisinopril 20 mg 03/03/25 17:00 03/04/25 16:12 Lisinopril 20 Mg Tablet PO 20 mg BID JANESSA Administration Miscellaneous Information 1 each 03/04/25 00:01 Yupelri Is Nonform; Can Pt Use From Home? XX 04/03/25 00:00 CLARIFY JANESSA Miscellaneous Information 1 each 03/04/25 00:01 Sutab Is Nonform; Can Pt Use From Home? XX 04/03/25 00:00 CLARIFY JANESSA Non-Formulary Medication 175 mcg 03/04/25 09:00 Revefenacin [Yupelri] INHALATION 04/03/25 08:59 DAILY [facility] Non-Formulary Medication 0 tablet 03/03/25 14:30 Sod Sulf-Pot Chloride-Mag Sulf [Sutab] PO 04/02/25 14:29 PER PKG DIR JANESSA Ondansetron HCl 4 mg 03/03/25 08:58 03/03/25 13:23 Ondansetron Inj 4 Mg/2 Ml Vial IV PUSH 4 mg Q4H PRN Administration Nausea Pramipexole Dihydrochloride 1 mg 03/03/25 17:00 03/04/25 16:12 Pramipexole 1 Mg Tablet PO 1 mg TID JANESSA Administration Roflumilast 500 mcg 03/03/25 14:25 03/04/25 08:25 Roflumilast 500 Mcg Tablet BY MOUTH 500 mcg DAILY JANESSA Administration Tolterodine Tartrate 4 mg 03/03/25 14:35 03/04/25 08:25 Tolterodine Tartrate La 4 Mg Cap.Er.24h PO 4 mg DAILY JANESSA Administration Trazodone HCl 100 mg 03/03/25 14:21 03/04/25 20:12 Trazodone Hcl 50 Mg Tablet PO 100 mg QHS PRN Administration Sleep Zafirlukast 20 mg 03/03/25 21:00 03/04/25 20:12 Zafirlukast 20 Mg Tablet BY MOUTH 20 mg Q12HR JANESSA Administration Radiology Results: ITS Impressions Chest/Abdomen CT 03/04/25 16:32 IMPRESSION: 1. Nondisplaced comminuted fracture of the sternum. 2. Severe emphysema. 3. Moderate-sized sliding hiatal hernia. Labs Labs: Laboratory Results - last 24 hr 03/04/25 03/05/25 07:38 05:01 WBC 11.0 H RBC 4.18 L Hgb 8.5 L Hct 31.4 L MCV 75.1 L MCH 20.3 L MCHC 27.1 L RDW 16.4 H Plt Count 334 MPV 9.1 Immature Gran % (Auto) 0.4 Neut % (Auto) 83.6 H Lymph % (Auto) 8.2 L [place] % (Auto) 5.0 Eos % (Auto) 2.4 Baso % (Auto) 0.4 Lymph # (Auto) 0.90 [place] # (Auto) 0.6 Eos # (Auto) 0.3 Baso # (Auto) 0.0 Abs Immat Gran (auto) 0.04 H Absolute Neuts (auto) 9.2 H Absolute Nucleated RBC 0.000 Band Neutrophils % Not Reportable Nucleated RBC % 0.0 Platelet Estimate Adequate Hypochromasia Occasional Anisocytosis 1+ Ovalocytes 1+ Schistocytes None seen Sodium 134 L 132 L Potassium 4.4 4.2 Chloride 99 99 Carbon Dioxide 33 H 30 Anion Gap 2 L 3 L BUN 10 11 Creatinine 0.76 0.74 Estim Creat Clear Calc 58 59 Estimated GFR > 60 > 60 Glucose 93 120 H Calcium 8.9 8.6 Total Bilirubin 0.4 0.2 AST 22 24 ALT 14 12 Alkaline Phosphatase 116 113 Total Protein 6.6 6.0 L Albumin 3.6 3.3 L
[2025-03-05 07:08] LABS: Anisocytosis 1+; Microcytosis 1+ (NORMAL); Ovalocytes 1+; Schistocytes None Seen
[2025-03-05 07:09] LABS: Hypochromasia 1+
[2025-03-05] MEDS: BUDESONIDE RESPULE NEB 0.5 MG/2 ML AMP 0.25 MG INHALATION (07:32)
[2025-03-05 07:35] VITALS: PULSE 94; RESP 16; O2SAT 93
[2025-03-05 07:44] VITALS: PULSE 92; RESP 16
[2025-03-05 08:00] VITALS: O2SAT 93
--- NOTE | 2025-03-05 08:49 | P.CDI_ITS ---
CDI Query Clarification Request 1) Please specify status of COPD, if known. * Exacerbation of COPD * No exacerbation/stable COPD * Other * Unable to determine 2) Please clarify if pneumonia has been ruled in or ruled out. ER documented: She has a history of COPD/emphysema for which she is chronically on 4 L supplemental oxygen via nasal cannula. EMS reported that she was 80% on the settings upon their arrival with wheezes on auscultation. Patient is concerned she has broken ribs. EMS administered a DuoNeb. H&P: In the ED patient had chest pain on inspiration. CT chest was performed and preliminary report shows bilateral emphysematous changes, likely consolidation in the left lower lobe and no evidence of fracture. Initially patient was about discharge with oral antibiotic for pneumonia but unfortunately her oxygen need has been increased before discharge. Patient baseline 4 L nasal cannula at rest but currently she is on 6 L. patient is admitted in the setting of pneumonia. Patient quit smoking 2004. Patient ambulates by wheelchair due to chronic emphysema. Patient was on chronic steroid but stopped about a year ago. Assessment and plan (1) Left lower lobe consolidation: Code(s): J18.1 - Lobar pneumonia, unspecified organism Status: Acute Assessment and Plan: Patient found to be hypercapnic on his ABG Chronic leukocytosis Currently on 4 L nasal cannula with no respiratory distress Reviewed chest CT Quad screen negative Continue bronchodilators Monitor vitals Monitor culture Vital signs improved and stable Guaifenesin 600 mg p.o. b.i.d. Started on levofloxacin encourage oral intake (2) COPD (chronic obstructive pulmonary disease): Qualifiers: COPD type: unspecified COPD Qualified Code(s): J44.9 - Chronic obstructive pulmonary disease, unspecified Code(s): J44.9 - Chronic obstructive pulmonary disease, unspecified Status: Acute Assessment and Plan: Same as above (3) Emphysema, unspecified: Code(s): J43.9 - Emphysema, unspecified Status: Acute Assessment and Plan: Same as above (4) Anxiety: Code(s): F41.9 - Anxiety disorder, unspecified Status: Acute Assessment and Plan: Continue BuSpar 10 mg p.o. b.i.d. (5) TEJIDNER (obstructive sleep apnea): Code(s): G47.33 - Obstructive sleep apnea (adult) (pediatric) Status: Acute (6) Inspiratory pain: Code(s): R07.1 - Chest pain on breathing Status: Acute Assessment and Plan: Acute due to fall Multimodal pain management PT OT Call if any changes in Motor/Sensory exam Waiting for final report to rule definitely rule out rib fracture (7) Anterior chest wall pain: Code(s): R07.89 - Other chest pain Status: Acute Assessment and Plan: Same as above Pt chronically wears 4L NC, documented 6L and 5L NC on 03/03 Budesonide inhalation guaifenesin q12 hr levofloxacin q24 hr levalbuterol PRN ceftriaxone x1 dose CT 03/04: IMPRESSION: 1. Nondisplaced comminuted fracture of the sternum. 2. Severe emphysema. 3. Moderate-sized sliding hiatal hernia. <Cele Contreras RN - Last Filed: 03/05/25 09:14> Clarified Diagnosis Clarified Diagnosis: Unable to determine COPD exacerbation, Pneumonia ruled in <Jim Sims PA-C - Last Filed: 03/05/25 11:55>
[2025-03-05] MEDS: ASPIRIN 81 MG ENTERIC TABLET PO (09:18)
[2025-03-05] MEDS: CITALOPRAM HYDROBROMIDE 20 MG TABLET PO (09:19)
[2025-03-05] MEDS: guaiFENesin 12 HR 600 MG TABCR PO (09:19)
[2025-03-05] MEDS: ATORVASTATIN 20 MG TABLET PO (09:19)
[2025-03-05] MEDS: ZAFIRLUKAST 20 MG TABLET BY MOUTH (09:20)
[2025-03-05] MEDS: TOLTERODINE TARTRATE LA 4 MG CAP.ER.24H PO (09:20)
[2025-03-05] MEDS: ROFLUMILAST 500 MCG TABLET BY MOUTH (09:20)
[2025-03-05] MEDS: PRAMIPEXOLE 1 MG TABLET PO ×2 (09:20→14:01)
--- NOTE | 2025-03-05 10:10 | PM.CNOR ---
Assessment and Plan Assessment and plan (1) Fracture, sternum closed: Qualifiers: Encounter type: initial encounter Sternal location: body of sternum Qualified Code(s): S22.22XA - Fracture of body of sternum, initial encounter for closed fracture Code(s): S22.20XA - Unspecified fracture of sternum, initial encounter for closed fracture Status: Acute Assessment and Plan: Asked to see patient for sternal and left-sided chest pain. Patient fell out of bed 2 days ago at home. CT scan of the chest initially read as no fracture and reread as fracture sternum. Some tenderness along the midportion of the sternum but more so over the left side of the chest. She appears comfortable in bed. States that she has increased pain with movement. Discussed the fracture and injury with the patient. Treatment options were reviewed. Continue with conservative care and pain management. Discussed healing time of 3-4 weeks. Should expect some discomfort during that time. May otherwise continue with activity as tolerated. May be discharged from orthopedic standpoint, patient states she would like to go home. She lives at home with her son. Follow-up in a month for assessment or if having difficulty or symptoms. History of Present Illness HPI Consult date: 03/05/25 Chief complaint: PNA w Increased O2 Requirement/Recent Fall/Hx COPD Review of Systems Constitutional: Constitutional: Denies fever(s) Eyes: Eyes: Denies blurry vision ENT: Reports Normal hearing present Cardiovascular: Cardiovascular: Denies chest pain and Denies dyspnea Respiratory: Respiratory: Denies dyspnea and Denies wheezing Gastrointestinal: Gastrointestinal: Denies abdominal pain Genitourinary: Genitourinary: Denies urinary urgency Musculoskeletal: Musculoskeletal: Reports as per HPI and Denies numbness Integumentary/Breasts: Skin/Breast: Denies changing lesions and Denies sores Neurologic: Reports Normal hearing present, Denies behavioral changes, Denies confusion, Denies numbness and Denies convulsions Psychiatric: Psychiatric: Denies behavioral changes, Denies confusion and Denies hallucinations Endocrine: Endocrine: Denies heat intolerance Hematologic/Lymphatic: Hematologic/Lymphatic: Denies easy bleeding Allergic/Immunologic: Allergic/Immunologic: Denies wheezing PMFSH Past Medical History Medical History (Updated 03/05/25 @ 10:12 by Glenn Radford MD) Fracture, sternum closed Supplemental oxygen dependent COPD with emphysema Surgical History Surgical History Bladder polyps Tonsillectomy planned Family History Family History Sibling Hypertension Grandparent Hypertension Mother Hypertension Father Hypertension Asthma Daughter Brain injury Malignant neoplastic disease Social History Social History Smoking packs per day: 2 Smoking cigarettes per day: 40.0 Years smoked: 33 Smoking pack-years: 66.00 Smoking status: Former smoker Tobacco type: cigarettes Smoking end date: 06/20/05 Alcohol intake: never Substance use: never Lack of Transportation: No Lack of Food: Never True Current Housing: I Have Housing Concerned About Future Housing: No Difficulty Paying Gas/Electric Bills: No Difficulty Paying for Meds: No Currently Unemployed: No Education: High School Diploma/GED Difficulty w/ Childcare or Family Care: No Living arrangements: with family Spiritual care concerns: No Meds Home Medications and Allergies Home Medications ?Medication ?Instructions ?Recorded ?Confirmed ?Type aspirin 81 mg tablet,delayed 81 mg PO DAILY 05/09/19 03/03/25 History release (Adult Low Dose Aspirin) atorvastatin 20 mg tablet 20 mg PO DAILY 05/09/19 03/03/25 History bupropion HCl 100 mg tablet 100 mg PO BID 05/09/19 03/03/25 History cetirizine 10 mg tablet (Zyrtec) 5 mg PO DAILY PRN allergy symptoms 05/09/19 03/03/25 History citalopram 40 mg tablet 20 mg PO BID 05/09/19 03/03/25 History levothyroxine 112 mcg tablet 112 mcg PO DAILY 05/09/19 03/03/25 History omeprazole magnesium 20 mg 20 mg PO DAILY 05/09/19 03/03/25 History capsule,delayed release tolterodine 4 mg capsule,extended 4 mg PO DAILY 05/09/19 03/03/25 History release 24 hr pramipexole 1 mg tablet 1 mg PO TID 07/13/21 03/03/25 History trazodone 100 mg tablet 100 mg PO QHS PRN sleep 07/13/21 03/03/25 History alendronate 70 mg tablet 70 mg PO WEEKLY 02/02/23 03/03/25 History lisinopril 20 mg tablet 20 mg PO BID 09/14/23 03/03/25 History azelastine 137 mcg (0.1 %) nasal 1 spray intranasal Q12H #30 mL 02/09/24 03/03/25 Rx spray amlodipine 5 mg tablet 5 mg PO DAILY 03/15/24 03/03/25 History buspirone 10 mg tablet 10 mg PO BID 03/15/24 03/03/25 History fluticasone propionate 50 See Rx Instructions .Route 05/07/24 03/03/25 Rx mcg/actuation nasal .COMPLEX #16 grams spray,suspension arformoterol 15 mcg/2 mL solution 2 ml inhalation BID #120 mL 07/16/24 03/03/25 Rx for nebulization (Brovana) revefenacin 175 mcg/3 mL solution 175 mcg (3 mL) inhalation DAILY 07/16/24 03/03/25 Rx for nebulization (Yupemiryami) #90 mL roflumilast 500 mcg tablet See Rx Instructions .Route 11/05/24 03/03/25 Rx .COMPLEX #30 tabs zafirlukast 20 mg tablet See Rx Instructions .Route 11/05/24 03/03/25 Rx .COMPLEX #60 tabs levalbuterol HCl 1.25 mg/3 mL See Rx Instructions .Route 11/07/24 03/03/25 Rx solution for nebulization .COMPLEX #825 mL sodium sul 1.479 gram-potas ch See Rx Instructions PO PER PKG DIR 12/18/24 03/03/25 Rx 0.188 gram-magnes sul 0.225 gram #24 tabs tablet (Sutab) budesonide 0.5 mg/2 mL suspension 0.5 mg (2 mL) inhalation DAILY #60 02/27/25 03/03/25 Rx for nebulization mL albuterol sulfate 90 mcg/actuation 2 puff inhalation Q4H PRN 03/03/25 03/03/25 History aerosol inhaler shortness of breath or wheezing budesonide 0.25 mg/2 mL suspension 0.25 mg inhalation Q12H 03/03/25 03/03/25 History for nebulization Allergies Allergy/AdvReac Type Severity Reaction Status Date / Time albuterol Allergy Mild Palpitation Verified 02/27/25 09:38 s Vital Signs Vital Signs - 24 hr 03/04/25 10:15 03/04/25 13:49 03/04/25 16:14 Temperature 97.4 F L Pulse Rate 92 99 Respiratory Rate 20 16 Blood Pressure 100/63 124/66 Pulse Oximetry 90 Oxygen Delivery Oxygen Flow Rate 03/04/25 20:16 03/04/25 20:40 03/04/25 20:53 Temperature Pulse Rate 96 Respiratory Rate 20 Blood Pressure Pulse Oximetry 90 92 Oxygen Delivery Nasal Cannula Nasal Cannula Oxygen Flow Rate 4 4 03/04/25 21:00 03/04/25 21:18 03/05/25 06:00 Temperature 98.4 F 97.8 F Pulse Rate 94 94 99 Respiratory Rate 20 16 16 Blood Pressure 104/58 L 127/64 Pulse Oximetry 90 91 Oxygen Delivery Oxygen Flow Rate 03/05/25 07:35 03/05/25 07:35 03/05/25 07:44 Temperature Pulse Rate 94 94 92 Respiratory Rate 16 16 16 Blood Pressure Pulse Oximetry 93 Oxygen Delivery Nasal Cannula Oxygen Flow Rate 4 03/05/25 08:00 Temperature Pulse Rate Respiratory Rate Blood Pressure Pulse Oximetry 93 Oxygen Delivery Nasal Cannula Oxygen Flow Rate 4 Exam Const: General: healthy appearing; No in distress or confusion Orientation/consciousness: oriented to person, oriented to place, oriented to time and No confusion HENMT: Head: normal to inspection, normocephalic and atraumatic Eyes: Conjunctivae: conjunctivae normal Sclera: sclerae normal Neck: Neck: supple and nontender Chest: Chest palpation & inspection: tenderness sternum Resp: Effort & Inspection: normal respiratory effort and no audible wheezes Skin: General skin exam: no rashes or lesions noted Neuro: General: oriented to person, oriented to place, oriented to time and No confusion Extrem: Right upper extremity: shoulder/upper arm axillary nerve sensory function normal, normal ROM (FF 130, Abd 120, ER 70, IR T7) and other (RC 5/5, Bicep 5/5, Deltoid 5/5, ER 5/5); no tenderness and no swelling, elbow/forearm normal ROM; no tenderness and no swelling, wrist normal ROM and radial pulse present; no tenderness and Extremity exam: right hand neuromotor exam normal wrist extension normal, thumb opposition normal, thumb IP flexion normal and fingers 2-5 ABduction normal, neurosensory exam normal radial nerve sensory function normal, ulnar nerve sensory function normal, median nerve sensory function normal and digital nerve sensory function normal and vascular exam radial pulse present and normal capillary refill; no tenderness, no swelling and no crepitus Left upper extremity: normal to inspection, shoulder/upper arm inspection abnormal, tenderness of the A-C joint, of the proximal humerus, over the subacromial bursa and other (anterolateral acromion, gh joint), axillary nerve sensory function normal, abnormal ROM pain with active ROM in ABduction and in internal rotation, pain with passive ROM in internal rotation and external rotation- and with range as follows (FF 100, Abd 80, ER 30, IR hip) and other (RC 4/5, Bicep 4/5, Deltoid 5-/5, ER 4/5); no swelling, elbow/forearm normal ROM; no tenderness and no swelling, wrist normal ROM and radial pulse present; no tenderness and hand neuromotor exam normal Details: wrist extension normal and thumb IP flexion normal, neurosensory exam normal Details: radial nerve sensory function normal, ulnar nerve sensory function normal and median nerve sensory function normal, tendon exam normal Location: of all digits and vascular exam normal capillary refill; no tenderness Right lower extremity: normal to inspection Left lower extremity: normal to inspection Psych: Affect: normal affect Results Labs 03/05/25 05:01 03/05/25 05:01 Labs: Abnormal lab results 03/05/25 Range/Units 05:01 WBC 10.9 H (4.5-10.0) K/mm3 RBC 3.89 L (4.2-5.4) M/mm3 Hgb 8.0 L (12.0-15.0) g/dL Hct 29.6 L (37.0-47.0) % MCV 76.1 L (80-100) fl MCH 20.6 L (26-34) pg MCHC 27.0 L (32-36) g/dl RDW 16.4 H (11.5-14.5) % Immature Gran % (Auto) 0.6 H (0-0.5) % Neut % (Auto) 80.1 H (45.5-73.1) % Lymph % (Auto) 9.2 L (18.3-44.2) % [place] # (Auto) 0.7 H (0.1-0.6) K/mm3 Abs Immat Gran (auto) 0.06 H (0.00-0.031) K/mm3 Absolute Neuts (auto) 8.7 H (1.3-6.7) K/mm3 Sodium 132 L (137-145) mmol/L Anion Gap 3 L (4-12) mmol/L Glucose 120 H (65-110) mg/dL Total Protein 6.0 L (6.3-8.2) g/dL Albumin 3.3 L (3.5-5.1) g/dL H & H 03/03/25 03/04/25 03/05/25 Range/Units 05:32 07:38 05:01 Hgb 8.6 L 8.5 L 8.0 L (12.0-15.0) g/dL Hct 31.8 L 31.4 L 29.6 L (37.0-47.0) % Coagulation 03/03/25 Range/Units 05:32 INR 1.0 All other labs normal. Fracture/Casting/Strapping Pre Procedure Consent was obtained, Procedures/risks were explained, Questions were answered, Correct patient identified and Correct side and site confirmed Episode of Care New episode (Chest) Fracture Care Ribs(s)/sternumn Ribs, sternum: CLOSED TX STERNUM FX Application Exam of Affected Area: Color: Abnormal (ecchymosis), Temp: Normal, Pulse: Normal, Blanching: Normal, Capillary Refill: Normal and Sensory Exam: Normal Swelling: Yes (mild) and Tenderness: Yes (sternum and left ribs) Skin Apperance: Clean and Dry and Intact Patient Tolerated Procedure Well: Yes Post Procedure Patient tolerated the procedure well?: Tolerated procedure well
--- NOTE | 2025-03-05 12:50 | P.DS_ITS ---
DS: Admitting Diagnosis Discharge Date 03/05/2025 Admitting Diagnosis Left lower lobe consolidation, sternal fracture DS: Discharge Diagnosis Discharge Diagnosis (1) Left lower lobe consolidation: Code(s): J18.1 - Lobar pneumonia, unspecified organism Status: Acute Assessment and Plan: * Patient found to be hypercapnic on his ABG * Chronic leukocytosis * Currently on 4 L nasal cannula with no respiratory distress * Reviewed chest CT - still pending result * Quad screen negative * Continue bronchodilators * Monitor vitals, cultures * Vital signs improved and stable * Guaifenesin 600 mg p.o. b.i.d. * Started on levofloxacin * Encourage oral intake * WBC downtrending, 14.4 -> 11.0 (2) Pneumonia: Code(s): J18.9 - Pneumonia, unspecified organism Status: Acute Assessment and Plan: * See above (3) COPD (chronic obstructive pulmonary disease): Qualifiers: COPD type: unspecified COPD Qualified Code(s): J44.9 - Chronic obstructive pulmonary disease, unspecified Code(s): J44.9 - Chronic obstructive pulmonary disease, unspecified Status: Acute Assessment and Plan: * Same as above (4) Emphysema, unspecified: Code(s): J43.9 - Emphysema, unspecified Status: Acute Assessment and Plan: * Same as above (5) Anxiety: Code(s): F41.9 - Anxiety disorder, unspecified Status: Acute Assessment and Plan: * Continue BuSpar 10 mg p.o. b.i.d. (6) TEJINDER (obstructive sleep apnea): Code(s): G47.33 - Obstructive sleep apnea (adult) (pediatric) Status: Acute (7) Inspiratory pain: Code(s): R07.1 - Chest pain on breathing Status: Acute Assessment and Plan: * Acute due to fall * Multimodal pain management * PT OT * Call if any changes in Motor/Sensory exam * Waiting for final report to rule definitely rule out rib fracture - still pending (8) Fracture, sternum closed: Qualifiers: Encounter type: initial encounter Sternal location: body of sternum Qualified Code(s): S22.22XA - Fracture of body of sternum, initial encounter for closed fracture Code(s): S22.20XA - Unspecified fracture of sternum, initial encounter for closed fracture Status: Acute Assessment and Plan: * Chest/abdomen CT: Nondisplaced comminuted fracture of the sternum. * Ortho consulted - conservative managment, follow up in 4 weeks (9) Anterior chest wall pain: Code(s): R07.89 - Other chest pain Status: Acute Assessment and Plan: * Same as above Plan Code status full code DVT prophylaxis Lovenox 40 mg subQ DS: Summary Hospital Course Reason for hospitalization: Chest wall pain, fall Hospital Course: Patient is a 69-year-old female with a past medical history of hypertension, dyslipidemia, COPD, former smoker, TEJINDER, anxiety visited ER due to fall and cough. Patient had a accident fall out of the bed today.She was seated at the end of the bed and fell asleep sitting up and rolled out of the bed landing on her chest. In the ED patient had chest pain on inspiration. CT chest was performed and preliminary report shows bilateral emphysematous changes, likely consolidation in the left lower lobe and no evidence of fracture. Initially patient was about discharge with oral antibiotic for pneumonia but unfortunately her oxygen need has been increased before discharge. Patient baseline 4 L nasal cannula at rest but currently she is on 6 L. patient is admitted in the setting of pneumonia. Patient quit smoking 2004. Patient ambulates by wheelchair due to chronic emphysema. Patient was on chronic steroid but stopped about a year ago. Patient was admitted for left lower lobe consolidation. Likely pneumonia. Started on levofloxacin IV, bronchodilators, guaifenesin and encouraged oral intake. WBC continued to down trend throughout hospitalization. Breathing improved significantly over next few days of hospitalization. Chest/abdomen CT scan however showed nondisplaced fracture of sternum. Orthopedics consulted, agree with that conservative management is best at this time. Given the patient has had increased pain with movement, treatment options were reviewed and patient continued to agree with conservative care and pain management. Orthopedics cleared her for discharge from their standpoint with appropriate follow-up in 1 month. Patient remained afebrile with improving leukocytosis, O2 saturation 93% on 4 L nasal cannula which is her baseline. Patient states that she feels is over breathing has improved completely back to baseline. She is otherwise hemodynamically stable for discharge at this time, will give her an additional regimen of Augmentin for antibiotic coverage for pneumonia. Will give additional Earle for p.r.n. pain control for sternal fracture. Plan for discharge home at this time. Status at Discharge Functional status at discharge: independent ambulation Overall status at discharge: patient is progressing back to baseline Time Spent with Patient Time attestation: Total time spent providing and/or coordinating discharge services: 37 Exam Narrative: GENERAL: Well-appearing, well-nourished, HEAD: Normocephalic, atraumatic. EYES: Non injected, non icteric ENT: Nares clear, no rhinorrhea or epistaxis. Gross auditory acuity intact. NECK: Supple. No meningismus. CHEST: Speaking in full sentences. No respiratory distress. Poor air movement but without appreciable wheezes at this time. Saturating 95-96% on 4LPM NC. Mild TTP of sternum. Not reproducible with left anterior rib palpation though breast tissue in the way. No obvious bony deformity or subcutaneous emphysema/crepitus. HEART: Regular rate and rhythm. . ABDOMEN: Soft, nondistended. No rigidity or guarding. Not peritoneal EXTREMITIES: Normal range of motion. SKIN: Warm, dry, no rash. NEURO: No focal deficits. Alert and oriented. Answering questions. Following commands. Normal speech without aphasia or dysarthria. PSYCH: Normal mood and affect. DS: Data Data Completed and Pending Labs on day of discharge: Labs from last 24 hours 03/05/25 05:01 WBC 10.9 H RBC 3.89 L Hgb 8.0 L Hct 29.6 L MCV 76.1 L MCH 20.6 L MCHC 27.0 L RDW 16.4 H Plt Count 340 MPV 10.3 Immature Gran % (Auto) 0.6 H Neut % (Auto) 80.1 H Lymph % (Auto) 9.2 L Mills % (Auto) 6.6 Eos % (Auto) 3.0 Baso % (Auto) 0.5 Lymph # (Auto) 1.00 [place] # (Auto) 0.7 H Eos # (Auto) 0.3 Baso # (Auto) 0.1 Abs Immat Gran (auto) 0.06 H Absolute Neuts (auto) 8.7 H Absolute Nucleated RBC 0.000 Band Neutrophils % Not Reportable Nucleated RBC % 0.0 Platelet Estimate Adequate Hypochromasia 1+ Anisocytosis 1+ Microcytosis 1+ Ovalocytes 1+ Schistocytes None seen Sodium 132 L Potassium 4.2 Chloride 99 Carbon Dioxide 30 Anion Gap 3 L BUN 11 Creatinine 0.74 Estim Creat Clear Calc 59 Estimated GFR > 60 Glucose 120 H Calcium 8.6 Total Bilirubin 0.2 AST 24 ALT 12 Alkaline Phosphatase 113 Total Protein 6.0 L Albumin 3.3 L Discharge Plan Discharge Attending physician on discharge: Maya Boyd Consulting providers: Jim Sims; Glenn Radford Discharging Clinician: Jim Sims Anticipated Discharge Date/Time: 03/05/25 12:38 Patient Disposition: Home Activity: no straining Diet: heart healthy Discharge Instructions: Discharge disposition: Home Take medications as prescribed. You will be prescribed 5 days of Augmentin. Take this twice daily for the entire course. Monitor blood pressures Take caution while standing, rising, or moving Change positions slowly taking a break between each position change If you standing feel dizzy sit back down and take a break Encouraged to continue with yearly vaccinations Return to the emergency department if he developed sudden shortness of breath, chest pain, nausea, vomiting, upset stomach or intractable diarrhea Return to the emergency department if you develop fever greater than 101.5 Follow-up with the primary care physician within 1-2 [address] up [address] Dr. Radford of Orthopedics in 1 month in regards to your Sternal fracture Thank you for choosing [facility] for your healthcare needs Patient Instructions: Antibiotic Form Patient Language: Faroese Stand Alone Forms: General Discharge Information Follow-up/Referrals: Glenn Radford MD [Physician, Orthopedics] Lisa,Naldo Callahan MD [Primary Care Provider, Unknown] Discharge Medications: New hydrocodone-acetaminophen 5-325 mg Tablet 1 tablet PO Q4H PRN (Reason: Pain Rated 4-6) Qty: 6 0RF amoxicillin-pot clavulanate 875-125 mg tablet 1 tablet PO Q12H 5 Days Qty: 10 0RF Continued lisinopril 20 mg tablet 20 mg PO BID amlodipine 5 mg tablet 5 mg PO DAILY buspirone 10 mg tablet 10 mg PO BID budesonide 0.5 mg/2 mL suspension for nebulization 0.5 mg inhalation DAILY Qty: 60 5RF Rx Instructions: rinse and spit atorvastatin 20 mg tablet 20 mg PO DAILY cetirizine [Zyrtec] 10 mg tablet 5 mg PO DAILY PRN (Reason: allergy symptoms) tolterodine 4 mg capsule,extended release 24hr 4 mg PO DAILY levothyroxine 112 mcg tablet 112 mcg PO DAILY omeprazole magnesium 20 mg capsule,delayed release(DR/EC) 20 mg PO DAILY citalopram 40 mg tablet 20 mg PO BID bupropion HCl 100 mg tablet 100 mg PO BID aspirin [Adult Low Dose Aspirin] 81 mg tablet,delayed release (DR/EC) 81 mg PO DAILY pramipexole 1 mg tablet 1 mg PO TID trazodone 100 mg tablet 100 mg PO QHS PRN (Reason: sleep) alendronate 70 mg tablet 70 mg PO WEEKLY Patient Comments: budesonide 0.25 mg/2 mL suspension for nebulization 0.25 mg inhalation Q12H albuterol sulfate 90 mcg/actuation HFA aerosol inhaler 2 puff INHALATION Q4H PRN (Reason: shortness of breath or wheezing) azelastine 137 mcg (0.1 %) spray,non-aerosol 1 spray intranasal Q12H Qty: 30 5RF Rx Instructions: administer into each nostril fluticasone propionate 50 mcg/actuation spray,suspension See Rx Instructions .ROUTE .COMPLEX Qty: 16 11RF Dose Instruction: USE ONE SPRAY IN EACH NOSTRIL TWICE DAILY FOR 30 DAYS Rx Instructions: USE ONE SPRAY IN EACH NOSTRIL TWICE DAILY FOR 30 DAYS arformoterol [Brovana] 15 mcg/2 mL solution for nebulization 2 ml inhalation BID Qty: 120 11RF Yupelri 175 mcg/3 mL solution for nebulization 175 mcg inhalation DAILY Qty: 90 11RF roflumilast 500 mcg tablet See Rx Instructions .ROUTE .COMPLEX Qty: 30 11RF Dose Instruction: TAKE 1 TABLET BY MOUTH DAILY Rx Instructions: TAKE 1 TABLET BY MOUTH DAILY zafirlukast 20 mg tablet See Rx Instructions .ROUTE .COMPLEX Qty: 60 11RF Dose Instruction: TAKE 1 TABLET BY MOUTH EVERY 12 HOURS. WAIT 1 TO 2 HOURS AFTER FOOD Rx Instructions: TAKE 1 TABLET BY MOUTH EVERY 12 HOURS. WAIT 1 TO 2 HOURS AFTER FOOD levalbuterol HCl 1.25 mg/3 mL solution for nebulization See Rx Instructions .ROUTE .COMPLEX Qty: 825 3RF Dose Instruction: INHALE THE CONTENTS OF 1 VIAL VIA NEBULIZER THREE TIMES DAILY NEEDED FOR SHORTNESS OF BREATH OR WHEEZING. Rx Instructions: INHALE THE CONTENTS OF 1 VIAL VIA NEBULIZER THREE TIMES DAILY NEEDED FOR SHORTNESS OF BREATH OR WHEEZING. Sutab 1.479-0.188- 0.225 gram tablet See Rx Instructions PO PER PKG DIR Qty: 24 0RF Rx Instructions: PO PER PKG DIR Date of admission: 03/04/25 09:21 Primary Care Provider: Lisa,Naldo Callahan Admitting Provider: Yinka Ann Attending physician on admission: Yinka Ann Condition: Stable
== END 2025-03-05 15:48 | disposition home or self-care (01) | DRG 194 ==
LOC: ANHED 09:02 → ANH3MEDSUR 09:35
PROVIDERS: Emergency Medicine; Admitting Provider General Practice; Emergency Provider Student in an Organized Health Care Education/Training Program; PCP Internal Medicine; Visit Provider Physician Assistant
DX: J18.1 Lobar pneumonia, unspecified organism (principal); J44.0 Chronic obstructive pulmonary disease with (acute) lower respiratory infection; S22.22XA Fracture of body of sternum, initial encounter for closed fracture; I10 Essential (primary) hypertension; E78.5 Hyperlipidemia, unspecified; G47.33 Obstructive sleep apnea (adult) (pediatric); F41.9 Anxiety disorder, unspecified; W06.XXXA Fall from bed, initial encounter; Z20.822 Contact with and (suspected) exposure to COVID-19; Z99.81 Dependence on supplemental oxygen; Z79.82 Long term (current) use of aspirin; Z87.891 Personal history of nicotine dependence
CPT/HCPCS: 36415; 71250; 74150; 80053; 83690; 84484; 85025; 85610; 85730; 87040; 87637; 93005; 94640; 96374; 96375; 96376; 99285; A9270; G0378; J0696; J1885; J1956; J2270; J2405

== ENCOUNTER 2025-05-10 14:49 | Outpatient (CLI) | payer MEDICARE, MEDICAID, SELFPAY ==
--- OUTSIDE RECORDS SUMMARY | 2025-05-10 14:54 | XMS_ITS | Clinical Summary ---
Author Organization [facility] Address [address] [place] [address] [address] Mechanical Engineer Name Role Phone Naldo Gonzalez MD Primary Care Provider [phone] Allergies No known active allergies Medications levothyroxine [...] 10/05/2018, 10/09/2013, 08/06/2007 COVID-19 Vaccine ( season) 2025 07/07/2023, 04/20/2022, 11/25/2021, Additional history exists Influenza Adult (#1) 2025 06/16/2019, 03/27/2018, 05/25/2016, Additional history exists RSV Immunization or 60+ Years (1 - 1-dose 75+ series) 2028 Hepatitis A Vaccines Aged Out No long er eligible based on patient's age to complete this topic Meningococcal B Vaccine Aged Out No l onger eligible based on patient's age to complete this topic Meningococcal Vaccine Aged Out No emy ibrahima eligible based on patient's age to complete this topic RSV Immunizations Under 20 Months Aged Out No longer eligible based on patient's age to complete this topic Medical Devices Implanted Type Area Grill Cook Device Identifier Shelf Expiration Date Model / Serial / Lot Tecnis 1 Piece Iol Implanted:Qty: 1 on 10/17/2023 by Shlomo Gonsales MD at [facility] Left: Eye [employer] 02/08/2026 / [id number] / Tecnis 1-Piece Iol With Tecnis Simplicity Delivery System Implanted:Qty: 1 on 12/12/2023 by Shlomo Gonsales MD at [facility] 03/08/2026 / [id number] / Insurance [facility] [place] [id number] MEDICA[place] [facility] MEDICARE Care Teams [address] Mechanical Engineer Relationship Specialty Start Date End Date Naldo Gonzalez MD PCP - General INTERNAL MEDICINE 10/17/23
--- OUTSIDE RECORDS SUMMARY | 2025-05-10 14:54 | XMS_ITS | Data Portability ---
Author Organization [place] [facility], Main Office Address [address] [place] [address] Care Team Providers Care [employer] Name Role Phone NOLAN GONZALEZ Internal Medicine ADRIAN ALBRIGHT Manager Sign NISA LUNA Survey Questionnaire Designer LISSETTE LARSEN Argon Tester Assessment No assessment recorded. Plan of Treatment Reminders Order Date Submit Date Provider Last Modified By Organization Details Last Modified Time Details Appointments Any 15 2025 11:30A M Nolan Gonzalez MD Not available Not available Not available Lab vitamin D, 25-hydrox y, total, serum [address] (Lab), [address] [place] [address], [address], 01/15/2025 15:05:58 CBC w/ auto diff [address] (Lab), [address] [place] [address], [address], 01/15/2025 15:05:58 CMP, serum or plasma [address] (Lab), [address] [place] [address], [address], 01/15/2025 15:05:58 lipid panel, serum 2024 025 [facility] (Lab), [address] [place] [address], [address], 12/10/2024 14:20:07 TSH, serum or plasma 2024 025 [email or web address] [facility] (Lab), [address], [place], [address], 01/15/2025 15:05:57 Referral None recorded. Procedures None recorded. Surgeries None recorded. Imaging CT, chest, w/o contrast 2024 025 [facility], [address], [address], [place], [address], 04/24/2025 14:37:14 Medication Orders lidocaine 5 % topical patch 2024 025 [id number], [address] [facility], [place], [place], [id number], 03/07/2025 14:30:44 Patient Targets Encounter Date Encounter Id Patient Goals Patient Target Last Modified By Organization Details Last Modified Time 01/25/2024 [id number] New glasses on Not available 01/25/2024 15:33:02 Patient Instructions Encounter Date Encounter Id Patient Instructions Last Modified By Organization Details Last Modified Time 01/25/2024 [id number] Review of meds and when to take them Not available 01/25/2024 15:33:11 03/07/2025 [id number] Please finish course of antibiotics and stay hydrated. Please call office with any questions or concerns. [email or web address] Not available 03/08/2025 10:07:07 Reason for Referral None Reported. Results Created Date Observation Date Name Description Value Unit Range Abnormal Flag Note LastModifiedBy Organization Detail LastModifiedTime 06/01/2005/14/2024 US, echoc ardio gram No observ ation record ed. BARCODE Not Available 2023 18:19:51 12/27/19 25 12/25/2024 MAMMO , scree baljeet, digit al, bilat eral No observ ation record ed. [email or web address] Not Available 2024 16:30:57 Result Notes None recorded. Problems Name Problem SNOMED Code Status Onset Date Resolution Date Notes Provider Name and Address Organization Details Recorded Time Chronic obstructiv e pulmonary disease 71456299 Active Not Available [facility] 3 04:47:56 History of transient ischemic attack 049800076 Active Not Available [facility] 3 04:47:56 Acute exacerbati on of chronic obstructiv e pulmonary disease 638686125 Completed Not Available [facility] 3 04:47:56 Genuine stress incontinen ce 25166141 Completed Not Available [facility] 3 04:47:56 Eruption 471723215 Completed Not Available [facility] 3 04:47:57 Restless legs syndrome 57393652 Active Not Available [facility] 3 04:47:57 Vitamin D deficiency 21178076 Active Not Available [facility] 3 04:47:57 Hypothyroi dism 17706886 Active Not Available [facility] 3 04:47:57 Obesity 871590754 Active Not Available [facility] 3 04:47:58 Anxiety 26734649 Active Not Available [facility] 3 04:47:58 Hyperlipid emia 37020439 Active Not Available [facility] 3 04:47:58 Solitary nodule of lung 665451390 Active 2018 Not Available [facility] 3 04:47:58 Osteoporos is 82332889 Active 2018 Not Available [facility] 3 04:47:58 Depressive disorder 69440122 Active 2019 Not Available [facility] 3 04:47:57 Osteoarthr itis 205633387 Active 2019 Not Available [facility] 3 04:47:57 Sleep apnea 85269343 Active 2019 Not Available [facility] 3 04:47:58 Insomnia 705322375 Active 2021 Not Available [facility] 3 04:47:56 Screening mammograph y Completed 202101/08/2022 Not Available [facility] 3 04:47:56 Adult health examinatio n Active 2021 Nolan Gonzalez MD [address], [address], [place], [address] , [facility] 3 13:12:05 Screening for disorder Completed 202101/08/2022 Not Available [facility] 3 04:47:57 Administra tion of influenza vaccine Completed 202101/08/2022 Not Available [facility] 3 04:47:58 Finding of body mass index 489924383 Completed 202106/16/2022 Not Available [facility] 3 04:47:57 Urinary symptoms 101886565 Completed 202106/16/2022 Not Available [facility] 3 04:47:57 Acute urinary tract infection 649939596 Completed 202106/16/2022 Not Available [facility] 3 04:47:58 Hypertrigl yceridemia 834255763 Active 2022 ANDERSON Castellano, [facility] 3 07:58:49 Hearing loss 04374408 Active 2022 Nolan Gonzalez MD [address], [address], [place], [address] , [facility] 3 13:12:10 Essential hypertensi on 02795798 Active 2023 Becki tracey RMA null, [place] [facility] [place] [facility] 5 07:56:29 Benign essential hypertensi on 7493741 Active 2024 Nolan Gonzalez MD [address], [address], [place], [address] , [facility] 5 11:18:45 Anemia 937540030 Active 2024 Brandi Troy MA null, [place] [facility] [place] [facility] 5 15:11:14 Closed fracture of sternum 76067037 Active 2024 Nolan Gonzalez MD [address] [facility], [address], [place], [address] , [facility] [employer] [facility] [employer] [facility] 5 12:54:45 Pneumonia 860395017 Active 2024 ROSALINE Stewart [address], [address], [place], [address] , [facility] [employer] [facility] 5 16:21:29 Problem Notes None recorded. Procedures Surgical History Date Name Laterality Status Provider Name and Address Organization Details Recorded Time 4 Chronic care management services completed Lissette Larsen RN [facility] [employer] [facility] 01/25/2024 15:42:31 4 Chronic care management services completed Lissette Larsen RN [facility] [employer] [facility] 12/27/2023 13:59:32 4 Chronic care management services completed Lissette Larsen RN [facility] [employer] [facility] 11/22/2023 12:22:25 4 Chronic care management services completed Lissette Larsen RN [facility] [employer] [facility] 11/17/2023 12:04:02 4 Medicare Wellness CPT Code, subsequent completed Tracey Khan RN [facility] [employer] [facility] 11/16/2023 12:47:26 4 Advanced Care Planning completed Tracey Khan RN [facility] [employer] [facility] 11/16/2023 12:51:06 4 Chronic care management services completed ROSALINE Godoy [address] [facility], [facility] [address], [place], [address], [facility] [employer] [facility] 11/10/2023 14:33:57 4 Cataract surg w/iol 1 stage completed Lissette Larsen RN [facility] [employer] [facility] 11/22/2023 11:58:56 1 Most Recent Bone Density completed Not Available [facility] 08/18/2022 04:41:46 Tubal Ligation completed Not Available [facility] 08/18/2022 04:41:48 Bladder completed Not Available [facility] 06/2022 04:41:48 Cataract surg w/iol 1 stage completed Lissette Larsen RN [place] [facility] [place] [facility] 11/22/2023 11:59:22 Imaging Results None recorded. Procedure Notes None recorded. Medical Equipment None Reported. Allergies Allergen ID Allergen Name Allergen Category Reaction Reaction Severity Criticality Documentation Date Start Date Code Code System Note Provider Name and Address Organization Details Recorded Time 7065 albuterol medicatio n Not available Not available Not available 08/18/2022 435 RxNorm PALPI TATIO NS Not Available [facility] 04:55:32 Medications Name Sig Start Date Stop [...] Not Available Not Available No t Available benzonata te 200 mg capsule TAKE 1 CAPSULE BY MOUTH THREE TIMES DAILY NEEDED FOR COUGH 08/11 completed Not Available Not Available Not Available tolterodi ne ER 4 mg capsule,e xtended release 24 hr TAKE 1 CAPSULE BY MOUTH EVERY DAY active Not Available Not Available No t Available hydrocodo ne 5 mg-acetam inophen 325 mg tablet TAKE 1 TABLET BY MOUTH EVERY 4 HOURS NEEDED 03/07 completed patient stopped taking Not Available Not Available Not Available lisinopri l 20 mg tablet TAKE 1 TABLET BY MOUTH TWICE DAILY active Not Available Not Available No t Available alendrona te 70 mg tablet TAKE 1 TABLET BY MOUTH 1 TIME A WEEK DIRECTED 2024 active SAMANTHA 03/07/25 NOV 04/24/25 ok to rf Not Available [...] Not Available Not Available No t Available ciproflox acin 500 mg tablet TAKE [...] TABLET BY MOUTH TWICE DAILY 2024 active Not Available Not Available Not Avai lable lidocaine 5 % topical patch Apply by topical route for 15 days. active Not Available Not Available No t [...] TABLET BY MOUTH EVERY 12 HOURS. WAIT 1-2 HOURS AFTER EATING TO TAKE. active Not Available Not Available No t Available budesonid e 0.25 mg/2 mL suspensio n for nebulizat ion INHALE 2 ML VIA NEBULIZA TION TWICE DAILY. RINSE AND SPIT AFTER USE. active Not Available Not Available No t Available budesonid e 0.5 mg/2 mL suspensio n for nebulizat ion INHALE THE CONTENTS OF 1 VIAL VIA NEBULIZE R ONCE DAILY DIRECTED THEN RINSE AND SPIT AFTER TREATMEN T. active Not Available Not Available No t Available [address] st 10 mg tablet 11/18 [...] SPRAY IN EACH NOSTRIL EVERY 12 HOURS 03/07 completed Not Available Not Available Not Available levofloxa maite 500 mg tablet TK [...] SHORTNES S OF BREATH 2024 active SAMANTHA 04/24/25 NOV 08/21/25 ok to rf Not Available Not Available Not Available fluticaso ne propionat e 50 mcg/actua tion nasal spray,lissa pension SHAKE LIQUID AND USE 1 SPRAY IN EACH NOSTRIL TWICE DAILY active Not Available Not Available No t Available levothyro xine 112 mcg tablet TAKE 1 TABLET BY MOUTH EVERY DAY active Not Available Not Available No t Available amoxicill in 875 mg-potass ium clavulana te 125 mg tablet TAKE 1 TABLET BY MOUTH EVERY 12 HOURS FOR 5 DAYS active Not Available Not Available No t Available magnesium 250 mg (as magnesium oxide) [...] Not Available No t Available Fluzone High-Dose (PF) 180 mcg/0.5 mL intramusc ular syringe ADMINIST ER 0.5ML IN THE MUSCLE DIRECTED 06/22 completed Not Available Not Available Not Available Sutab 1.479-0.1 88-0.225 gram tablet FOLLOW PACKAGE DIRECTIO NS active Not Available Not Available No t Available Vitals Date Recorded Body height Body mass index (BMI) Body weight Respiratory rate Body temperature Oxygen saturation Heart rate Systolic And Diastolic Provider Name and Address Organization Details Last Updated DateTime 5 162.56 cm 30.9 kg/m2 80324.2 7 g 19 /min 98.1 [degF] 95 % 93 /min 128/78 mm[Hg] Jing Elyssa Hotalot [facility] 5 11:14:56 Date Recorded Body height Heart rate Systolic And Diastolic Provider Name and Address Organization Details Last Updated DateTime 01/25/2024 162.56 cm 85 /min 130/74 mm[Hg] Lissette Larsen RN [place] [facility] 01/25/2024 15:09:56 Date Recorded Body height Body temperature Heart rate Oxygen saturation Inhaled oxygen flow rate Provider Name and Address Organization Details Last Updated DateTime 5 162.56 cm 97.8 [degF] 110 /min 90 % 4 L/min Soni Melendez [facility] 5 14:18:16 Date Recorded Body height Body mass index (BMI) Body weight Body temperature Heart rate Oxygen saturation Inhaled oxygen flow rate Systolic And Diastolic Provider Name and Address Organization Details Last Updated DateTime 4 162.56 cm 30.2 kg/m2 19953.2 6 g 98 [degF] 89 /min 96 % 4 L/min 120/74 mm[Hg] Becki smith DINARuss [facility] 4 12:46:11 Date Recorded Body height Body mass index (BMI) Body weight Body temperature Heart rate Oxygen saturation Systolic And Diastolic Provider Name and Address Organization Details Last Updated DateTime 5 162.56 cm 29.7 kg/m2 70849.4 8 g 97 [degF] 83 /min 93 % 144/76 mm[Hg] Becki smith DINARuss [facility] 5 12:32:22 Social History Question Answer Notes LastModified by Organization Details LastModified Time Tobacco Smoking Status Former Smoker 2004 Lavern Eckert [facility] 06/09/2023 12:16:07 Do You Have An Advance Directive? No Info Given [email or web address] Information not available 11/16/2023 Are You Blind Or Do You Have Difficulty Seeing? No Information not available 06/09/2023 Is Blood Transfusion Acceptable In An Emergency? Yes Information not available 11/22/2023 What Is Your Level Of Caffeine Consumption? Moderate MIGRATION.0301 [id number] Information not available 08/18/2022 How Much Tobacco Do You Chew? None MIGRATION.0301 [id number] Information not available 08/18/2022 In The 14 Days Before Symptom Onset, Have You Had Close Contact With A Laboratory-conf grupo TONGID-19 While That Case Was Ill? No Information not available 06/09/2023 In The 14 Days Before Symptom Onset, Have You Had Close Contact With A Person Who Is Under Investigation For COVID-19 While That Person Was Ill? No Information not available 06/09/2023 Are You Deaf Or Do You Have Serious Difficulty Hearing? Yes Has Hearing Aids [email or web address] Information not available 11/16/2023 What Type Of Diet Are You Following? CARDIAC MIGRATION.0301 [id number] Information not available 08/18/2022 Which Illicit Or Recreational Drugs Have You Used? None Information not available 06/09/2023 Have There Been Any Changes To Your Family Or Social Situation? No [email or web address] Information not available 11/16/2023 What Is The Fluoride Status Of Your Home? Unknown Information not available 06/09/2023 When Did You Quit Smoking? 11-15yearssincelas tcigarette Information not available 06/09/2023 Are There Any Guns Present In Your Home? No Information not available 06/09/2023 Do You Use Insect Repellent Routinely? No Information not available 06/09/2023 Where Do You Live? SingleLevelHouse [email or web address] Information not available 11/16/2023 Advance Directive- Providers Has Reviewed Directive And Consents To Follow Them (insert Provider Name With Any Objectives In Notes Field) No Pt Will Get This Done At December Appt Information not available 11/22/2023 Are You Able To Care For Yourself? No [email or web address] Information not available 11/16/2023 Are You Deaf Or Do You Have Serious Difficulty Hearing? Yes Information not available 11/16/2023 General Stress Level? Moderate Information not available 11/22/2023 Live Alone Of With Others? With Others [email or web address] Information not available 11/16/2023 Do You Have A Medical Power Of Magazine Journalist? No [email or web address] Information not available 11/16/2023 What Was The Date Of Your Most Recent Tobacco Screening? 11/16/2023 [email or web address] Information not available 11/16/2023 Do You Have Any Pets? Yes [email or web address] Information not available 11/16/2023 What Is Your Relationship Status? MIGRATION.0301 [id number] Information not available 08/18/2022 Do You Use [...] Much Tobacco Do You Smoke? No MIGRATION.0301 [id number] Information not available 08/18/2022 Do You Use [...] your level of alcohol consumption? None MIGRATION.0301 [id number] Information not available 08/18/2022 Do you have transportation difficulties? No Son is her transportation and help Information not available 11/22/2023 Are you able to walk independently without assistance or assistive devices? YESWOREST long distances uses wheelchair due to shortness of breath Information not available 06/09/2023 Do you have difficulty doing errands alone? Yes Information not available 06/09/2023 Are you able to care for yourself independently? Yes Information not available 06/09/2023 What is your occupation? n/a Information not available 06/09/2023 Do you have difficulty dressing, bathing, grooming, or toileting? Yes has to sit down Information not available 06/09/2023 What is your exercise level? None [email or web address] Information not available 11/16/2023 Mental Status Question Answer Note LastModified by Organizat ion Details LastModified Time Do you feel stressed (tense, restless, nervous, or anxious, or unable to sleep at night)? [id number] Information not available 06/09/2023 Do you have difficulty concentrating, remembering or making decisions? No Information no t available 06/09/2023 Family History Relationship Description Onset Age of this Age Resolved Age Notes LastModified by Organization Details LastModified Time Mother Essential hypertension MIGRATION.242 [id number] Not available 08/18/2022 04:41:52 Brother Essential hypertension MIGRATION.528 [id number] Not available 08/18/2022 04:41:52 Father Essential hypertension MIGRATION.892 [id number] Not available 08/18/2022 04:41:52 Son Malignant neoplastic disease MIGRATION.655 [id number] Not available 08/18/2022 04:41:52 Daughter Malignant neoplastic disease MIGRATION.343 [id number] Not available 08/18/2022 04:41:52 Medical History Condition [...] PF 2 completed Lissette Larsen RN null, [place] [facility] 01/25/2024 15:10:35 COVID-19, mRNA, LNP-S, PF, 30 mcg/0.3 mL dose 1 completed Lissette Larsen RN null, [facility] 01/25/2024 15:10:35 COVID-19, mRNA, LNP-S, PF, 30 mcg/0.3 mL dose, chelo-sucrose 2 completed Lissette Larsen RN null, [facility] 01/25/2024 15:10:35 COVID-19, mRNA, LNP-S, bivalent, PF, 30 mcg/0.3 mL dose 2 completed Lissette Larsen RN null, [facility] 01/25/2024 15:10:35 Influenza, high-dose, trivalent, PF 9 completed Lissette Larsen RN null, [facility] 01/25/2024 15:10:35 Influenza, split virus, trivalent, preservative 2 completed Lissette Larsen RN null, [facility] 01/25/2024 15:10:35 Influenza, split virus, trivalent, preservative 3 completed Lissette Larsen RN null, [facility] 01/25/2024 15:10:35 Influenza, split virus, trivalent, PF 5 completed Lissette Larsen RN null, [facility] 01/25/2024 15:10:35 Influenza, split virus, trivalent, PF 4 completed Lissette Larsen RN null, [facility] 01/25/2024 15:10:35 Influenza, split virus, quadrivalent, PF 8 completed Lissette Larsen RN null, [facility] 01/25/2024 15:10:35 COVID-19, mRNA, LNP-S, PF, chelo-sucrose, 30 mcg/0.3 mL 4 completed Not Available [facility] 04/24/2025 12:26:47 Influenza, high-dose, trivalent, PF 4 completed Not Available [facility] 04/24/2025 12:26:47 COVID-19, mRNA, LNP-S, PF, chelo-sucrose, 30 mcg/0.3 mL 4 completed Not Available [facility] 04/24/2025 12:26:47 Pneumococcal conjugate PCV20, polysaccharide HIG262 conjugate, adjuvant, PF 4 completed Not Available [facility] 04/24/2025 12:26:47 COVID-19, mRNA, LNP-S, PF, 30 mcg/0.3 mL dose 1 completed Lissette Larsen RN null, [facility] 01/25/2024 15:10:35 COVID-19, mRNA, LNP-S, PF, 30 mcg/0.3 mL dose 1 completed Lissette Larsen RN null, [facility] 01/25/2024 15:10:35 Influenza, high-dose, trivalent, PF 5 completed Lissette Larsen RN null, [facility] 01/25/2024 15:10:35 Influenza, high-dose, trivalent, PF 3 completed Lissette Larsen RN null, [facility] 01/25/2024 15:10:35 Influenza, high-dose, trivalent, PF 1 completed JB Louie, [facility] 01/25/2024 15:10:35 COVID-19, mRNA, LNP-S, PF, 100 mcg/0.5mL dose or 50 mcg/0.25mL dose 2 completed Lissette Larsen RN null, [facility] 01/25/2024 15:10:35 COVID-19, mRNA, LNP-S, PF, 100 mcg/0.5mL dose or 50 mcg/0.25mL dose 1 completed JB Louie, [facility] 01/25/2024 15:10:35 Influenza, split virus, quadrivalent, preservative 9 completed JB Louie, [facility] 01/25/2024 15:10:35 Influenza, high-dose, trivalent, PF 0 completed Lissette Larsen RN [facility], [facility] 01/25/2024 15:10:35 pneumococcal polysaccharide PPV23 8 completed Not Available [facility] 08/18/2022 04:55:22 Influenza, high-dose, quadrivalent, PF 1 completed Not Available [facility] 08/18/2022 04:55:22 Influenza, split virus, quadrivalent, preservative 6 completed Not Available [facility] 08/18/2022 04:55:22 Pneumococcal conjugate PCV 13 9 completed Not Available [facility] 08/18/2022 04:55:22 pneumococcal polysaccharide PPV23 4 completed Not Available [facility] 08/18/2022 04:55:22 Influenza, high-dose, quadrivalent, PF 3 completed Nolan Gonzalez MD [address] [place] [address], [place], [address], [facility] 06/09/2023 13:09:19 Past Encounters Encounter ID Performer Location Encounter Start Date Encounter Closed Date Diagnosis/Indication Diagnosis SNOMED-CT Code Diagnosis ICD10 Code Diagnosis IMO Codes Diagnosis Note [id number] Nolan Gonzalez MD N[facility] Internal Med [address] [facility] [place] [address] 11/13/2020 00:00:00 11/13/2020 13:03:07 [id number] Nolan Gonzalez MD [facility] Internal Med [facility] [address] [place] [address] 03/19/2021 00:00:00 03/19/2021 13:32:43 [id number] MD ANGUS [facility] Internal Med [facility] [address] [place] [address] 08/11/2021 00:00:00 08/11/2021 12:59:14 [id number] MD ANGUS [facility] Internal Med [address] [place] [address] 01/14/2022 00:00:00 01/14/2022 12:18:04 [id number] Nolan Gonzalez MD [facility] Internal Med [address] [facility] [place] [address] 06/22/2022 00:00:00 06/22/2022 13:23:15 [id number] Nolan Gonzalez MD [facility] Internal Med [address] [facility] [place] [address] 11/25/2022 11:20:07 11/25/2022 12:15:51 Benign essential hypertension 1288417 I10 under control Osteoporosis 05481057 M8 1.0 on meds, Dexa 06/09 Anxiety 00291639 F41.9 meds help Depressive disorder 3548 9007 F32.9 stable with meds Hypothyroidism 66061775 E03.9 stable Hyperlipidemia 73028156 E78.5 stable Osteoarthritis 814352231 M19.90 under control Restless l egs syndrome 03762441 G25.81 better with meds Sleep apnea 65991287 G47 .30 On CPAP Chronic ob structive pulmonary disease 04742141 J44.9 stable Vitamin D deficiency 347 46992 E55.9 on OTC Insomnia 012443703 G47.0 0 better Hypertriglyceridemia 302 731722 E78.1 advised to lose weight watch and diet Adult heal th examination 714955568 Z00.00 Colonoscop y 04/03 at [facility] - report requested and no records was foundDexa- 05/2021Mam mo- 07/2022LDCT -01/2021, pulm nodulePneu movax 2007 and 2013Prevna r 09/2018FLU - [facility]COVID- 08/20/20, 09/10/20, 04/05/21, 11/25/21 Hearing loss 44886774 H9 1.93 Long-term drug therapy 397770517 Z79.574 [id number] Nolan Gonzalez MD S_[facility] Internal Med [address] [facility] [place] [address] 06/09/2023 12:15:54 06/09/2023 13:11:44 Benign essential hypertension 1942767 I10 not under control Osteoporosis 61354493 M8 1.0 on meds, Dexa next time Anxiety 31956308 F41.9 meds help Depressive disorder 3548 9007 F32.9 stable with meds Hypothyroidism 45480203 E03.9 stable Hyperlipidemia 34064449 E78.5 stable Osteoarthritis 055019003 M19.90 under control Restless l egs syndrome 75181061 G25.81 better with meds Sleep apnea 14597279 G47 .30 On CPAP Chronic ob structive pulmonary disease 15177954 J44.9 stable Vitamin D deficiency 347 35119 E55.9 on OTC Insomnia 501620080 G47.0 0 better Hypertriglyceridemia 302 125738 E78.1 advised to lose weight watch and diet Adult heal th examination 274688574 Z00.00 Colonoscop y 04/03 at [facility] - report requested and no records was foundDexa- 05/2021Mam mo- 07/2022LDCT -01/2021, pulm nodulePneu movax 2007 and 2013Prevna r 09/2018FLU - 06/09/2023 COVID- 08/20/20, 09/10/20, 04/05/21, 11/25/21 Administra tion of influenza vaccine [id number] Z23 [id number] Nolan Gonzalez MD [facility] Internal [address] [address] 08/24/2023 11:30:53 08/24/2023 12:35:24 Pre-surgery evaluation 597220987 Z01.818 no restrictio n Chronic ob structive pulmonary disease 03268498 J44.9 stable Essential hypertension 78970169 I10 under control [id number] Nolan Gonzalez MD [facility] Internal Med [facility] [address] [place] [address] 09/30/2023 14:26:45 09/30/2023 15:19:10 Adult health examination 322936211 Z00.00 here for surgical clearancem ads reviewedec ho done at [facility] yesterday is reviewed and copy scanned to [...] about coughing during the procedure Essential hypertension 86344972 I10 Hyperlipidemia 66126411 E78.5 Chronic ob structive pulmonary disease 67104957 J44.9 Hypothyroidism 56177723 E03.[id number] [facility] Internal Med [facility] [address] [facility] [place] [address] 11/10/2023 13:45:55 11/10/2023 17:01:[id number] [facility] Internal [facility] [address] [facility] [place] [address] 11/16/2023 12:04:43 11/16/2023 12:46:03 Benign essential hypertension 1795824 I10 add amlodipine Osteoporosis 30527129 M8 1.0 on meds, Anxiety 61440247 F41.9 meds help Depressive disorder 3548 9007 F32.9 stable with meds Hypothyroidism 54620233 E03.9 stable Hyperlipidemia 21560772 E78.5 stable Osteoarthritis 137581540 M19.90 under control Restless l egs syndrome 66226467 G25.81 better with meds Sleep apnea 17462320 G47 .30 On CPAP Chronic ob structive pulmonary disease 13106226 J44.9 stable Vitamin D deficiency 347 09689 E55.9 on OTC Insomnia 293669930 G47.0 0 better Hypertriglyceridemia 302 453189 E78.1 advised to lose weight watch and diet Adult [facility] th examination 324202367 Z00.00 Colonoscop y 04/03 at [facility] - report requested and no records was foundDexa- 08/13Mammo- 09/07/2023 LDCT-02/06 21, pulm nodulePneu movax 2007 and 2013Prevna r 09/2018FLU - 06/09/2023 COVID- 08/20/20, 09/10/20, 04/05/21, 11/25/21 Screening for disorder 743048287 Z13.9 [id number] [facility] Internal Med [address] [place] [address] 11/17/2023 11:59:21 02/27/2024 17:59:27 Chronic obstructive pulmonary disease 59425457 J44.9 Benign ess ential hypertension 0149636 I10 Anxiety 44841202 F41.9 Osteoporosis 35218625 M8 1.[id number] [facility] Internal Med [address] [facility] [place] [address] 11/22/2023 11:24:37 02/27/2024 18:27:14 Benign essential hypertension 4898429 I10 Chronic ob structive pulmonary disease 11501185 J44.9 Anxiety 11236904 F41.9 Osteoporosis 00349934 M8 1.[id number] [facility] Internal Med [address] [facility] [place] [address] 12/26/2023 12:12:28 12/26/2023 12:46:57 Benign essential hypertension 3742288 I10 much better [id number] Nolan Gonzalez MD [facility] Internal Med [address] [facility] [place] [address] 12/27/2023 13:51:05 02/29/2024 18:01:39 Benign essential hypertension 2524495 I10 Chronic ob structive pulmonary disease 26428704 J44.9 Anxiety 27280346 F41.9 [id number] [facility] Internal Med [address] [facility] [place] [address] 01/25/2024 15:07:20 03/06/2024 13:09:37 Benign essential hypertension 5103044 I10 Chronic ob structive pulmonary disease 97391863 J44.9 Anxiety 52359174 F41.9 Osteoporosis 27752876 M8 1.[id number] [facility] Internal Med [facility] [address] [facility] [place] [address] 04/12/2024 12:22:32 04/12/2024 13:51:19 Benign essential hypertension 0433497 I10 better with addition of amlodipine Osteoporosis 91356576 M8 1.0 on meds, Anxiety 22757490 F41.9 under control Depressive disorder 3548 9007 F32.9 stable with meds Hypothyroidism 76912147 E03.9 stable with meds Hyperlipidemia 90627678 E78.5 under control Osteoarthritis 654319360 M19.90 under control Restless l egs syndrome 15719948 G25.81 better with meds Sleep apnea 48259212 G47 .30 On CPAP Chronic ob structive pulmonary disease 84247975 J44.9 stable Vitamin D deficiency 347 46719 E55.9 treated, now on OTC Insomnia 311990392 G47.0 0 better with meds Hypertriglyceridemia 302 145576 E78.1 advised to lose weight watch and diet Adult heal th examination 881594217 Z00.00 Colonoscop y 04/03 at [facility] - report requested and no records was foundDexa- 08/13Mammo- 09/07/2023 LDCT-02/06 21, pulm nodule , no nodule on CT 02/08Pneumo vax 2007 and 2013Prevna r 09/2018 , 02/2024[place]- 02[place]20[place] VID- 08/20/20, 09/10/20, 04/05/21, 11/25/21, 02/2024 [id number] Nolan Gonzalez MD [facility] Internal Med [address] [place] [address] 12/06/2024 11:01:55 12/06/2024 12:31:35 Benign essential hypertension 4030956 I10 under control Osteoporosis 75758122 M8 1.0 on meds, Anxiety 30983291 F41.9 under control Depressive disorder 3548 9007 F32.9 stable with meds Hypothyroidism 32192244 E03.9 stable with meds Hyperlipidemia 20562184 E78.5 under control Osteoarthritis 018222013 M19.90 under control Restless l egs syndrome 18887810 G25.81 better with meds Sleep apnea 70001179 G47 .30 On CPAP Chronic ob structive pulmonary disease 52883601 J44.9 stable Vitamin D deficiency 347 45142 E55.9 treated, on OTC Insomnia 398347381 G47.0 0 better with meds Hypertriglyceridemia 302 147823 E78.1 advised to lose weight watch and diet Adult heal th examination 616478590 Z00.00 Colonoscop y 04/03 at [facility] - report requested and no records was foundDexa- 08/13Mammo- 09/07/2023 , already scheduledL DCT- 1, pulm nodule , no nodule on CT 02/08, DOES NOT QUALIFY ANY MOREPneumo vax 2007 and 2013Prevna r 09/2018 , 02/2024[place] U- 02/2024[place] VID- 08/20/20, 09/10/20, 04/05/21, 11/25/21, 02/2024 [id number] Nolan Gonzalez MD [facility] Internal Med [facility] [address] [facility] [place] [address] 03/07/2025 14:01:52 03/07/2025 15:14:18 Closed fracture of sternum 42305111 S22.20XS 48126719 Pneumonia 858198718 J18. 9 9702382846 treated with antibiotic s- feeling much betterapt upcoming with pulmonolog ist [id number] Nolan Gonzalez MD [facility] Internal Med [address] [place] [address] 04/24/2025 12:25:38 04/24/2025 14:00:30 Benign essential hypertension 8930054 I10 under control Osteoporosis 29389996 M8 1.0 on meds, Anxiety 88978585 F41.9 under control Depressive disorder 3548 9007 F32.9 stable with meds Hypothyroidism 19584205 E03.9 stable with meds Hyperlipidemia 61025271 E78.5 under control Osteoarthritis 304503288 M19.90 under control Restless l egs syndrome 12209634 G25.81 better with meds Sleep apnea 09928079 G47 .30 On CPAP Chronic ob structive pulmonary disease 72603256 J44.9 stable Vitamin D deficiency 347 92419 E55.9 treated, on OTC Insomnia 205060838 G47.0 0 better with meds Hypertriglyceridemia 302 354479 E78.1 advised to lose weight watch and diet Adult heal th examination 102549341 Z00.00 Colonoscop y 04/03 at [facility] - report requested and no records was foundDexa- 08/13Mammo- 09/07/2023 , already scheduledL DCT- 1, pulm nodule , no nodule on CT 02/08, DOES NOT QUALIFY ANY MOREPneumo vax 2007 and 2013Prevna r 13- 09/2018 , 02/2024[place]- 02/20[place] VID- 08/20/20, 09/10/20, 04/05/21, 11/25/21, 02/2024 Closed fra cture of sternum 79213860 S22.20XD [id number] Goals Section Goal Description Progress Status Start [...] care pathway as dictated by provider team Letitia active 2023 Lissette Larsen RN Information not available 11/16/2023 15:09:44 Respirat ory Health Patient is free from signs and symptoms of respiratory distress [facility] active 2023 Lissette Larsen RN Information not available 11/16/2023 15:09:44 Managing Anxiety Patient demonstrates increased interest in diversional activities [facility] active 2023 Lissette Larsen RN Information not available 11/16/2023 15:08:43 Pain Manageme nt Plan Reports satisfaction with current pain management plan (e.g., medication and non-medication pain relief interventions) [facility] Lissette Larsen RN Information not available 11/17/2023 16:02:33 Stress Manageme nt Reports effective management of stress Progressing active 2023 Lissette Larsen RN Information not available 12/27/2023 17:34:09 Quality of Life Reports satisfaction with quality of life Progressing active 2023 Lissette Larsen RN Information not available 12/27/2023 17:34:12 Recreati onal Activiti es Participates in recreational activities [facility] Lissette Larsen RN Information not available 11/22/2023 16:11:35 Exercise Regularl y Follows a regular exercise regimen or instructed exercise plan as per care team recommendation (s) [facility] Lissette Larsen RN Information not available 11/22/2023 16:11:35 Activiti es of Daily Living Performs activities of daily living independently or with minimal assistance [facility]23 Lissette Larsen RN Information not [...] appointment(s) as per care team recommendation (s) [facility] Lissette Larsen RN Information not available 11/22/2023 16:11:35 Adequate Housing Conditio ns Maintains adequate housing with satisfactory living conditions [facility] Lissette Larsen RN Information not available 11/22/2023 16:11:35 Effectiv e Coping Manages life events with effective coping methods Progressing active 2023 Lissette Larsen RN Information not available 12/27/2023 17:34:22 Family and Social Support Reports family and/or social support needs are met [facility] 2023 Lissette Larsen RN Information not available 11/22/2023 16:11:35 Food Security Reports ability to access and obtain foods to meet nutritional needs [facility] 2023 Lissette Larsen RN Information not available 11/22/2023 16:11:36 Diet Adherenc e Follows prescribed or recommended diet [facility] active 2023 Lissette Larsen RN Information not available 11/22/2023 16:11:36 Knowledg e of Disease or Conditio n Demonstrates understanding of disease(s) or condition(s) [facility] 2023 Lissette Larsen RN Information not available 11/22/2023 16:11:36 Smoking Cessatio n Quits smoking [facility] active 2023 Lissette Larsen RN Information not available 11/22/2023 16:11:36 Symptom Manageme nt Demonstrates ability to manage and/or control symptoms [facility] active 2023 Lissette Larsen RN Information not available 11/22/2023 16:11:36 Financia l Stabilit y Reports financial status and/or income meets needs [facility] Lissette Larsen RN Information not available 11/22/2023 16:11:36 Chronic Conditio n Action Plan Follows action plan for any worsening of chronic condition(s) as per care team recommendation (s) [facility] 2023 Lissette Larsen RN Information not available 12/27/2023 15:53:54 Lipid Levels Maintains normal lipid levels as defined by care team Letitia active 2023 Lissette Larsen RN Information not available 11/22/2023 16:11:37 Blood Pressure Maintains blood pressure goal as defined by care team Progressing active 2023 Lissette Larsen RN Information not available 12/27/2023 17:35:10 Weight Cherie abdul Exhibits stable weight with normal fluctuation [facility] 2023 Lissette Larsen RN Information not available 11/22/2023 16:11:37 Mobility Maintains or improves baseline mobility and/or moves independently [facility] 2023 Lissette Larsen RN Information [...] consumption as per care team recommendation (s) [facility] active 2023 Lissette Larsen RN Information not available 11/22/2023 16:11:38 Home/Env ironment Safety Reports having a safe environment that promotes independence and prevents injury [facility] active 2023 Lissette Larsen RN Information not available 11/22/2023 16:11:38 Strength and Conditio baljeet Achieves improved strength and conditioning as defined by care team Letitia active 2023 Lissette Larsen RN Information not available 11/22/2023 16:11:38 Fall Safety Reports no recent falls and/or fall injuries [facility] 2023 Lissette Larsen RN Information not available 11/22/2023 16:11:38 Assistiv e/Adapti ve Devices Uses assistive/adap tive devices properly and safely as per care team recommendation (s) [facility] active 2023 Lisestte Larsen RN Information not available 11/22/2023 16:11:38 Effectiv e Pain Manageme nt Reports or exhibits adequate pain relief as determined by appropriate pain scale [facility] active 2023 iLssette Larsen RN Information not available 11/22/2023 16:11:38 [...] Member ID Melchor Member ID Guarantor Name 04/21/2025 1 [facility] (MEDICARE REPLACEMENT/ ADVANTAGE - PPO) [id number] Diamante Castro [id number] Diamante Castro 04/21/2025 2 [place]MENT [place] Diamante Caner [id number] Diamante Solano Standnereyda Notes Date Note Type Note Provider Name and Address Organization Details Recorded Time 01/25/2024 text/html ROS as noted in the HPI Pt doing well, though she has HAM from the Cataracts surgery. She is getting her new glasses on ENEIDA Perdue [place] [employer] [facility] 03/06/2024 13:06:01 04/12/2024 text/html Pt is here [...] stress test 05/2019 Nolan Gonzalez MD [address], [place], [address], [place] [facility] [employer] 04/12/2024 13:11:41 12/06/2024 text/html Pt is here [...] stress test 05/2019 Nolan Gonzalez MD [address], [place], [address], [place] [facility] [employer] 12/06/2024 11:31:36 03/07/2025 text/html ROS as noted in the HPI Patient is 69y/o female who is here for ER Follow up to [facility] on 03/05 for lower lobe pneumonia and sternum fracture. Patient Chest CT revealed lower bilateral pneumonia. She currently wears oxygen daily and has history of COPD. During visit, she was found to be hypercapnic on ABG and given bronchodilators, breathing treatments, IV antibiotics Patient was sent home with amoxicillin and pain medication for sternum fracture and to follow up with PCP. Today in office, she reports that she is feeling much better other than her sternum pain. She reports that she does not feel shortness of breath, fever, chest pain, or N/V/D, Selene Darby, [employer] [address], [place], [address], [place] [facility] [employer] 03/08/2025 10:07:25 04/24/2025 text/html Pt is here today for her routine follow up, She is compliant to all her medsPT IS FASTING ( [facility] ) C/o sternum pain, she did fracture it back in Feb from a fall , still gets pain the chestshe was also treated for pneumonia as well Has hearing aids Had Cataract surgery on [...] LDCT any moreAnxiety and depression- mood is better, anxietyMeds- Citalopram 40 mg daily, Bupropion 100 mg BID ,Sleep apnea- on cpap, compliant, Obesity- advised to lose more , Lost 6 lbsHypothyroidism- On meds,Meds- Levothyroxine 112 mcg dailyOveractive bladder- better with [...] otcNegative stress test 05/2019 Nolan Gonzalez MD [address] [place] [address], [place], [address], [place] [facility] 04/24/2025 12:58:22 OBGyn Episode No OBEpisode recorded.
--- OUTSIDE RECORDS SUMMARY | 2025-05-10 14:54 | XMS_ITS | Continuity of Care Document ---
Author Organization [place] - [facility], [facility] Internal Med [address] Address [address] [place] [address] Care Team Providers Care Boat Deckhand Name Role Phone NOLAN SEGURA Internal Medicine [phone] ADRIAN ALBRIGHT Edge Grinder NISA LUNA Education Program Associate LISSETTE LARSEN Human Resources Associate Assessment No assessment recorded. Plan of Treatment Reminders Order Date Submit Date Provider Last Modified By Organization Details Last Modified Time Details Appointments Any 15 2025 11:30A M Nolan Segura MD Not available Not available Not available Lab None recorded. Referral None recorded. Procedures None recorded. Surgeries None recorded. Imaging None recorded. Medication Orders lidocaine 5 % topical patch 2024 025 [id number], [address] [facility], [place], [place], [id number], 03/07/2025 14:30:44 Patient TargetsNo targets recorded. Patient Instructions Encounter Date Encounter Id Patient Instructions Last Modified By Organization Details Last Modified Time 03/07/2025 [id number] Please finish course of antibiotics and stay hydrated. Please call office with any questions or concerns. [email or web address] Not available 03/08/2025 10:07:07 Reason for Referral None Reported. Problems Name Problem SNOMED Code Status Onset Date Resolution Date Notes Provider Name and Address Organization Details Recorded Time Chronic obstructiv e pulmonary disease 79465599 Active Not Available [facility] 04:47:56 History of transient ischemic attack 604635012 Active Not Available [facility] 3 04:47:56 Acute exacerbati on of chronic obstructiv e pulmonary disease 714240911 Completed Not Available [facility] 3 04:47:56 Genuine stress incontinen ce 64860708 Completed Not Available [facility] 3 04:47:56 Eruption 060332536 Completed Not Available [facility] 3 04:47:57 Restless legs syndrome 63478644 Active Not Available [facility] 3 04:47:57 Vitamin D deficiency 58878463 Active Not Available [facility] 3 04:47:57 Hypothyroi dism 35048906 Active Not Available [facility] 3 04:47:57 Obesity 645168737 Active Not Available [facility] 3 04:47:58 Anxiety 92510072 Active Not Available [facility] 3 04:47:58 Hyperlipid emia 14684062 Active Not Available [facility] 3 04:47:58 Solitary nodule of lung 754763796 Active 2018 Not Available [facility] 3 04:47:58 Osteoporos is 42715033 Active 2018 Not Available [facility] 3 04:47:58 Depressive disorder 19481064 Active 2019 Not Available [facility] 3 04:47:57 Osteoarthr itis 259265355 Active 2019 Not Available [facility] 3 04:47:57 Sleep apnea 74046864 Active 2019 Not Available [facility] 3 04:47:58 Insomnia 422764687 Active 2021 Not Available [facility] 3 04:47:56 Screening mammograph y Completed 202101/08/2022 Not Available [facility] 3 04:47:56 Adult health examinatio n Active 2021 Nolan Segura MD [address] [facility], [facility] [address], [place], [address] , [facility] [employer] [facility] 3 13:12:05 Screening for disorder Completed 202101/08/2022 Not Available [facility] 3 04:47:57 Administra tion of influenza vaccine Completed 202101/08/2022 Not Available [facility] 3 04:47:58 Finding of body mass index 035341827 Completed 202106/16/2022 Not Available [facility] 3 04:47:57 Urinary symptoms 307931144 Completed 202106/16/2022 Not Available [facility] 3 04:47:57 Acute urinary tract infection 244281157 Completed 202106/16/2022 Not Available [facility] 3 04:47:58 Hypertrigl yceridemia 645334158 Active 2022 Becki tracey RMRuss null, [facility] 3 07:58:49 Hearing loss 05227274 Active 2022 Nolan Segura MD [address], [address], [place], [address] , [facility] 3 13:12:10 Essential hypertensi on 38831914 Active 2023 Becki tracey RMRuss null, [place] [facility] 5 07:56:29 Benign essential hypertensi on 4374605 Active 2024 Nolan Segura MD [address], [address], [place], [address] , [facility] 5 11:18:45 Anemia 479438368 Active 2024 Brandi Troy MA null, [place] [facility] 5 15:11:14 Closed fracture of sternum 16295868 Active 2024 Nolan Segura MD [address], [address], [place], [address] , [facility] 5 12:54:45 Pneumonia 204614606 Active 2024 JD Stewart-Mynor [address], [address], [place], [address] , [facility] [employer] [facility] 5 16:21:29 Problem Notes None recorded. Procedures Surgical History Date Name Laterality Status Provider Name and Address Organization Details Recorded Time 4 Chronic care management services completed Lissette Larsen RN [place] [facility] [employer] [facility] 01/25/2024 15:42:31 4 Chronic care management services completed Lissette Larsen RN [facility] [employer] [facility] 12/27/2023 13:59:32 4 Chronic care management services completed Lissette Larsen RN [facility] [employer] [facility] 11/22/2023 12:22:25 4 Chronic care management services completed Lissette Larsen RN [facility] [employer] [facility] 11/17/2023 12:04:02 4 Medicare Wellness CPT Code, subsequent completed Tracey Khan RN [facility] [employer] [facility] 11/16/2023 12:47:26 4 Advanced Care Planning completed Tracey Khan RN [facility] [employer] [facility] 11/16/2023 12:51:06 4 Chronic care management services completed ROSALINE Godoy [address], [address], [place], [address], [facility] [employer] [facility] 11/10/2023 14:33:57 4 Cataract surg w/iol 1 stage completed Lissette Larsen RN [facility] [employer] [facility] 11/22/2023 11:58:56 1 Most Recent Bone Density completed Not Available [facility] 08/18/2022 04:41:46 Tubal Ligation completed Not Available [facility] 08/18/2022 04:41:48 Bladder completed Not Available [facility] 06/2022 04:41:48 Cataract surg w/iol 1 stage completed Lissette Larsen RN [facility] [employer] 11/22/2023 11:59:22 Imaging Results None recorded. Procedure Notes None recorded. Medical Equipment None Reported. Allergies Allergen ID Allergen Name Allergen Category Reaction Reaction Severity Criticality Documentation Date Start Date Code Code System Note Provider Name and Address Organization Details Recorded Time 7077 albuterol medicatio n Not available Not available Not available 08/18/2022 435 RxNorm PALPI MICAH NS Not Available [facility] 3 04:55:32 Medications Name Sig Start Date [...] Available Not Available No t Available Fluvirin 3054-1472 (PF) 45 mcg (15 mcg x3)/0.5 mL intramusc ular syringe INJECT 0.5 ML INTRAMUS CULARLY DIRECTED . active Not Available Not Available No t Available Pazeo 0.7 % eye drops INSTILL 1 GTT IN OU ONCE D 02/04 completed Not Available Not Available Not Available Fluvirin 5183-9647 45 mcg (15 mcg x 3)/0.5 mL [...] Not Available No t Available Fluzone High-Dose 2019-20 (PF) 180 mcg/0.5 mL intramusc ular syringe ADMINIST ER 0.5ML IN THE MUSCLE DIRECTED 06/22 completed Not Available Not Available Not Available Sutab 1.479-0.1 88-0.225 gram tablet FOLLOW PACKAGE DIRECTIO NS active Not Available Not Available No t Available Vitals Date Recorded Body height Body temperature Heart rate Oxygen saturation Inhaled oxygen flow rate Provider Name and Address Organization Details Last Updated DateTime 5 162.56 cm 97.8 [degF] 110 /min 90 % 4 L/min Soni Melendez [employer] 5 14:18:16 Social History Question Answer Notes LastModified by Organization Details LastModified Time Tobacco Smoking Status Former Smoker 2004 Lavern ramirez [facility] 06/09/2023 12:16:07 Do You Have An Advance Directive? No Info Given [email or web address] Information not available 11/16/2023 Are You Blind Or Do You Have Difficulty Seeing? No Information not available 06/09/2023 Is Blood Transfusion Acceptable In An Emergency? Yes Information not available 11/22/2023 What Is Your Level Of Caffeine Consumption? Moderate [id number] [id number] Information not available 08/18/2022 How Much Tobacco Do You Chew? None MIGRATION.0301 [id number] Information not available 08/18/2022 In The 14 [...] Serious Difficulty Hearing? Yes Has Hearing Aids [email or web address] Information not available 11/16/2023 What Type Of Diet Are You Following? CARDIAC [id number] Information not available 08/18/2022 Which Illicit Or Recreational Drugs Have You Used? None Information not available 06/09/2023 Have There Been Any Changes To Your Family Or Social Situation? No [email or web address] Information not available 11/16/2023 What Is The Fluoride Status Of Your Home? Unknown Information not available 06/09/2023 When Did You Quit Smoking? 11-15yearssincelas tcigarette Information not available 06/09/2023 Are There Any Guns Present In Your Home? No Information not available 06/09/2023 Do You Use Insect Repellent Routinely? No Information not available 06/09/2023 Where Do You Live? SingleLevelHouse [email or web address] Information not available 11/16/2023 Advance Directive- Providers Has Reviewed Directive And Consents To Follow Them (insert Provider Name With Any Objectives In Notes Field) No Pt Will Get This Done At December Appt Information not available 11/22/2023 Are You Able To Care For Yourself? No [email or web address] Information not available 11/16/2023 Are You Deaf Or Do You Have Serious Difficulty Hearing? Yes [email or web address] Information not available 11/16/2023 General Stress Level? Moderate Information not available 11/22/2023 Live Alone Of With Others? With Others [email or web address] Information not available 11/16/2023 Do You Have A Medical Power Of Design Drafter Chief? No [email or web address] Information not available 11/16/2023 What Was The Date Of Your Most Recent Tobacco Screening? 11/16/2023 [email or web address] Information not available 11/16/2023 Do You Have Any Pets? Yes [email or web address] Information not available 11/16/2023 What Is Your Relationship Status? MIGRATION.0301 [id number] Information not available 08/18/2022 Do You Use [...] Much Tobacco Do You Smoke? No MIGRATION.0301 [id number] Information not available 08/18/2022 Do You Use [...] your level of alcohol consumption? None MIGRATION.0301 [id number] Information not available 08/18/2022 Do you have [...] 06/09/2023 What is your exercise level? None [email or web address] Information not available 11/16/2023 Mental Status Question Answer Note LastModified by Organizat ion Details LastModified Time Do you feel stressed (tense, restless, nervous, or anxious, or unable to sleep at night)? [id number] Information not available 06/09/2023 Do you have difficulty concentrating, remembering or making decisions? No Information no t available 06/09/2023 Family History Relationship Description Onset Age of this Age Resolved Age Notes LastModified by Organization Details LastModified Time Mother Essential hypertension MIGRATION.278 [id number] Not available 08/18/2022 04:41:52 Brother Essential hypertension MIGRATION.495 [id number] Not available 08/18/2022 04:41:52 Father Essential hypertension MIGRATION.636 [id number] Not available 08/18/2022 04:41:52 Son Malignant neoplastic disease MIGRATION.513 [id number] Not available 08/18/2022 04:41:52 Daughter Malignant neoplastic disease MIGRATION.473 [id number] Not available 08/18/2022 04:41:52 Medical History Condition Response BLADDER PROBLEMS Y CHICKENPOX Y LUNG DISEASE/DISORDER Y HEARTBURN / REFLUX Y COPD Y HIGH CHOLESTEROL / HYPERLIPIDEMIA Y MUMPS Y HYPOTHYROIDISM Y CATARACTS Y SHINGLES N STROKE/TIA Y HYPERTENSION Y ANXIETY DISORDER Y OSTEOPOROSIS Y Do you have Advance directive? N Gynecological History Statement/Question Response Date of Last Mammogram 04/01/2021 Date of Last Colonoscopy Most Recent Bone Density 05/22/2021 Obstetrics History GPAL:G 0 P 0 0 0 0 Immunizations Vaccine Type Date Status Note Provider Michael lopez and Address Organization Details Recorded Time Influenza, adjuvanted, quadrivalent, PF 2 completed Lissette Larsen RN null, [place] [facility] 01/25/2024 15:10:35 COVID-19, mRNA, LNP-S, PF, 30 mcg/0.3 mL dose 1 completed Lissette Larsen RN null, [facility] 01/25/2024 15:10:35 COVID-19, mRNA, LNP-S, PF, 30 mcg/0.3 mL dose, chelo-sucrose 2 completed Lissette Larsen RN null, [facility] 01/25/2024 15:10:35 COVID-19, mRNA, LNP-S, bivalent, PF, 30 mcg/0.3 mL dose 2 completed Lissette Larsen RN null, [facility] 01/25/2024 15:10:35 Influenza, high-dose, trivalent, PF 9 completed Lissette Larsen RN null, [facility] 01/25/2024 15:10:35 Influenza, split virus, trivalent, preservative 2 completed Lissette Larsen RN null, [facility] 01/25/2024 15:10:35 Influenza, split virus, trivalent, preservative 3 completed Lissette Larsen RN null, [facility] 01/25/2024 15:10:35 Influenza, split virus, trivalent, PF 5 completed Lissette Larsen RN null, [facility] 01/25/2024 15:10:35 Influenza, split virus, trivalent, PF 4 completed Lissette Larsen RN null, [facility] 01/25/2024 15:10:35 Influenza, split virus, quadrivalent, PF 8 completed Lissette Larsen RN null, [facility] 01/25/2024 15:10:35 COVID-19, mRNA, LNP-S, PF, chelo-sucrose, 30 mcg/0.3 mL 4 completed Not Available [facility] 04/24/2025 12:26:47 Influenza, high-dose, trivalent, PF 4 completed Not Available [facility] 04/24/2025 12:26:47 COVID-19, mRNA, LNP-S, PF, chelo-sucrose, 30 mcg/0.3 mL 4 completed Not Available [facility] 04/24/2025 12:26:47 Pneumococcal conjugate PCV20, polysaccharide [id number] conjugate, adjuvant, PF 4 completed Not Available [facility] 04/24/2025 12:26:47 COVID-19, mRNA, LNP-S, PF, 30 mcg/0.3 mL dose 1 completed Lissette Larsen RN null, [facility] 01/25/2024 15:10:35 COVID-19, mRNA, LNP-S, PF, 30 mcg/0.3 mL dose 1 completed Lissette Larsen RN null, [facility] 01/25/2024 15:10:35 Influenza, high-dose, trivalent, PF 5 completed Lissette Larsen RN null, [facility] 01/25/2024 15:10:35 Influenza, high-dose, trivalent, PF 3 completed Lissette Larsen RN null, [facility] 01/25/2024 15:10:35 Influenza, high-dose, trivalent, PF 1 completed Lissette Larsen RN null, [facility] 01/25/2024 15:10:35 COVID-19, mRNA, LNP-S, PF, 100 mcg/0.5mL dose or 50 mcg/0.25mL dose 2 completed Lissette Larsen RN null, [facility] 01/25/2024 15:10:35 COVID-19, mRNA, LNP-S, PF, 100 mcg/0.5mL dose or 50 mcg/0.25mL dose 1 completed Lissette Larsen RN null, [facility] [employer] [facility] 01/25/2024 15:10:35 Influenza, split virus, quadrivalent, preservative 9 completed Lissette Larsen RN null, [facility] 01/25/2024 15:10:35 Influenza, high-dose, trivalent, PF 0 completed Lissette Larsen RN null, [facility] 01/25/2024 15:10:35 pneumococcal polysaccharide PPV23 8 completed Not Available [facility] 08/18/2022 04:55:22 Influenza, high-dose, quadrivalent, PF 1 completed Not Available [facility] 08/18/2022 04:55:22 Influenza, split virus, quadrivalent, preservative 6 completed Not Available [facility] 08/18/2022 04:55:22 Pneumococcal conjugate PCV 13 9 completed Not Available [facility] 08/18/2022 04:55:22 pneumococcal polysaccharide PPV23 4 completed Not Available [facility] 08/18/2022 04:55:22 Influenza, high-dose, quadrivalent, PF 3 completed Nolan Segura MD [address] [place] [address], [address], [facility] 06/09/2023 13:09:19 Past Encounters Encounter ID Performer Location Encounter Start Date Encounter Closed Date Diagnosis/Indication Diagnosis SNOMED-CT Code Diagnosis ICD10 Code Diagnosis IMO Codes Diagnosis Note [id number] Nolan Segura MD [facility] Internal Med [address] [place] [address] 03/07/2025 14:01:52 03/07/2025 15:14:18 Closed fracture of sternum 06789553 S22.20XS 04711089 Pneumonia 314913792 J18. 9 1587678530 treated with antibiotic s- feeling much betterapt upcoming with pulmonolog ist Goals Section Goal Description Progress Status Start [...] Manageme nt Reports effective management of stress [facility] active 2023 Lissette Larsen RN Information not available 11/16/2023 15:05:07 Exercise Regularl y Follows a regular exercise regimen or instructed exercise plan as per care team recommendation (s) [facility] active 2023 Lissette Larsen RN Information not available 11/17/2023 16:01:49 Medicati on Regimen Follows medication regimen as per care team recommendation (s) Progressing active 2023 Lissette Larsen RN Information not available 12/27/2023 17:34:02 COPD Pt follows care pathway as dictated by provider team [facility] active 2023 Lissette Larsne RN Information not available 11/16/2023 15:09:44 Respirat or Health Patient is free from signs and symptoms of [facility] distress [facility] Lissette Larsen RN Information not available 11/16/2023 15:09:44 Managing Anxiety Patient demonstrates increased interest in diversional activities [facility] Lissette Larsen RN Information not available 11/16/2023 15:08:43 Pain Manageme nt Plan Reports satisfaction with current pain management plan (e.g., medication and non-medication pain relief interventions) [facility] Lissette Larsen RN Information not available 11/17/2023 16:02:33 Stress Manageme nt Reports effective management of stress Progressing active 2023 Lissette Larsen RN Information not available 12/27/2023 17:34:09 Quality of Life Reports satisfaction with quality of life Progressing active 2023 Lissette Larsen RN Information not available 12/27/2023 17:34:12 Recreati onal Activiti es Participates in recreational activities [employer] active 2023 Lissette aLrsen RN Information not available 11/22/2023 16:11:35 Exercise Regularl y Follows a regular exercise regimen or instructed exercise plan as per care team recommendation (s) [facility] Lissette Larsen RN Information not [...] appointment(s) as per care team recommendation (s) [facility] active 2023 Lissette Larsen RN Information not available 11/22/2023 16:11:35 Adequate Housing Conditio ns Maintains adequate housing with satisfactory living conditions [facility] Lissette Larsen RN Information not available 11/22/2023 16:11:35 Effectiv e Coping Manages life events with effective coping methods Progressing active 2023 Lissette Larsen RN Information not available 12/27/2023 17:34:22 Family and Social Support Reports family and/or social support needs are met [facility] Lissette Larsen RN Information not available 11/22/2023 16:11:35 Food Security Reports ability to access and obtain foods to meet nutritional needs [facility] Lissette Larsen RN Information not available 11/22/2023 16:11:36 Diet Adherenc e Follows prescribed or recommended [facility] Lissette Larsen RN Information not available 11/22/2023 16:11:36 Knowledg e of Disease or Conditio n Demonstrates understanding of disease(s) or condition(s) [facility] Lissette Larsen RN Information not available 11/22/2023 16:11:36 Smoking Cessatio n Quits smoking [facility] Lissette Larsen RN Information not available 11/22/2023 16:11:36 Symptom Manageme nt Demonstrates ability to manage and/or control symptoms [facility] 2023 Lissette Larsen RN Information not available 11/22/2023 16:11:36 Financia l Stabilit y Reports financial status and/or income meets needs [facility] Lissette Larsen RN Information not available 11/22/2023 16:11:36 Chronic Conditio n Action Plan Follows action plan for any worsening of chronic condition(s) as per care team recommendation (s) [facility] active 2023 Lissette Larsen RN Information not available 12/27/2023 15:53:54 Lipid Levels Maintains normal lipid levels as defined by care team [facility] active 2023 Lissette Larsen RN Information not available 11/22/2023 16:11:37 Blood Pressure Maintains blood pressure goal as defined by care team Progressing active 2023 Lissette Larsen RN Information not available 12/27/2023 17:35:10 Weight Mainaiden borjae Exhibits stable weight with normal fluctuation [facility] Lissette Larsen RN Information not available 11/22/2023 16:11:37 Mobility Maintains or improves baseline mobility and/or moves independently [facility] Lissette Larsen RN Information [...] consumption as per care team recommendation (s) [facility] active 2023 Lissette Larsen RN Information not available 11/22/2023 16:11:38 Home/Env ironment Safety Reports having a safe environment that promotes independence and prevents injury [facility] active 2023 Lissette Larsen RN Information not available 11/22/2023 16:11:38 Strength and Conditio baljeet Achieves improved strength and conditioning as defined by care team [facility] active 2023 Lissette Larsen RN Information not available 11/22/2023 16:11:38 Fall Safety Reports no recent falls and/or fall [facility] Lissette Larsen RN Information not available 11/22/2023 16:11:38 Assistiv e/Adapti ve Devices Uses assistive/adap tive devices properly and safely as per care team recommendation (s) [facility] RN Information not available 11/22/2023 16:11:38 Effectiv e Pain Manageme nt Reports or exhibits adequate pain relief as determined by appropriate pain scale [facility] Lissette Larsen RN Information not available 11/22/2023 16:11:38 Balance Maintains or improves baseline balance [facility] Lissette Larsen RN Information not available 11/22/2023 16:11:38 Substanc e Cessatio n Reduces or avoids substance use [facility] Lissette Larsen RN Information [...] Larsen RN Not Available 12/27/2023 1 5:53:54 Payers Encounter Date Sequence Insurance Name Policy Number Policy Melchor Covered Member ID Melchor Member ID Guarantor Name 03/07/2025 1 [facility] (MEDICARE REPLACEMENT/ ADVANTAGE - PPO) [id number] Diamante Castro [id number] Diamante Castro 03/07/2025 2 [place] [facility] Diamante Castro [id number] Diamante Castro Notes Date Note Type Note Provider Name and Address Organization Details Recorded Time 03/07/2025 text/html ROS as noted in the HPI Patient is 69y/o female who is here for ER Follow up to [facility] on 03/05 for lower lobe pneumonia [...] fever, chest pain, or N/V/D, Selene Darby, J[employer]IOR [employer] [address] [facility] [address], [place], [address], [place] [facility] [employer] 03/08/2025 10:07:25 OBGyn Episode No OBEpisode recorded.
--- OUTSIDE RECORDS SUMMARY | 2025-05-10 14:54 | XMS_ITS | Continuity of Care Document ---
Author Organization [place] - [facility], [facility] [address] Address [address] [place] [address] Care Team Providers Care Thermostat Machine Tender Name Role Phone NOLAN SEGURA Internal Medicine ADRIAN ALBRIGHT Fire Extinguisher Repairer Inspector NISA LUNA Card Tender LISSETTE LARSEN Binder Folder Operator Assessment No assessment recorded. Plan of Treatment Reminders Order Date Submit Date Provider Last Modified By Organization Details Last Modified Time Details Appointments Any 15 2025 11:30A M Nolan Segura MD Not available Not available Not available Lab None recorded. Referral None recorded. Procedures None recorded. Surgeries None recorded. Imaging CT, chest, w/o contrast 2024 025 [facility], [address], [address], [place], [address], 04/24/2025 14:37:14 Medication Orders None recorded. Patient TargetsNo targets recorded. Patient InstructionsNo instructions recorded. Reason for Referral None Reported. Problems Name Problem SNOMED Code Status Onset Date Resolution Date Notes Provider Name and Address Organization Details Recorded Time Chronic obstructiv e pulmonary disease 61594153 Active Not Available [facility] 3 04:47:56 History of transient ischemic attack 778888425 Active Not Available [facility] 3 04:47:56 Acute exacerbati on of chronic obstructiv e pulmonary disease 994772520 Completed Not Available [facility] 3 04:47:56 Genuine stress incontinen ce 85308820 Completed Not Available [facility] 3 04:47:56 Eruption 979232431 Completed Not Available [facility] 3 04:47:57 Restless legs syndrome 35655387 Active Not Available [facility] 3 04:47:57 Vitamin D deficiency 33356202 Active Not Available [facility] 3 04:47:57 Hypothyroi dism 60698682 Active Not Available [facility] 3 04:47:57 Obesity 019141242 Active Not Available [facility] 3 04:47:58 Anxiety 04133175 Active Not Available [facility] 3 04:47:58 Hyperlipid emia 76844135 Active Not Available [facility] 3 04:47:58 Solitary nodule of lung 042246485 Active 2018 Not Available [facility] 3 04:47:58 Osteoporos is 60994304 Active 2018 Not Available [facility] 3 04:47:58 Depressive disorder 21326873 Active 2019 Not Available [facility] 3 04:47:57 Osteoarthr itis 419944156 Active 2019 Not Available [facility] 3 04:47:57 Sleep apnea 61039165 Active 2019 Not Available [facility] 3 04:47:58 Insomnia 183856267 Active 2021 Not Available [facility] 3 04:47:56 Screening mammograph y Completed 202101/08/2022 Not Available [facility] 3 04:47:56 Adult health examinatio n Active 2021 Nolan Segura MD [address] [place] [address], [address] , [facility] 3 13:12:05 Screening for disorder Completed 202101/08/2022 Not Available [facility] 3 04:47:57 Administra tion of influenza vaccine Completed 202101/08/2022 Not Available [facility] 3 04:47:58 Finding of body mass index 900078685 Completed 202106/16/2022 Not Available [facility] 3 04:47:57 Urinary symptoms 769222032 Completed 202106/16/2022 Not Available [facility] 3 04:47:57 Acute urinary tract infection 253048013 Completed 202106/16/2022 Not Available [facility] 3 04:47:58 Hypertrigl yceridemia 350113030 Active 2022 Becki tracey RMA null, [place] [facility] 3 07:58:49 Hearing loss 34031121 Active 2022 Nolan Segura MD [address], [address], [place], [address] , [facility] 3 13:12:10 Essential hypertensi on 32100069 Active 2023 Becki tracey RMA null, [place] [facility] 5 07:56:29 Benign essential hypertensi on 5087311 Active 2024 Nolan Segura MD [address], [address], [place], [address] , [facility] - [facility] 5 11:18:45 Anemia 611473430 Active 2024 Brandi Troy MA null, [place] [facility] 5 15:11:14 Closed fracture of sternum 96137793 Active 2024 Nolan Segura MD [address], [address], [place], [address] , [facility] 5 12:54:45 Pneumonia 051952280 Active 2024 ROSALINE Stewart [address], [address], [place], [address] , [facility] - [facility] 5 16:21:29 Problem Notes None recorded. Procedures Surgical History Date Name Laterality Status Provider Name and Address Organization Details Recorded Time 4 Chronic care management services completed [facility] [place] [facility] 01/25/2024 15:42:31 4 Chronic care management services completed JB Louie Yogesh [place] [facility] 12/27/2023 13:59:32 4 Chronic care management services completed JB Louie [facility] 11/22/2023 12:22:25 4 Chronic care management services completed JB Louie Yogesh [place] [facility] 11/17/2023 12:04:02 4 Medicare Wellness CPT Code, subsequent completed Tracey hKan RN [facility] 11/16/2023 12:47:26 4 Advanced Care Planning completed Tracey Khan RN [facility] 11/16/2023 12:51:06 4 Chronic care management services completed JD Godoy-Mynor [address] [place] [address], [address], [facility] 11/10/2023 14:33:57 4 Cataract surg w/iol 1 stage completed JB Louie [facility] 11/22/2023 11:58:56 1 Most Recent Bone Density completed Not Available [facility] 08/18/2022 04:41:46 Tubal Ligation completed Not Available [facility] 08/18/2022 04:41:48 Bladder completed Not Available [facility] 06/2022 04:41:48 Cataract surg w/iol 1 stage completed Lissette Larsen RN [facility] 11/22/2023 11:59:22 Imaging Results None recorded. Procedure Notes None recorded. Medical Equipment None Reported. Allergies Allergen ID Allergen Name Allergen Category Reaction Reaction Severity Criticality Documentation Date Start Date Code Code System Note Provider Name and Address Organization Details Recorded Time 2573 albuterol medicatio n Not available Not available Not available 08/18/2022 435 RxNorm PALPI TATIO NS Not Available [facility] 3 04:55:32 Medications Name Sig Start Date [...] Available Not Available No t Available Fluvirin 9625-7696 (PF) 45 mcg (15 mcg x3)/0.5 mL intramusc ular syringe INJECT 0.5 ML INTRAMUS CULARLY DIRECTED . active Not Available Not Available No t Available Pazeo 0.7 % eye drops INSTILL 1 GTT IN OU ONCE D 02/04 completed Not Available Not Available Not Available Fluvirin 8903-9015 45 mcg (15 mcg x 3)/0.5 mL [...] Updated DateTime 5 162.56 cm 29.7 kg/m2 09736.4 8 g 97 [degF] 83 /min 93 % 144/76 mm[Hg] ANDERSON Hernandez [employer] 5 12:32:22 Social History Question Answer Notes LastModified by Organization Details LastModified Time Tobacco Smoking Status Former Smoker 2004 Lavern ramirez [employer] 06/09/2023 12:16:07 Do You Have An Advance Directive? No Info Given [email or web address] Information not available 11/16/2023 Are You Blind Or Do You Have Difficulty Seeing? No Information not available 06/09/2023 Is Blood Transfusion Acceptable In An Emergency? Yes Information not available 11/22/2023 What Is Your Level Of Caffeine Consumption? Moderate [id number] [id number] Information not available 08/18/2022 How Much Tobacco Do You Chew? None MIGRATION.0301 [id number] Information not available 08/18/2022 In The 14 [...] Serious Difficulty Hearing? Yes Has Hearing Aids [email or web address] Information not available 11/16/2023 What Type Of Diet Are You Following? CARDIAC MIGRATION.0301 [id number] Information not available 08/18/2022 Which Illicit Or Recreational Drugs Have You Used? None Information not available 06/09/2023 Have There Been Any Changes To Your Family Or Social Situation? No [email or web address] Information not available 11/16/2023 What Is The Fluoride Status Of Your Home? Unknown Information not available 06/09/2023 When Did You Quit Smoking? 11-15yearssincelas tcigarette Information not available 06/09/2023 Are There Any Guns Present In Your Home? No Information not available 06/09/2023 Do You Use Insect Repellent Routinely? No Information not available 06/09/2023 Where Do You Live? SingleLevelHouse [email or web address] Information not available 11/16/2023 Advance Directive- Providers Has Reviewed Directive And Consents To Follow Them (insert Provider Name With Any Objectives In Notes Field) No Pt Will Get This Done At December Appt Information not available 11/22/2023 Are You Able To Care For Yourself? No [email or web address] Information not available 11/16/2023 Are You Deaf Or Do You Have Serious Difficulty Hearing? Yes [email or web address] Information not available 11/16/2023 General Stress Level? Moderate Information not available 11/22/2023 Live Alone Of With Others? With Others [email or web address] Information not available 11/16/2023 Do You Have A Medical Power Of Corporate Physical Security Supervisor? No [email or web address] Information not available 11/16/2023 What Was The Date Of Your Most Recent Tobacco Screening? 11/16/2023 [email or web address] Information not available 11/16/2023 Do You Have Any Pets? Yes Information not available 11/16/2023 What Is Your Relationship Status? [id number].0301 [id number] Information not available 08/18/2022 Do You Use [...] How Much Tobacco Do You Smoke? No [id number].[id number] Information not available 08/18/2022 Do You Use [...] is your level of alcohol consumption? None MIGRATION.[id number] Information not available 08/18/2022 Do you have [...] 06/09/2023 What is your exercise level? None [email or web address] Information not available 11/16/2023 Mental Status Question Answer Note LastModified by Organizat ion Details LastModified Time Do you feel stressed (tense, restless, nervous, or anxious, or unable to sleep at night)? [id number] Information not available 06/09/2023 Do you have difficulty concentrating, remembering or making decisions? No Information no t available 06/09/2023 Family History Relationship Description Onset Age of this Age Resolved Age Notes LastModified by Organization Details LastModified Time Mother Essential hypertension MIGRATION.944 [id number] Not available 08/18/2022 04:41:52 Brother Essential hypertension MIGRATION.866 [id number] Not available 08/18/2022 04:41:52 Father Essential hypertension MIGRATION.409 [id number] Not available 08/18/2022 04:41:52 Son Malignant neoplastic disease MIGRATION.347 [id number] Not available 08/18/2022 04:41:52 Daughter Malignant neoplastic disease MIGRATION.504 [id number] Not available 08/18/2022 04:41:52 Medical History Condition Response BLADDER PROBLEMS Y CHICKENPOX Y LUNG DISEASE/DISORDER Y HEARTBURN / REFLUX Y COPD Y HYPERTENSION Y HIGH CHOLESTEROL / HYPERLIPIDEMIA Y ANXIETY DISORDER Y MUMPS Y HYPOTHYROIDISM Y CATARACTS Y OSTEOPOROSIS Y SHINGLES N STROKE/TIA Y Do you have Advance directive? N Gynecological History Statement/Question Response Date of Last Mammogram 04/01/2021 Date of Last Colonoscopy Most Recent Bone Density 05/22/2021 Obstetrics History GPAL:G 0 P 0 0 0 0 Immunizations Vaccine Type Date Status Note Provider Nam e and Address Organization Details Recorded Time Influenza, adjuvanted, quadrivalent, PF 2 completed JB Louie, ENEIDA Barros Yogesh [facility] [employer] 01/25/2024 15:10:35 COVID-19, mRNA, LNP-S, PF, 30 mcg/0.3 mL dose 1 completed JB Louie, [facility] 01/25/2024 15:10:35 COVID-19, mRNA, LNP-S, PF, 30 mcg/0.3 mL dose, chelo-sucrose 2 completed Lissette Larsen RN null, [facility] 01/25/2024 15:10:35 COVID-19, mRNA, LNP-S, bivalent, PF, 30 mcg/0.3 mL dose 2 completed Lissette Larsen RN null, [facility] 01/25/2024 15:10:35 Influenza, high-dose, trivalent, PF 9 completed JB Louie, [facility] 01/25/2024 15:10:35 Influenza, split virus, trivalent, preservative 2 completed Lissette Larsen RN null, [facility] 01/25/2024 15:10:35 Influenza, split virus, trivalent, preservative 3 completed Lissette Larsen RN null, [facility] 01/25/2024 15:10:35 Influenza, split virus, trivalent, PF 5 completed Lissette Larsen RN null, [facility] 01/25/2024 15:10:35 Influenza, split virus, trivalent, PF 4 completed Lissette Larsen RN null, [facility] 01/25/2024 15:10:35 Influenza, split virus, quadrivalent, PF 8 completed Lissette Larsen RN null, [facility] 01/25/2024 15:10:35 COVID-19, mRNA, LNP-S, PF, chelo-sucrose, 30 mcg/0.3 mL 4 completed Not Available [facility] 04/24/2025 12:26:47 Influenza, high-dose, trivalent, PF 4 completed Not Available [facility] 04/24/2025 12:26:47 COVID-19, mRNA, LNP-S, PF, chelo-sucrose, 30 mcg/0.3 mL 4 completed Not Available [facility] 04/24/2025 12:26:47 Pneumococcal conjugate PCV20, polysaccharide [id number] conjugate, adjuvant, PF 4 completed Not Available [facility] 04/24/2025 12:26:47 COVID-19, mRNA, LNP-S, PF, 30 mcg/0.3 mL dose 1 completed Lissette Larsen RN null, [facility] 01/25/2024 15:10:35 COVID-19, mRNA, LNP-S, PF, 30 mcg/0.3 mL dose 1 completed Lissette Larsen RN null, [facility] 01/25/2024 15:10:35 Influenza, high-dose, trivalent, PF 5 completed Lissette Larsen RN null, [facility] 01/25/2024 15:10:35 Influenza, high-dose, trivalent, PF 3 completed Lissette Larsen RN null, [facility] 01/25/2024 15:10:35 Influenza, high-dose, trivalent, PF 1 completed Lissette Larsen RN null, [facility] 01/25/2024 15:10:35 COVID-19, mRNA, LNP-S, PF, 100 mcg/0.5mL dose or 50 mcg/0.25mL dose 2 completed Lissette Larsen RN null, [facility] 01/25/2024 15:10:35 COVID-19, mRNA, LNP-S, PF, 100 mcg/0.5mL dose or 50 mcg/0.25mL dose 1 completed Lissette Larsen RN null, [facility] 01/25/2024 15:10:35 Influenza, split virus, quadrivalent, preservative 9 completed Lissette Larsen RN null, [facility] 01/25/2024 15:10:35 Influenza, high-dose, trivalent, PF 0 completed Lissette Larsen RN null, [facility] 01/25/2024 15:10:35 pneumococcal polysaccharide PPV23 8 completed Not Available [facility] 08/18/2022 04:55:22 Influenza, high-dose, quadrivalent, PF 1 completed Not Available [facility] 08/18/2022 04:55:22 Influenza, split virus, quadrivalent, preservative 6 completed Not Available [facility] 08/18/2022 04:55:22 Pneumococcal conjugate PCV 13 9 completed Not Available [facility] 08/18/2022 04:55:22 pneumococcal polysaccharide PPV23 4 completed Not Available [facility] 08/18/2022 04:55:22 Influenza, high-dose, quadrivalent, PF 3 completed Nolan Segura MD [address] [place] [address] [address], [place], [address], [facility] 06/09/2023 13:09:19 Past Encounters Encounter ID Performer Location Encounter Start Date Encounter Closed Date Diagnosis/Indication Diagnosis SNOMED-CT Code Diagnosis ICD10 Code Diagnosis IMO Codes Diagnosis Note [id number] Nolan Segura MD [facility] [address] [place] [place] [address] 04/24/2025 12:25:38 04/24/2025 14:00:30 Benign essential hypertension 7081483 I10 under control Osteoporosis 33265303 M8 1.0 on meds, Anxiety 95421459 F41.9 under control Depressive disorder 3548 9007 F32.9 stable with meds Hypothyroidism 90356861 E03.9 stable with meds Hyperlipidemia 95370859 E78.5 under control Osteoarthritis 524047344 M19.90 under control Restless l egs syndrome 35780679 G25.81 better with meds Sleep apnea 99099514 G47 .30 On CPAP Chronic ob structive pulmonary disease 55647530 J44.9 stable Vitamin D deficiency 347 24231 E55.9 treated, on OTC Insomnia 100401983 G47.0 0 better with meds Hypertriglyceridemia 302 658161 E78.1 advised to lose weight watch and diet Adult heal th examination 512469069 Z00.00 Colonoscop y 04/03 at [facility] - report requested and no records was foundDexa- 08/13Mammo- 09/07/2023 , already scheduledL DCT- 1, pulm nodule , no nodule on CT 02/08, DOES NOT QUALIFY ANY MOREPneumo vax 2007 and 2013Prevna r 13- 09/2018 , 02[place]20[facility] [facility]20[place] VID- 08/20/20, 09/10/20, 04/05/21, 11/25/21, 02/2024 Closed fra cture of sternum 51294432 S22.20XD [id number] Goals Section Goal Description Progress Status Start [...] plan as per care team recommendation (s) NoChange active 2023 Lissette Larsen RN Information not available 11/17/2023 16:01:49 Medicati on Regimen Follows medication regimen as per care team recommendation (s) Progressing active 2023 Lissette Larsen RN Information not available 12/27/2023 17:34:02 COPD Pt follows care pathway as dictated by provider team [facility] active 2023 Lissette Larsen RN Information not available 11/16/2023 15:09:44 Respirat ory Health Patient is free from signs and symptoms of respiratory distress [facility] Lissette Larsen RN Information not available 11/16/2023 15:09:44 Managing Anxiety Patient demonstrates increased interest in diversional activities [facility] 2023 Lissette Larsen RN Information not available 11/16/2023 15:08:43 Pain Manageme nt Plan Reports satisfaction with current pain management plan (e.g., medication and non-medication pain relief interventions) [facility] 20[facility] Lissette Larsen RN Information not available 11/17/2023 16:02:33 Stress Manageme nt Reports effective management of stress Progressing active 2023 Lissette Larsen RN Information not available 12/27/2023 17:34:09 Quality of Life Reports satisfaction with quality of life Progressing active 2023 Lissette Larsen RN Information not available 12/27/2023 17:34:12 Recreati onal Activiti es Participates in recreational activities [facility] 2023 Lissette Larsen RN Information not available 11/22/2023 16:11:35 Exercise Regularl y Follows a regular exercise regimen or instructed exercise plan as per care team recommendation (s) [facility] 2023 Lissette Larsen RN Information not available 11/22/2023 16:11:35 Activiti es of Daily Living Performs activities of daily living independently or with minimal assistance [facility] 2023 Lissette Larsen RN Information not available 11/22/2023 16:11:35 Adequate Sleep Achieves adequate, well-rested sleep with minimal disruption [facility] 2023 Lissette Larsen RN Information not available 12/27/2023 15:53:54 Medicati on Regimen Follows medication regimen as per care team recommendation (s) Progressing active 2023 Lissette Larsen RN Information not available 12/27/2023 17:34:18 Follow-u p Appointm ent(s) Attends referral and/or follow-up appointment(s) as per care team recommendation (s) [facility] 2023 Lissette Larsen RN Information not available 11/22/2023 16:11:35 Adequate Housing Conditio ns Maintains adequate housing with satisfactory living conditions [facility] 2023 Lissette Larsen RN Information not available 11/22/2023 16:11:35 Effectiv e Coping Manages life events with effective coping methods Progressing active 2023 Lissette Larsen RN Information not available 12/27/2023 17:34:22 Family and Social Support Reports family and/or social support needs are met [facility] 2023 Lissette Larsen RN Information not available 11/22/2023 16:11:35 Food Security Reports ability to access and obtain foods to meet nutritional needs [facility] 2023 Lissette Larsen RN Information not available 11/22/2023 16:11:36 Diet Adherenc e Follows prescribed or recommended diet [facility] 2023 Lissette Larsen RN Information not available 11/22/2023 16:11:36 Knowledg e of Disease or Conditio n Demonstrates understanding of disease(s) or condition(s) [facility] 2023 Lissette Larsen RN Information not available 11/22/2023 16:11:36 Smoking Cessatio n Quits smoking [facility] 2023 Lissette Larsen RN Information not available 11/22/2023 16:11:36 Symptom Manageme nt Demonstrates ability to manage and/or control symptoms [facility] active 2023 Lissette Larsen RN Information not available 11/22/2023 16:11:36 Financia l Stabilit y Reports financial status and/or income meets needs [facility] 2023 Lissette Larsen RN Information not available 11/22/2023 16:11:36 Chronic Conditio n Action Plan Follows action plan for any worsening of chronic condition(s) as per care team recommendation (s) Katiuska active 2023 Lissette Larsen RN Information not available 12/27/2023 15:53:54 Lipid Levels Maintains normal lipid levels as defined by care team Letitia active 2023 Lissette Larsen RN Information not available 11/22/2023 16:11:37 Blood Pressure Maintains blood pressure goal as defined by care team Progressing active 2023 Lissette Larsen RN Information not available 12/27/2023 17:35:10 Weight Cherie abdul Exhibits stable weight with normal fluctuation [facility] 2023 Lissette Larsen RN Information not available 11/22/2023 16:11:37 Mobility Maintains or improves baseline mobility and/or moves independently [facility] 2023 Lissette Larsen RN Information not [...] consumption as per care team recommendation (s) [facility] Lissette Larsen RN Information not available 11/22/2023 16:11:38 Home/Env ironment Safety Reports having a safe environment that promotes independence and prevents injury [facility] 2023 Lissette Larsen RN Information [...] Cessatio n Reduces or avoids substance use [facility] 2023 Lissette Larsen RN Information not [...] Member ID Melchor Member ID Guarantor Name 04/24/2025 1 [facility] (MEDICARE REPLACEMENT/ ADVANTAGE - PPO) [id number] Diamante Castro [id number] Diamante Castro 04/24/2025 2 [place] [employer] [place] [employer] Diamante Castro [id number] Diamante Castro Notes Date Note Type Note Provider Name and Address Organization Details Recorded Time 04/24/2025 text/html Pt is here today for her routine follow up, She is compliant to all her medsPT IS FASTING ( [facility] ) C/o sternum pain, she did fracture [...] def- on otcNegative stress test 05/2019 Nolan Segura MD [address] [facility] [facility] [address], [place], [address], [place] [facility] 04/24/2025 12:58:22 OBGyn Episode No OBEpisode recorded.
[2025-05-10 15:36] LABS: Hematocrit 31.3 % (37.0-47.0); Hemoglobin 8.5 g/dL (12.0-15.0); Immature Granulocyte Percent A 0.4 % (0-0.5); Lymphocytes Absolute Auto 1.36 K/mm3 (0.9-3.2); Mean Corpuscular HGB Conc 27.2 g/dl (32-36); Mean Corpuscular Hemoglobin 20.2 pg (26-34); Mean Corpuscular Volume 74.5 fl (80-100); Nucleated Red Blood Cells Absolute Auto 0.000 K/mm3 (0.0-0.012); Nucleated Red Blood Cells Perc 0.0 % (0.0-0.2); Platelet Count Result 372 k/mm3 (150-375); Red Blood Count 4.20 M/mm3 (4.2-5.4); White Blood Count 10.4 K/mm3 (4.5-10.0)
[2025-05-10 16:05] LABS: Band Neutrophils Percent 0 % (0-6); Hypochromasia 1+; Microcytosis 1+ (NORMAL); Schistocytes None Seen
[2025-05-10 16:06] LABS: Anisocytosis 2+
== END 2025-05-10 14:50 | disposition home or self-care (01) ==
LOC: ANHLAB 14:52
PROVIDERS: PCP Internal Medicine; Visit Provider Nurse Practitioner Family
DX: J44.9 Chronic obstructive pulmonary disease, unspecified (principal)
CPT/HCPCS: 36415; 85025

== ENCOUNTER 2025-05-10 15:31 | Outpatient (CLI) | payer MEDICARE, MEDICAID, SELFPAY ==
--- NOTE | ~2025-05-10 | CT_ITS ---
EXAMINATION:CT diagnostic chest wo con DATE: 05/10/2025 15:44 INDICATION: Sternal fracture TECHNIQUE: Computed tomography (CT) of the chest was performed without intravenous contrast. The dose-length product (DLP) was 294.92 mGy-cm. COMPARISON: March 03, 2025 FINDINGS: Callusing fracture of the mid sternal body present with approximately 20 degrees of apex anterior angulation. Portions of the fracture lucency remaining lucent. There is also slightly impacted appearing fracture of the manubrium with 10 to 15 degrees of apex posterior angulation. Callusing fracture of the second left anterior rib also present. No other definite fractures seen. No acute bony or soft tissue process seen. Severe emphysematous changes with scattered fibrotic changes in the lung frank not significantly changed. Heart size normal with no significant pericardial effusion or bulky lymphadenopathy. Moderate-sized hiatal hernia. Coronary artery calcifications. No acute process seen in the visualized portions of the upper abdomen or extrathoracic soft tissues. IMPRESSION: 1. Callus formation about incompletely healed mid sternal body, manubrial, and left second anterior rib fractures. 2. No gross acute or aggressive bony or soft tissue process. Severe emphysematous changes throughout the lung frank and other chronic findings as noted above. Reviewed, dictated and finalized at location [facility] IMPRESSION: 1. Callus formation about incompletely healed mid sternal body, manubrial, and left second anterior rib fractures. 2. No gross acute or aggressive bony or soft tissue process. Severe emphysemato us changes throughout the lung frank and other chronic findings as noted above .
== END 2025-05-10 15:32 | disposition home or self-care (01) ==
LOC: MICIMG 15:31
PROVIDERS: PCP Internal Medicine; Visit Provider Internal Medicine
DX: S22.20XD Unspecified fracture of sternum, subsequent encounter for fracture with routine healing (principal); X58.XXXD Exposure to other specified factors, subsequent encounter
CPT/HCPCS: 71250

== ENCOUNTER 2025-06-04 13:18 | Emergency (ER) | payer MEDICARE, MEDICAID, SELFPAY ==
--- NOTE | ~2025-06-04 | XR_ITS ---
Examination: XR chest 1V portable Clinical History: CHRIS Comparison: CT chest 05/10/2025 Technique: Portable AP Findings: Heart size normal. Emphysema and chronic interstitial changes. Probable mild superimposed interstitial thickening. No acute bony abnormality. IMPRESSION: 1. Suspect mild interstitial edema and/or pneumonitis. Reviewed, dictated and finalized at location [facility]
--- NOTE | 2025-06-04 13:28 | ECG_ITS ---
Test Date: 2025-06-04 13:33:45 Measurements Intervals [place] Rate: 95 P: 222 UT: 211 QRS: 37 QRSD: 77 T: 48 QT: 344 QTc: 433 Interpretive Statements SINUS RHYTHM POSSIBLE RIGHT VENTRICULAR CONDUCTION DELAY BORDERLINE ST-T WAVE ABNORMALITY- INFERIOR LEADS BASELINE ARTIFACT- I, II, III, AVR, AVL ,AVF, V1-V6 Compared to ECG 03/03/2025 09:18:07 NO SIGNIFICANT CHANGE Electronically Signed On 06-04-2025 13:43:43 COORDINATING PRODUCER by Alfonso Chun D.O.
[2025-06-04 13:42] VITALS: BP 122/83; PULSE 91; RESP 30; TEMP 36.7; O2SAT 98
[2025-06-04 13:43] LABS: Hematocrit 31.7 % (37.0-47.0); Hemoglobin 8.5 g/dL (12.0-15.0); Immature Granulocyte Percent A 0.4 % (0-0.5); Lymphocytes Absolute Auto 1.70 K/mm3 (0.9-3.2); Mean Corpuscular HGB Conc 26.8 g/dl (32-36); Mean Corpuscular Hemoglobin 19.5 pg (26-34); Mean Corpuscular Volume 72.9 fl (80-100); Nucleated Red Blood Cells Absolute Auto 0.000 K/mm3 (0.0-0.012); Nucleated Red Blood Cells Perc 0.0 % (0.0-0.2); Platelet Count Result 442 k/mm3 (150-375); Red Blood Count 4.35 M/mm3 (4.2-5.4); White Blood Count 10.2 K/mm3 (4.5-10.0)
[2025-06-04 13:53] LABS: Fractional Inspired Oxygen 32 %; HCO3 VBG 27.5 mEq/l (24.0-30.0); PCO2 VBG 43.3 mmHg (42.0-48.0); PO2 VBG 31.8 mmHg (35.0-45.0)
[2025-06-04 13:54] LABS: Hypochromasia 1+
[2025-06-04 13:55] LABS: Alanine Aminotransferase 17 U/L (6-35); Albumin Level 4.2 g/dL (3.5-5.1); Alkaline Phosphatase 132 U/L (38-126); Anion Gap 7 mmol/L (4-12); Aspartate Amino Transferase 21 U/L (14-36); Bilirubin,Total 0.5 mg/dL (0.2-1.3); Blood Urea Nitrogen 12 mg/dL (7-17); Calcium 9.8 mg/dL (8.4-10.2); Carbon Dioxide 29 mmol/L (22-30); Chloride 103 mmol/L (98-107); Estimated Glomerular Filt Rate > 60; Glucose 91 mg/dL (65-110); Magnesium 1.9 mg/dL (1.6-2.3); Microcytosis Occasional (NORMAL); Ovalocytes 1+; Potassium 4.0 mmol/L (3.4-5.0); Schistocytes None Seen; Sodium 139 mmol/L (137-145); Total Protein 7.6 g/dL (6.3-8.2)
[2025-06-04 13:57] LABS: Liters per Minute 4.0 LPM; pH VBG 7.421 (7.300-7.400)
[2025-06-04 14:05] VITALS: O2SAT 99
[2025-06-04] MEDS: IPRATROPIUM BR 0.02% INH SOLN 0.5 MG/2.5 ML VIAL 1 MG INHALATION (14:05)
[2025-06-04 14:06] VITALS: PULSE 93; RESP 16
[2025-06-04] MEDS: MAGNESIUM SULF 2 GM/WATER 50ML 2 GM/50 ML BAG IVPB (14:36)
[2025-06-04] MEDS: MIDAZOLAM HCL (*CRX) 2 MG/2 ML VIAL IV PUSH (14:37)
[2025-06-04 15:00] VITALS: O2SAT 88
[2025-06-04 15:16] LABS: Troponin I < 0.012 ng/mL (0.000-0.034)
--- OUTSIDE RECORDS SUMMARY | 2025-06-04 15:22 | XMS_ITS | Clinical Summary ---
Author Organization [facility] Address [address] [place] [address] Care Team Providers Care Coke Burner Name Role Phone Naldo Gonzalez MD Primary Care Provider [phone] Allergies No known active allergies Medications levothyroxine [...] this topic Medical Devices Implanted Type Area Passenger Car Cleaning Supervisor Device Identifier Shelf Expiration Date Model / Serial / Lot Tecnis 1 Piece Iol Implanted:Qty: 1 on 10/17/2023 by Shlomo Gonsales MD at [facility] Left: Eye [employer] 02/08/2026 / [id number] / Tecnis 1-Piece Iol With Tecnis Simplicity Delivery System Implanted:Qty: 1 on 12/12/2023 by Shlomo Gonsales MD at [facility] 03/08/2026 / [id number] / Insurance [facility] [place] [id number] MEDICAID [facility] MEDICARE Care Teams Coke Burner Relationship Specialty Start Date End Date Naldo Gonzalez MD PCP - General INTERNAL MEDICINE 10/17/23
--- OUTSIDE RECORDS SUMMARY | 2025-06-04 16:11 | XMS_ITS | Clinical Summary ---
Author Organization [facility] Address [address] [place] [address] Care Team Providers Care Can Capper Name Role Phone Naldo Gonzalez MD Primary Care Provider [phone] Allergies No known active allergies Medications levothyroxine [...] this topic Medical Devices Implanted Type Area Heavy Equipment Sales Manager Device Identifier Shelf Expiration Date Model / Serial / Lot Tecnis 1 Piece Iol Implanted:Qty: 1 on 10/17/2023 by Shlomo Gonsales MD at [facility] Left: Eye [employer] 02/08/2026 / [id number] / Tecnis 1-Piece Iol With Tecnis Simplicity Delivery System Implanted:Qty: 1 on 12/12/2023 by Shlomo Gonsales MD at [facility] 03/08/2026 / [id number] / Insurance [facility] [place] [id number] MEDICAID [facility] MEDICARE Care Teams Can Capper Relationship Specialty Start Date End Date Naldo Gonzalez MD PCP - General INTERNAL MEDICINE 10/17/23
--- NOTE | 2025-06-04 16:17 | ED.SOB ---
HPI - SOB/Dyspnea General Chief Complaint: Shortness of Breath/Dyspnea Stated Complaint: sob Time Seen by Provider: 06/04/25 13:27 History of Present Illness HPI Narrative: Patient with history of anxiety, COPD, presents here with shortness of breath this started earlier today, feels like she cannot catch her breath. Slight cough. Related Data Home Medications ?Medication ?Instructions ?Recorded ?Confirmed ?Last Taken ?Type aspirin 81 mg tablet,delayed 81 mg PO DAILY 05/09/19 03/03/25 03/02/25 08:00 History release (Adult Low Dose Aspirin) 81 mg atorvastatin 20 mg tablet 20 mg PO DAILY 05/09/19 03/03/25 03/02/25 08:00 History 20 mg bupropion HCl 100 mg tablet 100 mg PO BID 05/09/19 03/03/25 03/02/25 19:00 History 100 mg cetirizine 10 mg tablet (Zyrtec) 5 mg PO DAILY PRN allergy symptoms 05/09/19 03/03/25 Unknown History citalopram 40 mg tablet 20 mg PO BID 05/09/19 03/03/25 03/02/25 17:00 History 20 mg levothyroxine 112 mcg tablet 112 mcg PO DAILY 05/09/19 03/03/25 03/02/25 08:00 History 112 mcg omeprazole magnesium 20 mg 20 mg PO DAILY 05/09/19 03/03/25 03/02/25 08:00 History capsule,delayed release 20 mg tolterodine 4 mg capsule,extended 4 mg PO DAILY 05/09/19 03/03/25 03/02/25 08:00 History release 24 hr 4 mg pramipexole 1 mg tablet 1 mg PO TID 07/13/21 03/03/25 03/02/25 19:00 History 1 mg trazodone 100 mg tablet 100 mg PO QHS PRN sleep 07/13/21 03/03/25 03/02/25 19:00 History 100 mg alendronate 70 mg tablet 70 mg PO WEEKLY 02/02/23 03/03/25 02/28/25 14:00 History 70 mg lisinopril 20 mg tablet 20 mg PO BID 09/14/23 03/03/25 03/02/25 19:00 History 20 mg amlodipine 5 mg tablet 5 mg PO DAILY 03/15/24 03/03/2525 09:00 History 5 mg buspirone 10 mg tablet 10 mg PO BID 03/15/24 03/03/25 03/02/25 19:00 History 10 mg albuterol sulfate 90 mcg/actuation 2 puff inhalation Q4H PRN 03/03/25 03/03/25 03/03/25 07:00 History aerosol inhaler shortness of breath or wheezing 90 mcg Allergies Allergy/AdvReac Type Severity Reaction Status Date / Time albuterol Allergy Mild Palpitation Verified 02/27/25 09:38 s Review of Systems Review of Systems: All systems reviewed & are unremarkable except as noted in HPI and below PMFSH Past Medical History Medical History (Updated 06/04/25 @ 15:39 by Fariba Coyne MD) Fracture, sternum closed Supplemental oxygen dependent COPD with emphysema Surgical History Surgical History Bladder polyps Tonsillectomy planned Family History Family History Sibling Hypertension Grandparent Hypertension Mother Hypertension Father Hypertension Asthma Daughter Brain injury Malignant neoplastic disease Social History Social History Smoking packs per day: 2 Smoking cigarettes per day: 40.0 Years smoked: 33 Smoking pack-years: 66.00 Smoking status: Former smoker Tobacco type: cigarettes Smoking end date: 06/20/05 Alcohol intake: never Substance use: never Lack of Transportation: No Lack of Food: Never True Current Housing: I Have Housing Concerned About Future Housing: No Difficulty Paying Gas/Electric Bills: No Difficulty Paying for Meds: No Currently Unemployed: No Education: High School Diploma/GED Difficulty w/ Childcare or Family Care: No Living arrangements: with family Spiritual care concerns: No Exam Narrative: EXAMINATION OF ORGAN SYSTEMS/BODY AREAS: Constitutional: Vital signs per nursing GENERAL: Appears very anxious HEAD: Normal with no signs of head trauma. EYES: EOMI, conjunctiva normal ENT: Hearing grossly intact LUNGS: Somewhat hyperventilating, diminished/wheezing breath sounds HEART: Regular rate and rhythm ABD: Soft, nontender to palpation EXT: Normal range of motion SKIN: No rashes or lesions. NEURO: Alert. No gross focal sensory or strength deficits. PSYCH: Anxious affect Course Vital Signs Vital signs: Vital Signs Temperature 98.1 F 06/04/25 13:42 Pulse Rate 91 06/04/25 13:42 Respiratory Rate 30 H 06/04/25 13:42 Blood Pressure 122/83 06/04/25 13:42 Pulse Oximetry 98 06/04/25 13:42 Oxygen Delivery Nasal Cannula 06/04/25 13:42 Oxygen Flow Rate 5 06/04/25 13:42 Temperature 98.1 F 06/04/25 13:42 Pulse Rate 93 06/04/25 14:06 Respiratory Rate 16 06/04/25 14:06 Blood Pressure 122/83 06/04/25 13:42 Pulse Oximetry 99 06/04/25 14:05 Oxygen Delivery Nasal Cannula 06/04/25 14:05 Oxygen Flow Rate 4 06/04/25 14:05 MDM MDM Narrative Medical decision making narrative: 69F with acute dyspnea and wheezing likely due to acute COPD exacerbation or anxiety attack based on history and exam. Patient is hemodynamically stable. Nebulizer treatments are started and steroids given. EKG - 12-Lead: Performed at 1333. Interpreted by me. Sinus rhythm. Rate 95. Normal axis. AR-interval 211. QRS duration 77. QTc 433. No ST segment elevation or depression. T-wave normal. Impression: No EKG evidence of acute ischemia or dysrhythmia. Troponin and other labs negative or at her baseline; VBG unremarkable. Patient monitored in the ED for a couple of hours and on reevaluation is feeling significantly better. No respiratory distress or accessory muscle use. Good air movement bilateral lungs. She is back to her baseline 4 L on oxygen without issues. Prescriptions for steroid course provided. She is given strict return precautions, instructed to follow-up with her PCP, and patient is discharged in stable/improved condition. Differential Diagnosis Differential Diagnosis: COPD exacerbation, pneumonia, ACS, panic attack Lab Data 06/04/25 13:36 06/04/25 13:36 Labs: Lab Results 06/04/25 06/04/25 Range/Units 13:36 13:36 WBC 10.2 H (4.5-10.0) K/mm3 RBC 4.35 (4.2-5.4) M/mm3 Hgb 8.5 L (12.0-15.0) g/dL Hct 31.7 L (37.0-47.0) % MCV 72.9 L (80-100) fl MCH 19.5 L (26-34) pg MCHC 26.8 L (32-36) g/dl RDW 17.0 H (11.5-14.5) % Plt Count 442 H (150-375) k/mm3 MPV 9.3 (7.4-10.4) fl Immature Gran % (Auto) 0.4 (0-0.5) % Neut % (Auto) 71.2 (45.5-73.1) % Lymph % (Auto) 16.7 L (18.3-44.2) % [place] % (Auto) 6.4 (2.6-8.5) % Eos % (Auto) 4.5 H (0-4.4) % Baso % (Auto) 0.8 (0.2-1.2) % Lymph # (Auto) 1.70 (0.9-3.2) K/mm3 [place] # (Auto) 0.7 H (0.1-0.6) K/mm3 Eos # (Auto) 0.5 H (0-0.3) K/mm3 Baso # (Auto) 0.1 (0.0-0.1) K/mm3 Abs Immat Gran (auto) 0.04 H (0.00-0.031) K/mm3 Absolute Neuts (auto) 7.3 H (1.3-6.7) K/mm3 Absolute Nucleated RBC 0.000 (0.0-0.012) K/mm3 Band Neutrophils % Not Reportable Nucleated RBC % 0.0 (0.0-0.2) % Platelet Estimate Increased (Adequate) Hypochromasia 1+ Microcytosis Occasional (NORMAL) Ovalocytes 1+ Schistocytes None seen Sodium 139 (137-145) mmol/L Potassium 4.0 (3.4-5.0) mmol/L Chloride 103 (98-107) mmol/L Carbon Dioxide 29 (22-30) mmol/L Anion Gap 7 (4-12) mmol/L BUN 12 (7-17) mg/dL Creatinine 0.80 (0.7-1.0) mg/dL Estim Creat Clear Calc Not Reportable Estimated GFR > 60 (59 - ) Glucose 91 (65-110) mg/dL Calcium 9.8 (8.4-10.2) mg/dL Magnesium 1.9 Cancelled (1.6-2.3) mg/dL Total Bilirubin 0.5 (0.2-1.3) mg/dL AST 21 (14-36) U/L ALT 17 (6-35) U/L Alkaline Phosphatase 132 H (38-126) U/L Troponin I < 0.012 (0.000-0.034) ng/mL Total Protein 7.6 (6.3-8.2) g/dL Albumin 4.2 (3.5-5.1) g/dL ABG Data ABG results: 06/04/25 13:36 VBG pH 7.421 H* VBG pCO2 43.3 VBG pO2 31.8 L VBG HCO3 27.5 O2 Delivery Device Nasal cannula O2 Liters/Min 4.0 FiO2 32 Imaging Data Radiologist's impression: ITS Impressions Chest X-Ray 06/04/25 14:28 IMPRESSION: 1. Suspect mild interstitial edema and/or pneumonitis. Discharge Plan Discharge Clinical Impression: Shortness of breath, Anxiety Patient Disposition: Home Condition: Stable Instructions: Chronic Bronchitis (ED) Additional Instructions: Please follow up with your doctor; you can always return for any further issues. Patient Language: Nazanin Prescriptions: New prednisone 20 mg tablet 40 mg PO DAILY 4 Days Qty: 8 0RF No Action lisinopril 20 mg tablet 20 mg PO BID amlodipine 5 mg tablet 5 mg PO DAILY buspirone 10 mg tablet 10 mg PO BID atorvastatin 20 mg tablet 20 mg PO DAILY cetirizine [Zyrtec] 10 mg tablet 5 mg PO DAILY PRN (Reason: allergy symptoms) tolterodine 4 mg capsule,extended release 24hr 4 mg PO DAILY levothyroxine 112 mcg tablet 112 mcg PO DAILY omeprazole magnesium 20 mg capsule,delayed release(DR/EC) 20 mg PO DAILY citalopram 40 mg tablet 20 mg PO BID bupropion HCl 100 mg tablet 100 mg PO BID aspirin [Adult Low Dose Aspirin] 81 mg tablet,delayed release (DR/EC) 81 mg PO DAILY pramipexole 1 mg tablet 1 mg PO TID trazodone 100 mg tablet 100 mg PO QHS PRN (Reason: sleep) alendronate 70 mg tablet 70 mg PO WEEKLY Patient Comments: thursday albuterol sulfate 90 mcg/actuation HFA aerosol inhaler 2 puff INHALATION Q4H PRN (Reason: shortness of breath or wheezing) amoxicillin-pot clavulanate 875-125 mg tablet 1 tablet PO Q12H 5 Days Qty: 10 0RF hydrocodone-acetaminophen 5-325 mg Tablet 1 tablet PO Q4H PRN (Reason: Pain Rated 4-6) Qty: 6 0RF azelastine 137 mcg (0.1 %) spray,non-aerosol 1 spray intranasal Q12H Qty: 30 5RF Rx Instructions: administer into each nostril fluticasone propionate 50 mcg/actuation spray,suspension See Rx Instructions .ROUTE .COMPLEX Qty: 16 11RF Dose Instruction: USE ONE SPRAY IN EACH NOSTRIL TWICE DAILY FOR 30 DAYS Rx Instructions: USE ONE SPRAY IN EACH NOSTRIL TWICE DAILY FOR 30 DAYS arformoterol [Brovana] 15 mcg/2 mL solution for nebulization 2 ml inhalation BID Qty: 120 11RF Yupelri 175 mcg/3 mL solution for nebulization 175 mcg inhalation DAILY Qty: 90 11RF zafirlukast 20 mg tablet See Rx Instructions .ROUTE .COMPLEX Qty: 60 11RF Dose Instruction: TAKE 1 TABLET BY MOUTH EVERY 12 HOURS. WAIT 1 TO 2 HOURS AFTER FOOD Rx Instructions: TAKE 1 TABLET BY MOUTH EVERY 12 HOURS. WAIT 1 TO 2 HOURS AFTER FOOD Sutab 1.479-0.188- 0.225 gram tablet See Rx Instructions PO PER PKG DIR Qty: 24 0RF Rx Instructions: PO PER PKG DIR roflumilast 500 mcg tablet See Rx Instructions .ROUTE .COMPLEX Qty: 90 3RF Dose Instruction: TAKE 1 TABLET BY MOUTH DAILY Rx Instructions: TAKE 1 TABLET BY MOUTH DAILY budesonide 0.25 mg/2 mL suspension for nebulization 0.25 mg inhalation Q12H Qty: 120 11RF epinephrine [EpiPen 2-Gilberto] 0.3 mg/0.3 mL auto-injector 0.3 mg IM ONCE PRN (Reason: hypersensitivity reaction) Qty: 2 0RF Rx Instructions: as a single dose; may repeat once after 5-15 minutes. Dupixent Pen 300 mg/2 mL pen injector 300 mg subcut .EVERY 2 WEEKS Qty: 4 5RF levalbuterol HCl 1.25 mg/3 mL solution for nebulization See Rx Instructions .ROUTE .COMPLEX Qty: 825 3RF Dose Instruction: INHALE THE CONTENTS OF 1 VIAL VIA NEBULIZER THREE TIMES DAILY NEEDED FOR SHORTNESS OF BREATH OR WHEEZING. Rx Instructions: INHALE THE CONTENTS OF 1 VIAL VIA NEBULIZER THREE TIMES DAILY NEEDED FOR SHORTNESS OF BREATH OR WHEEZING. Follow-up/Referrals: Lisa,Naldo Callahan MD [Primary Care Provider, Unknown]
== END 2025-06-04 17:31 | disposition home or self-care (01) ==
PROVIDERS: Emergency Provider Emergency Medicine; PCP Internal Medicine
DX: R06.02 Shortness of breath (principal); F41.9 Anxiety disorder, unspecified; J43.9 Emphysema, unspecified; Z87.891 Personal history of nicotine dependence; Z79.899 Other long term (current) drug therapy; Z79.82 Long term (current) use of aspirin
CPT/HCPCS: 36415; 71045; 80053; 82803; 83735; 84484; 85025; 93005; 96365; 96366; 96375; 99284; J2250; J2919; J3475